=== PATIENT | female | born 1940 | race Caucasian/White ===

== ENCOUNTER 2016-10-23 12:17 | Inpatient (IN) ==
[2016-10-23 13:38] LABS: BASOPHILS # (AUTO) 0.1 K/uL (0-0.2); BASOPHILS % (AUTO) 0.5 % (0.0-3.0); EOSINOPHILS % (AUTO) 0.3 % (0.0-7.0); HEMATOCRIT 39.5 % (37.0-47.0); HEMOGLOBIN 14.2 g/dl (12.0-16.0); LYMPHOCYTES # (AUTO) 0.8 K/uL (0.60-3.4); LYMPHOCYTES % (AUTO) 5.3 (10.0-50.0); MEAN CORPUSCULAR HEMOGLOBIN 30.7 pg (27.0-31.0); MEAN CORPUSCULAR HGB CONC 35.9 (31.8-35.4); MEAN CORPUSCULAR VOLUME 85.3 fl (81.0-99.0); MONOCYTES % (AUTO) 6.7 (0-10); NEUTROPHILS # (AUTO) 12.7 K/ul (2.0-6.9); NEUTROPHILS % (AUTO) 86.2; PLATELET COUNT 266 10^3/uL (140-440); RED BLOOD COUNT 4.63 10^6/ul (4.20-5.40); WHITE BLOOD COUNT 14.73 K/ul (4.6-10.2)
[2016-10-23 14:28] LABS: ALBUMIN 3.4 g/dL (3.4-5.0); ALBUMIN/GLOBULIN RATIO 0.81; ANION GAP 21.9; BILIRUBIN,TOTAL 1.24 mg/dL (0.00-1.20); BUN/CREATININE RATIO 35.83; CALCIUM 10.5 mg/dL (8.2-10.2); CREATININE 1.2 mg/dL (0.60-1.30); POTASSIUM 3.9 mmol/L (3.5-5.10); TOTAL PROTEIN 7.6 g/dL (5.8-8.1); TROPONIN I 0.03 ng/ml (0.0000-0.4000)
[2016-10-23 14:31] LABS: CREATINE KINASE MB 14.7 ng/ml (0.0-3.6)
--- NOTE | 2016-10-23 14:45 | DI ---
EXAM: Single AP view of the chest HISTORY: Cough. COMPARISON: None FINDINGS: The cardiomediastinal silhouette is normal. There is no pneumothorax or pleural effusion. There is no consolidation, nodule or mass. Calcified right hilar lymph nodes are present. Osseou s structures demonstrate degenerative disease of the spine and left shoulder. IMPRESSION: No acute cardiopulmonary process.
--- NOTE | 2016-10-23 14:53 | CT ---
EXAM: CT ABDOMEN AND PELVIS HISTORY: Abdominal pain TECHNIQUE: CT abdomen and pelvis without intravenous contrast. Images were reconstructed using 5 m m section thickness. Reformations were prepared. COMPARISON: None FINDINGS: Diagnostic limitations exist without including contrast enhanced images. No focal hepatic or spleni c lesions identified. 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 Gallbladder is absent. Pancreas and adrenal glands are within normal limits. Lobulated virgen l contours likely congenital in nature. No hydronephrosis or nephrolithiasis. Ureters are clear. There is mild atherosclerotic disease. No gastric distension. An appendix, if present is not seen. Bowel gas pattern is nonobstructive. Uterus and urinary bladder are within normal limits. There is no ascites or inflammatory infiltrati on of the abdominal fat. No abdominal wall hernia. Bones reveal moderately severe degenerative disc and facet disease of the lumbar spine. Lung bases are free of acute infiltrate. No pneumoperitoneum. IMPRESSION: No acute intra-abdominal or pelvic abnormality identified. Chronic and miscellaneous f indings as described above.
--- NOTE | 2016-10-23 15:14 | ED.PDOC ---
General ED Provider: Dr. JAYME AC Chief Complaint: Weakness Stated Complaint: weakness, fall , failure to thrive Time Seen by Physician: 12:30 Mode of Arrival: Stretcher Information Source: Patient, EMT Exam Limitations: No limitations Primary Care Provider: MODESTO AUGUSTIN Nursing and Triage Documentation Reviewed and Agree: Yes (denied neck or back pain has no pain) Miscellaneous Complaint Exam - Complex/Multi-System Complaint/Exam Onset/Duration: this is a steadily getting worse process , presented with no pain Symptoms Are: Still present Episodes Lasting: Weeks Initial Severity: Moderate Current Severity: Mild Location of Pain: no Pain Radiates to: N/A Character: N/A Aggravating: N/A Associated Signs and Symptoms: Reports: Dizziness, Weakness, Cough. Denies: Decreased responsiveness, Confusion, Agitation, Syncope, Headache, Short of air , Wheezing, Hemoptysis, Chest pain, Palpitations, Edema, Nausea, Vomiting, Diarrhea, Abdominal pain, Back pain, Dysuria, Hematemesis, Melena, Decreased oral intake, Fever, Diaphoresis, Immunocompromised, Anticoagulation Therapy, Recent medication changes, Indwelling medical scribe, Prior MRSA, Prior VRE, Recent trauma, Remote trauma Related History: Other (DINED HISTORY) Recent Echo/LV Function: No Respiratory Distress: None JVD Present: No Tachypnea Present: No Stridor Present: No Abdominal Findings: Present: Normal findings Glascow Coma Scale (see protocol): 15 Meningeal Signs Positive: No Focal Weakness: Present: None Focal Sensory Loss: Present: None Gait: Normal Gag Reflex Present: Yes Babinski Sign: Negative Right, Negative Left Skin Findings: Present: Normal findings Differential Diagnosis: Aspiration, Cardiac Ischemia, Metabolic Abnormality Quality Indicators for Cardiac Chest Pain: EKG in 10min. Quality Indicators for AMI: EKG in 10min. Quality Indicator For Non-Traumatic Chest Pain/Syncope: EKG Performed Review of Systems - Review Of Systems Constitutional: Reports: Malaise, Weakness Eyes: Reports: No symptoms Ears, Nose, Mouth, Throat: Reports: No symptoms Respiratory: Reports: Cough Cardiac: Reports: No symptoms GI: Reports: No symptoms : Reports: No symptoms Musculoskeletal: Reports: No symptoms Skin: Reports: No symptoms Neurological: Reports: No symptoms Endocrine: Reports: No symptoms Hematologic/Lymphatic: Reports: No symptoms All Other Systems: Reviewed and Negative Past Medical History - Past Medical History Previously Healthy: Yes Endocrine: Reports: None Cardiovascular: Reports: None Respiratory: Reports: None Hematological: Reports: None Gastrointestinal: Reports: None Genitourinary: Reports: None Neuro/Psych: Reports: None Musculoskeletal: Reports: None Cancer: Reports: None Last Menstrual Period: MENOPAUSE - Surgical History General Surgical History: Reports: None - Family History Family History: Reports: None - Social History Smoking Status: Current every day smoker Hx Substance Use: No Alcohol Screening: None - Immunizations Tetanus Shot up to Date: No Physical Exam - Physical Exam Appearance: Well-appearing, No pain distress, Well-nourished Eyes: JUAN, EOMI, Conjunctiva clear ENT: Ears normal, Nose normal, Oropharynx normal Respiratory: Airway patent, Breath sounds clear, Breath sounds equal, Respirations nonlabored Cardiovascular: RRR, Pulses normal, No rub, No murmur GI/: Soft, Nontender, No masses, Bowel sounds normal, No Organomegaly Musculoskeletal: Normal strength, ROM intact, No edema, No calf tenderness Skin: Warm, Dry, Normal color Neurological: Sensation intact, Motor intact, Reflexes intact, Cranial nerves intact, Alert, Oriented Psychiatric: Affect appropriate, Mood appropriate Physician Notification - Case Discussed Physician Notified: LAN Time of Notification: 15:17 Admit To: Inpatient Critical Care Note - Critical Care Note Total Time (mins): 0 Course - Course Hematology/Chemistry: 10/23/16 13:10 10/23/16 13:10 Orders, Labs, Meds: Lab Review 10/23/16 13:10 WBC 14.73 H RBC 4.63 Hgb 14.2 Hct 39.5 MCV 85.3 MCH 30.7 MCHC 35.9 H RDW Coeff of Yocasta 12.7 Plt Count 266 Immature Gran % (Auto) 1.0 Neut % (Auto) 86.2 Lymph % (Auto) 5.3 L [place] % (Auto) 6.7 Eos % (Auto) 0.3 Baso % (Auto) 0.5 Immature Gran # (Auto) 0.1 Neut # 12.7 H Lymph # 0.8 [place] # 1.0 Eos # 0.0 Baso # 0.1 Sodium 140 Potassium 3.9 Chloride 97 L Carbon Dioxide 25 Anion Gap 21.9 BUN 43 H Creatinine 1.20 Estimated GFR (MDRD) 44.00 BUN/Creatinine Ratio 35.83 Glucose 320 H Lactic Acid 13.6 Calcium 10.5 H Total Bilirubin 1.24 H AST 39 H ALT 35 Alkaline Phosphatase 99 Total Creatine Kinase 783 CK-MB (CK-2) 14.7 H* CK-MB (CK-2) % 1.83332 Troponin I 0.0300 Total Protein 7.6 Albumin 3.4 Globulin 4.2 Albumin/Globulin Ratio 0.81 Procalcitonin 0.09 Orders Category Date Time Status EKG-(ED ONLY) Stat CARDIO 10/23/16 13:59 Completed BLOOD CULTURE Stat LAB 10/23/16 13:10 Received CBC W/ AUTO DIFF Stat LAB 10/23/16 13:10 Completed COMPREHENSIVE METABOLIC PANEL Stat LAB 10/23/16 13:10 Completed CREATINE KINASE Stat LAB 10/23/16 13:10 Completed LACTIC ACID Stat LAB 10/23/16 13:10 Completed PROCALCITONIN Stat LAB 10/23/16 13:10 Completed TROPONIN I Stat LAB 10/23/16 13:10 Completed UA [URINALYSIS C & S IF INDICATED] Stat LAB 10/23/16 12:39 Uncollected CHEST, 1V AP ONLY Stat RADS 10/23/16 12:[address] ABDOMEN/PELVIS WO CONTRAST Stat RADS 10/23/16 12:36 Completed Vital Signs: Temp Pulse Resp BP Pulse Ox 10/23/16 12:19 98.1 F 87 18 130/70 100 Departure - Departure Time of Disposition: 15:16 Disposition: ADMITTED INPATIENT Discharge Problem: New onset type 2 diabetes mellitus Instructions: Weakness (ED) Condition: Good Pt referred to PMD for follow-up: Yes Additional Instructions: Please call your Family Physician as soon as possible to schedule a follow-up appointment. Allergies/Adverse Reactions: Allergies Unobtainable Allergy (Unverified 10/23/16 12:36) pt sl confused--unable to give accurate info Home Medications: Ambulatory Orders 1 [No Reported Medications] 10/23/16
[2016-10-23] MEDS ORDERED: SODIUM CHLORIDE 1,800 ML IV SCH (15:30)
[2016-10-23] MEDS: SODIUM CHLORIDE 1,000 ML IV SCH (16:55)
[2016-10-23 17:18] VITALS: BMI 25.9
[2016-10-23] MEDS: HUMULIN R SUBCUT PRN ×2 (17:47→22:43)
[2016-10-23 22:30] LABS: TROPONIN I 0.027 ng/ml (0.0000-0.4000)
[2016-10-23 22:44] LABS: CREATINE KINASE MB 5.9 ng/ml (0.0-3.6)
[2016-10-24] MEDS: SODIUM CHLORIDE 1,000 ML IV SCH ×3 (00:33→18:38)
[2016-10-24] MEDS: HUMULIN R SUBCUT PRN ×4 (05:23→23:14)
[2016-10-24 05:40] LABS: BASOPHILS # (AUTO) 0.1 K/uL (0-0.2); BASOPHILS % (AUTO) 0.4 % (0.0-3.0); EOSINOPHILS # (AUTO) 0.3 K/ul (0.0-0.7); EOSINOPHILS % (AUTO) 2.4 % (0.0-7.0); HEMATOCRIT 33.7 % (37.0-47.0); IMMATURE GRANULOCYTE % (AUTO) 0.7 % (0.0-5.0); LYMPHOCYTES # (AUTO) 1.6 K/uL (0.60-3.4); LYMPHOCYTES % (AUTO) 14.4 (10.0-50.0); MEAN CORPUSCULAR HEMOGLOBIN 30.8 pg (27.0-31.0); MEAN CORPUSCULAR HGB CONC 35.6 (31.8-35.4); MEAN CORPUSCULAR VOLUME 86.6 fl (81.0-99.0); MONOCYTES # (AUTO) 1.1 K/uL (0.4-2.0); MONOCYTES % (AUTO) 9.8 (0-10); NEUTROPHILS # (AUTO) 8.1 K/ul (2.0-6.9); NEUTROPHILS % (AUTO) 72.3; PLATELET COUNT 219 10^3/uL (140-440); RED BLOOD COUNT 3.89 10^6/ul (4.20-5.40); WHITE BLOOD COUNT 11.22 K/ul (4.6-10.2)
[2016-10-24 05:56] LABS: ALBUMIN 2.7 g/dL (3.4-5.0); ALBUMIN/GLOBULIN RATIO 0.82; ANION GAP 16.8; BILIRUBIN,TOTAL 0.99 mg/dL (0.00-1.20); BUN/CREATININE RATIO 43.03; CALCIUM 9.4 mg/dL (8.2-10.2); CREATININE 0.79 mg/dL (0.60-1.30); POTASSIUM 3.8 mmol/L (3.5-5.10)
[2016-10-24 06:12] LABS: TROPONIN I 0.03 ng/ml (0.0000-0.4000)
[2016-10-24 06:13] LABS: CREATINE KINASE MB 3.2 ng/ml (0.0-3.6)
[2016-10-24 08:34] LABS: CHOL/HDL RATIO 4.5 (4.5-5.5)
[2016-10-24] MEDS: JANUVIA PO SCH (08:38)
[2016-10-24] MEDS: GLUCOPHAGE PO SCH ×2 (08:38→18:38)
[2016-10-24] MEDS: ZESTRIL PO SCH (08:39)
--- NOTE | 2016-10-24 15:16 | US ---
EXAM: ULTRASOUND CAROTID DUPLEX, BILATERAL HISTORY: Confusion, disorientation, weakness FINDINGS: Wall-scale ultrasound, color Doppler and spectral analysis was performed. Velocities are in meters per second. By wall scale and color Doppler imaging, there were multiple regions of heterogeneous plaque formati on identified within the carotid bulbs and internal carotid arteries. These regions of plaque appea red to remain less than 50% vessel diameter. RIGHT: External carotid artery peak systolic velocity: 1.3 Common carotid artery peak systolic velocity/end diastolic velocity: 0.6/0.0 Internal carotid artery peak systolic velocity: 0.7 ICA/CCA peak systolic velocity ratio: 1.3 ICA end diastolic velocity: 0.0 LEFT: External carotid artery peak systolic velocity: 1.2 Common carotid artery peak systolic velocity/end diastolic velocity: 0.8/0.1 Internal carotid artery peak systolic velocity: 0.9 ICA/CCA peak systolic velocity ratio: 1.1 ICA end diastolic velocity: 0.2 The right and left vertebral arteries were antegrade. IMPRESSION: 1. By wall scale and color Doppler imaging, there were multiple regions of heterogeneous plaque for mation identified within the carotid bulbs and internal carotid arteries. These regions of plaque a ppeared to remain less than 50% vessel diameter. 2. Internal carotid artery peak systolic velocities and ICA/CCA peak systolic velocity ratios indic ate no hemodynamically significant stenosis bilaterally. 3. Both tibial arteries were antegrade.
[2016-10-24] MEDS ORDERED: LOVENOX SUBCUT SCH (15:30)
--- NOTE | 2016-10-24 16:09 | CT ---
EXAM: CT head without contrast HISTORY: Altered mental status COMPARISON: None TECHNIQUE: Helical axial CT of the head was performed without contrast. Coronal and sagittal reconst ructions were performed. FINDINGS: There is an area of low attenuation seen involving the left posterior temporal and occipital area w ith some minimal mass effect. There are small punctate foci of relatively increased attenuation se en in the area as well. There is no lobar hemorrhage. There is no midline shift or herniation. Ther e is no hydrocephalus or subdural. There is noted to be a fair amount of atrophy and chronic small vessel ischemia in the white matter otherwise. There are no acute calvarial lesions. Visualized orbits and globes are unremarkable. The mastoid a ir cells demonstrate no significant soft tissue opacification. The visualized paranasal sinuses show no air-fluid levels. IMPRESSION: 1. Low attenuation as described in the left temporal occipital area consistent with a subacute infa rction probably with some minimal petechial hemorrhage. No evidence for lobar hemorrhage or mass ef fect or midline shift. 2. Atrophy and small vessel ischemic change. Report called to Addy RODRIGUEZ at 4:00 p.m.
[2016-10-25 04:52] LABS: BILIRUBIN,URINE Negative (NEGATIVE); KETONES,URINE Negative (NEGATIVE); LEUKOCYTE ESTERASE ,URINE Trace (NEGATIVE); NITRITE,URINE Negative (NEGATIVE); PH,URINE 5.5 (5-9); PROTEIN,URINE 1+ (NEGATIVE); URINE, BLOOD Trace-intact (NEGATIVE)
[2016-10-25 05:02] LABS: ADD URINE MICROSCOPIC YES
[2016-10-25 05:06] LABS: BACTERIA,URINE 1+ (NOT PRESENT)
[2016-10-25 05:48] LABS: BASOPHILS # (AUTO) 0.1 K/uL (0-0.2); BASOPHILS % (AUTO) 0.8 % (0.0-3.0); EOSINOPHILS # (AUTO) 0.3 K/ul (0.0-0.7); EOSINOPHILS % (AUTO) 2.5 % (0.0-7.0); HEMATOCRIT 34.6 % (37.0-47.0); HEMOGLOBIN 12.1 g/dl (12.0-16.0); IMMATURE GRANULOCYTE % (AUTO) 1.9 % (0.0-5.0); LYMPHOCYTES # (AUTO) 1.6 K/uL (0.60-3.4); LYMPHOCYTES % (AUTO) 16.4 (10.0-50.0); MEAN CORPUSCULAR HEMOGLOBIN 30.7 pg (27.0-31.0); MEAN CORPUSCULAR VOLUME 87.8 fl (81.0-99.0); MONOCYTES # (AUTO) 1.1 K/uL (0.4-2.0); NEUTROPHILS # (AUTO) 6.6 K/ul (2.0-6.9); NEUTROPHILS % (AUTO) 67.4; PLATELET COUNT 210 10^3/uL (140-440); RED BLOOD COUNT 3.94 10^6/ul (4.20-5.40); WHITE BLOOD COUNT 9.83 K/ul (4.6-10.2)
[2016-10-25] MEDS: HUMULIN R SUBCUT PRN ×4 (05:49→22:31)
[2016-10-25 06:23] LABS: ALBUMIN 2.5 g/dL (3.4-5.0); ALBUMIN/GLOBULIN RATIO 0.81; BILIRUBIN,TOTAL 0.66 mg/dL (0.00-1.20); BUN/CREATININE RATIO 36.58; CALCIUM 8.9 mg/dL (8.2-10.2); CREATININE 0.82 mg/dL (0.60-1.30); TOTAL PROTEIN 5.6 g/dL (5.8-8.1)
[2016-10-25] MEDS: GLUCOPHAGE PO SCH ×2 (07:49→16:56)
[2016-10-25] MEDS: ZESTRIL PO SCH (08:37)
[2016-10-25] MEDS: JANUVIA PO SCH (08:37)
[2016-10-25] MEDS: ROCEPHIN 1 GM in SODIUM CHLORIDE 50 ML IV SCH (09:00)
[2016-10-25] MEDS: SODIUM CHLORIDE 1,000 ML IV SCH ×2 (09:05→20:07)
--- NOTE | 2016-10-25 12:53 | PCM.PROG ---
Attending Provider: ATTENDING PROVIDER: Dr. PAVEL MONTENEGRO DATE OF SERVICE: 10/25/16 SUBJECTIVE: This 76 year old WHITE/ F was hospitalized 10/23/16. The patient is alert, lying in bed. CT scan of head showed left temporal ischemia with small hemorrhage. The patient is awake and alert but still has some confusion. REVIEW OF SYSTEMS: CONSTITUTIONAL: Weakness. No fever, no chills. ENDOCRINE: No weight loss or weight gain. HEENT: No sinus drainage, no sore throat. CVS: No angina symptoms. No CHF symptoms. No palpitations. No atypical chest pain for CAD. No shortness of breath. RESPIRATORY: No cough, no hemoptysis. GI: No melena. No abdominal pain. No nausea, no vomiting. : No hematuria. No polyuria. SKIN: Abrased area to buttocks. MUSCULOSKELETAL: No pain. SHEEP STICKER: Awake and alert, some confusion. No blackout, no dizziness. No headache. No double vision. PSYCHIATRIC: Not anxious; no depression. No suicidal thoughts. No homicidal thoughts. PHYSICAL EXAMINATION: GENERAL: Lying in bed in no distress. VITAL SIGNS: Temperature 97.8 F, Pulse 77, Respiratory Rate 19, BP 139/70, Pulse Ox 96% HEENT: Normocephalic, atraumatic. Mucosa is dry, pallor positive. NECK: No JVP, no carotid bruit. No lymphadenopathy. CARDIAC: S1, S2, no S3. Systolic murmur. LUNGS: Decreased breath sounds. Clear to auscultation. ABDOMEN: Soft, non-tender. Bowel sounds active. No rigidity, guarding or CVA tenderness. EXTREMITIES: No clubbing, cyanosis or edema. NEUROLOGIC: Awake, alert with some confusion to person and place. Moving all four extremities. Gait is not tested yet as patient is weak . LYMPHATIC: No palpable lymph nodes SKIN: Dry. Abrased area to buttocks. MUSCULOSKELETAL: No joint swelling. LAB REVIEW: 10/25/16 05:30 10/25/16 05:30 10/25/16 05:30: WBC 9.83, RBC 3.94 L, Hgb 12.1, Hct 34.6 L, MCV 87.8, MCH 30.7, MCHC 35.0, RDW Coeff of Yocasta 12.6, Plt Count 210, Immature Gran % (Auto) 1.9, Neut % (Auto) 67.4, Lymph % (Auto) 16.4, [place] % (Auto) 11.0 H, Eos % (Auto) 2.5 , Baso % (Auto) 0.8, Immature Gran # (Auto) 0.2, Neut # 6.6, Lymph # 1.6, [place] # 1.1, Eos # 0.3, Baso # 0.1, Sodium 139, Potassium 4.0, Chloride 100, Carbon Dioxide 30, Anion Gap 13.0, BUN 30 H, Creatinine 0.82, Estimated GFR (MDRD) 68.00, BUN/Creatinine Ratio 36.58, Glucose 224 H, Calcium 8.9, Total Bilirubin 0.66, AST 17, ALT 19, Alkaline Phosphatase 89, Total Protein 5.6 L, Albumin 2.5 L, Globulin 3.1, Albumin/Globulin Ratio 0.81 10/25/16 02:30: Urine Color Yellow, Urine Clarity Clear, Urine pH 5.5, Ur Specific [place] <=1.005, Urine Protein 1+, Urine Glucose (UA) 1+, Urine Ketones Negative, Urine Blood Trace-intact, Urine Nitrite Negative, Urine Bilirubin Negative, Urine Urobilinogen 0.2, Ur Leukocyte Esterase Trace, Urine Microscopic RBC 2-5, Urine Microscopic WBC 0-2, Ur Squamous Epith Cells 0-2, Amorphous Sediment 1+, Urine Bacteria 1+ 10/24/16 05:15: Triglycerides 140, Cholesterol 180, LDL Cholesterol, Calc 112, VLDL Cholesterol 28, HDL Cholesterol 40, Cholesterol/HDL Ratio 4.5 ASSESSMENT: 1. Acute left temporal infarct with hemorrhage, will have MRI today. 2. Diabetes mellitus, new onset. 3. Early rhabdomyolysis. 4. Status post fall. 5. Failure to thrive. 6. UTI. 7. Status post dehydration. 8. Abrasion to buttocks, grew gram negative rods. PLAN: 1. Rocephin 1 gm daily 2. Straight catheter 3. UA 4. MRI of the brain with and without 5. PT/OT consultation Plan and coordination of the patient's care discussed in the presence of Tube Sizer Operator and nurse. CONDITION: Stable SCRIBED BY: MAMADOU CRAFT, Print Traffic Manager scribed while in presence of service performed by Dr. PAVEL MONTENEGRO on 10/25/16 ([id number])
[2016-10-25] MEDS ORDERED: CALMOSEPTINE OINTMENT TP ONE (14:30)
--- NOTE | 2016-10-25 14:56 | HP ---
DATE OF SERVICE: 10/23/16 CHIEF COMPLAINT: Weakness. HISTORY OF PRESENT ILLNESS: This is a 76-year-old female who lives at home by herself, gets [employer]. When the [employer] worker went to her home she was found lying on the floor, did not know how long she had been on the floor, not feeling well, no energy, unkept, strong urine odor. The EMT brought the patient to the emergency room and she was seen by Dr. Howard. The patient was awake but not oriented, confused. Initial blood work showed sugars were 320. Creatinine kinase 783, CK-MB 14. White count 14,000. The patient was complaining of generalized weakness and tiredness. At that time, the patient was admitted to the hospital for failure to thrive, new onset diabetes and further evaluation. CT abdomen and pelvis was negative in the emergency room. REVIEW OF SYSTEMS: CONSTITUTIONAL: Weakness, tiredness. Unable to care for herself. No fever, no chills. HEENT: Normal. ENDOCRINE: No weight gain; no weight loss. CVS: No chest pain. No PND, no orthopnea. No shortness of breath. No PND, no orthopnea. RESPIRATORY: No cough, no congestion. No hemoptysis. GI: No nausea, no vomiting. No abdominal pain. No melena. : Frequency and burning of urination. MUSCULOSKELETAL: No joint swelling. PSYCHIATRIC: Not anxious. No depression. No suicidal thoughts. No homicidal thoughts. SKIN: Intact. PAST MEDICAL HISTORY: 1. Hypertension 2. CAD, does not know what type 3. Alzheimer's dementia 4. Peripheral neuropathy 5. Diabetes but not on any medications PAST SURGICAL HISTORY: 1. Cataract surgery PERSONAL HISTORY: Lives at home, dependent upon ADLs. The patient does not smoke now, use to smoke in the past. FAMILY HISTORY: Significant for heart problems. MEDICATIONS: (HOME) None at this time. ALLERGIES: NKDA PHYSICAL EXAMINATION: GENERAL: Sick-looking lady lying in bed not in any distress. V/S: BP 130/70, respiratory rate 18, heart rate 87, temperature 98.1. HEENT: Atraumatic, normocephalic. No scleral icterus. Mucosa dry. NECK: Supple. No JVD, no bruit. No lymphadenopathy. No thyromegaly. HEART: S1, S2 normal. No murmur. No cyanosis or clubbing. No ascites. LUNGS: Decreased and clear to auscultation. No rales or rhonchi. ABDOMEN: Soft, nontender. Bowel sounds are active. No CVA tenderness. No rigidity or guarding. EXTREMITIES: No cyanosis, clubbing or pedal edema. MUSCULOSKELETAL: Normal joints, no swelling. NEUROLOGIC: The patient is awake and alert. Orientation - confused to place and person. Moving all four extremities. SKIN: Intact. LYMPHATIC: No lymph nodes palpable. LABS: White count 14.73, hemoglobin 14.2, hematocrit 39.5, platelet count 266. Sodium 140, potassium 3.9, chloride 97, bicarb 25, BUN 43, creatinine 1.20, glucose 320. Lactic acid 13.6, calcium 10.5. CK-MB 14.7. ASSESSMENT: 1. NEW ONSET DIABETES 2. FAILURE TO THRIVE 3. ALZHEIMER'S DEMENTIA 4. EARLY RHABDOMYOLYSIS 5. ELEVATED WHITE COUNT, RULE OUT ANY INFECTION PLAN: 1. Admit the patient to regular floor. 2. CBC, CMP today and daily. 3. Cardiac enzymes and troponin. 4. Accu-Cheks with coverage. 5. HB A1C. 6. IV fluids at 60 mL/hr. 7. Fall precautions. 8. Decubitus ulcer precautions. 9. Will get a CT scan of the head. TIME SPENT: MORE THAN 70 minutes MTDD
--- NOTE | 2016-10-25 17:04 | RS.OTINEVL ---
Subjective - Patient information Date of Evaluation: 10/25/16 Date of Arrival on Unit: 10/25/16 Admitted From:: Home Usual Living Arrangement: Alone Living Arrangement Comments: Lives in her home alone. She reports she cooks for herself. She reports they found her on the floor. Home Environment: House Subjective Information/ Patient Comments:: I have a hard time controlling my left arm. I am used to the right one but not the left. 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 Pt walked with a rolling walker at home. Current Level of Function: Independent Current Equipment Used at Home: Has a wheelchair Pain Assessment - Pain Pain Score: 0 (Pt said her right leg hurt) Pain Location Body Site: Knee Pain Aggravating Factors: Changing Position Pain Alleviating Factors: Medication Interventions - Objective Patient Orientation: Person, Place, Situation Current Interventions: IV's Observation: Pt has some scabs on her left elbow from other falls. Pt reported she has had several falls. Interventions - ROM Right Upper Extremity AROM: WFL's Left Upper Extremity AROM: Slight limitation - Strength Right Upper Extremity Strength: Mild Weakness Left Upper Extremity Strength: Mild Weakness - Sensation Right Upper Extremity Sensation: Intact/Normal Left Upper Extremity Sensation: Intact/Normal Comments:: Pt LUE coordination is impaired. Coordination - Tests Left Comments: Pt had difficulty bringing hands together at midline. Pt had difficult clapping due to impaired coordination. Pt reported she did pretty good feeding herself today. Pt had difficulty brining the water pitcher and straw to her mouth. Balance - Sitting Balance Static Sitting Balance: Poor Dynamic Sitting Balance: Poor - Standing Balance Static Standing Balance: Poor Dynamic Standing Balance: Poor - Comments Balance Assessment Comments: Pt refused to get up and sit EOB or to walk with OT at this time. ADL Skills - Self Feeding Self Feeding: CGA, Min Assist - Grooming Grooming: Mod Assist - Bathing Bathing UE: Mod Assist Bathing LE: Max Assist - Dressing Dressing UE: Mod Assist Dressing LE: Max Assist - Toilet Management Toileting Management: Max Assist Functional Mobility - Bed Mobility Rolling R/L: Min Assist Scooting: Mod Assist Supine to Sit: Mod Assist Sit to Supine: Mod Assist - Transfers Sit to Stand: Not Tested Stand to Sit: Not Tested Stand Pivot Transfers: Not Tested Comments:: Pt would not let OT test transfers today. - Ambulation Assistive Device Used: Rolling Walker Assistance needed with Ambulation: Mod Assist - Safety Awareness Safety Awareness: Fair Additional Treatment Performed - Additional units charged ADL: 15 - Time with patient Total treatment time: 25 Activities Patient Interests:: Watching Television Patient Education Patient Education: Education of diagnosis, Home Exercise Program, Activity Modification, Education of Plan of Care Teaching Recipient: Patient Teaching Methods: Discussion, Demonstration Assessment Problem List:: Decreased level of function, Requires training/education, Decreased safety/Risk of falls, Weakness Rehab Potential: Good Further Therapy Indicated?: Yes Comments: Pt appears to have impaired coordination of LUE and has difficulty crossing midline. Pt reports she has a lot of trouble with her legs when she tries to walk. Short Term Goals - Goals GOAL 1: Pt to increase coordination of UE to be intact for self feeding. Goal to be met by: 11/01/16 GOAL 2: Pt to complete standing ADL with minimal assistance. Goal to be met by: 11/01/16 GOAL 3: Pt to increase activity tolerance to 15 minutes with rests PRN> Goal to be met by: 11/01/16 Care Home Goals GOAL 1: Pt to increase coordination of UE to be intact for self feeding to be indep Goal to be met by: 11/08/16 GOAL 2: Pt to complete standing ADL with CGA. Goal to be met by: 11/08/16 GOAL 3: Pt to increase activity tolerance to 20 minutes with rests PRN. Goal to be met by: 11/08/16 Plan Plan of Care: Therapeutic EX, Neuromuscular Re-Educ, Therapeutic Activity, Self- Care/Home Management Frequency of Treatment: 1-2 X day, as tolerated Duration of Treatment: 2 Weeks Anticipated Discharge Destination: Care Home Care Facility
--- NOTE | 2016-10-25 17:16 | MRI ---
EXAM: Brain MRI without contrast. HISTORY: Minimal petechial hemorrhage, left temporal lobe stroke. COMPARISON: Head CT 10/24/2016. TECHNIQUE: Multiplanar, multisequence MR images were acquired of the brain without contrast. FINDINGS: The midline structures are central and the craniocervical junction is unremarkable. The v entricles, sulci and cisterns are generally mildly enlarged compatible with mild diffuse cerebral vo lume loss. A small normal variant cavum septum pellucidum is incidentally noted. There is a moderately large acute left WRAPPER SELECTOR stroke with diffusion restriction and bright T2 / FLAIR s ignal involving the medial left temporal and occipital lobes. There is mild swelling of the gyri wi th local sulcal effacement and there is curvilinear dark gradient echo signal in the occipital compo nent consistent with mild to moderate hemorrhagic conversion. There are also small sub-centimeter a cute infarcts with diffusion restriction and bright T2 signal in the dorsal lateral left thalamus an d right occipital lobe. There is a faint focus of diffusion restriction with slightly hypointense A DC, mildly bright B 1000 and faint FLAIR signal in the medial left thalamus that may represent a sma ll focus of recent ischemia. Patchy T2 hyperintensities are present in the supratentorial white matter and rhea consistent with m ild to moderate supratentorial and mild pontine leukomalacia. There is a chronic lacunar in the lef t posterior external capsule. The corpus callosum has a normal configuration. The pituitary gland is unremarkable. There are no intraorbital masses. There has been previous lens surgery bilaterally. Rightward nasa l septal deviation is present. There is minor focal mucosal thickening in the right maxillary antru m. Mild adenoidal hypertrophy is present and there is mucosal thickening and a trace of fluid in a minor number of the right mastoid air cells and a mild number of the left. There is a small 1 cm AP by 1.1 cm TX by 1.4 cm CC ovoid hyperintense T2 signal lesion in the superficial lobe of the right parotid gland. This is diffuse and linear septations inferiorly. Flow voids are present in the major intracranial arteries. However, the flow voids of both posterio r cerebral arteries are small and there is incomplete visualization of the left posterior cerebral a rtery which has intermediate T2 signal suspicious for a proximal high-grade stenosis or occlusion. Dural venous sinuses are patent. IMPRESSION: 1. Acute left WRAPPER SELECTOR temporo-occipital lobe infarct with hemorrhagic conversion and local mass effect. 2. Small acute subcentimeter infarcts left thalamus and right occipital lobe. 3. Mild to moderate supratentorial mild pontine chronic ischemic small vessel disease and chronic l henderson left posterior external capsule. 4. Findings suspicious for a high-grade stenosis or occlusion of the proximal left posterior cerebr al artery. Critical results telephoned to the brar nurse caring for the patient at 5 o'clock p.m.
[2016-10-25] MEDS: CALMOSEPTINE OINTMENT TP SCH (20:07)
[2016-10-26 04:56] LABS: BASOPHILS # (AUTO) 0.1 K/uL (0-0.2); EOSINOPHILS # (AUTO) 0.2 K/ul (0.0-0.7); EOSINOPHILS % (AUTO) 2.7 % (0.0-7.0); HEMATOCRIT 33.6 % (37.0-47.0); HEMOGLOBIN 11.6 g/dl (12.0-16.0); IMMATURE GRANULOCYTE % (AUTO) 2.5 % (0.0-5.0); LYMPHOCYTES # (AUTO) 1.6 K/uL (0.60-3.4); LYMPHOCYTES % (AUTO) 20.2 (10.0-50.0); MEAN CORPUSCULAR HEMOGLOBIN 30.5 pg (27.0-31.0); MEAN CORPUSCULAR HGB CONC 34.5 (31.8-35.4); MEAN CORPUSCULAR VOLUME 88.4 fl (81.0-99.0); MONOCYTES # (AUTO) 1.1 K/uL (0.4-2.0); MONOCYTES % (AUTO) 13.4 (0-10); NEUTROPHILS # (AUTO) 4.9 K/ul (2.0-6.9); NEUTROPHILS % (AUTO) 60.2; PLATELET COUNT 203 10^3/uL (140-440); WHITE BLOOD COUNT 8.11 K/ul (4.6-10.2)
[2016-10-26 05:15] LABS: ALBUMIN 2.2 g/dL (3.4-5.0); ALBUMIN/GLOBULIN RATIO 0.71; BILIRUBIN,TOTAL 0.43 mg/dL (0.00-1.20); BUN/CREATININE RATIO 28.57; CREATININE 0.7 mg/dL (0.60-1.30); TOTAL PROTEIN 5.3 g/dL (5.8-8.1)
[2016-10-26] MEDS: HUMULIN R SUBCUT PRN ×4 (05:53→21:55)
[2016-10-26] MEDS: JANUVIA PO SCH (09:27)
[2016-10-26] MEDS: ZESTRIL PO SCH (09:27)
[2016-10-26] MEDS: ROCEPHIN 1 GM in SODIUM CHLORIDE 50 ML IV SCH (09:27)
[2016-10-26] MEDS: GLUCOPHAGE PO SCH ×2 (09:27→17:04)
[2016-10-26] MEDS: CALMOSEPTINE OINTMENT TP SCH ×2 (09:32→20:19)
[2016-10-26] MEDS: SODIUM CHLORIDE 1,000 ML IV SCH (13:52)
--- NOTE | 2016-10-26 14:55 | PN ---
DATE OF SERVICE: 10/24/16 SUBJECTIVE: The patient was admitted with new onset diabetes. The patient's sugars are 189 today morning. Complains about still having the weakness. Urine has been not collected yet. REVIEW OF SYSTEMS: CONSTITUTIONAL: No fever, no chills. HEENT: Normal. ENDOCRINE: No weight gain, no weight loss. CVS: No angina symptoms. No CHF symptoms. No palpitations. No atypical chest pain for CAD. No shortness of breath. No PND, no orthopnea. RESPIRATORY: No cough, no hemoptysis. GI: No nausea, no vomiting. No abdominal pain. : No hematuria. No polyuria. MUSCULOSKELETAL:. No joint swelling. PSYCHIATRIC: Not anxious. No depression. No suicidal thoughts. No homicidal thoughts. SKIN: Intact. No rash. PHYSICAL EXAMINATION: V/S: Blood pressure 157/66, respiratory rate 15, heart rate 80 and temperature 97.1 HEENT: Normocephalic, atraumatic. Mucosa dry. Pallor positive. No icterus. NECK: Supple. No JVD, no carotid bruit. No lymphadenopathy. LUNGS: Clear to auscultation. No rales or rhonchi. HEART: S1, S2 normal. No S3. Systolic murmur positive, gallop or regurgitation. ABDOMEN: Soft, nontender. Bowel sounds active. No rigidity. No rebound or guarding. No CVA tenderness. EXTREMITIES: No clubbing, cyanosis or pedal edema. MUSCULOSKELETAL: No joint swelling. NEUROLOGIC: Awake, alert, oriented times three. No focal deficit. LYMPHATIC: No lymph nodes palpable. SKIN: Intact. LABS: Sodium 142, potassium 3.8, chloride 102, bicarb 27, BUN 34, creatinine 0.79, glucose 189, CK-MB 5.9, total creatine 356, WBC 11.22, hgb 12.0, hct 33.7, plt count 219 ASSESSMENT: 1. Status post fall 2. Failure to thrive 3. New onset diabetes 4. Early Rhabdomyolysis 5. Dehydration PLAN: 1. Start the patient in the Metformin and Januvia 2. IV fluids at 60 ml per hour 3. Accu-checks with the coverage 4. HbA1c 5. Lisinopril 10mg PO daily 6. Daily I&O's 7. Will started the patient on the DVT prophylaxis TIME SPENT: More than 30 minutes MTDD
[2016-10-27] MEDS: HUMULIN R SUBCUT PRN ×5 (00:06→23:17)
[2016-10-27 05:24] LABS: BASOPHILS # (AUTO) 0.1 K/uL (0-0.2); BASOPHILS % (AUTO) 1.3 % (0.0-3.0); EOSINOPHILS # (AUTO) 0.3 K/ul (0.0-0.7); EOSINOPHILS % (AUTO) 2.8 % (0.0-7.0); HEMOGLOBIN 11.8 g/dl (12.0-16.0); IMMATURE GRANULOCYTE % (AUTO) 3.7 % (0.0-5.0); LYMPHOCYTES # (AUTO) 1.9 K/uL (0.60-3.4); LYMPHOCYTES % (AUTO) 21.3 (10.0-50.0); MEAN CORPUSCULAR HEMOGLOBIN 30.7 pg (27.0-31.0); MEAN CORPUSCULAR HGB CONC 34.7 (31.8-35.4); MEAN CORPUSCULAR VOLUME 88.5 fl (81.0-99.0); MONOCYTES # (AUTO) 1.1 K/uL (0.4-2.0); MONOCYTES % (AUTO) 12.7 (0-10); NEUTROPHILS # (AUTO) 5.2 K/ul (2.0-6.9); NEUTROPHILS % (AUTO) 58.2; PLATELET COUNT 201 10^3/uL (140-440); RED BLOOD COUNT 3.84 10^6/ul (4.20-5.40); WHITE BLOOD COUNT 8.98 K/ul (4.6-10.2)
[2016-10-27] MEDS: SODIUM CHLORIDE 1,000 ML IV SCH ×2 (05:29→12:35)
[2016-10-27 05:42] LABS: ALBUMIN 2.2 g/dL (3.4-5.0); CALCIUM 9.1 mg/dL (8.2-10.2); POTASSIUM 4.1 mmol/L (3.5-5.10)
[2016-10-27 05:43] LABS: ALBUMIN/GLOBULIN RATIO 0.67; ANION GAP 12.1; BILIRUBIN,TOTAL 0.39 mg/dL (0.00-1.20); BUN/CREATININE RATIO 26.56; CREATININE 0.64 mg/dL (0.60-1.30); TOTAL PROTEIN 5.5 g/dL (5.8-8.1)
--- NOTE | 2016-10-27 07:19 | CT ---
EXAM: CT head without contrast HISTORY: Hemorrhagic stroke COMPARISON: CT head 10/24/2016 and MRI brain 10/25/2012 TECHNIQUE: Serial axial images of the brain were obtained from the skull base to the vertex without IV contrast. FINDINGS: There is low attenuation in the left temporal occipital area with no significant interval change in appearance. The petechial hemorrhage as seen on prior CT and is not significantly change d. There is no new hemorrhage. The ventricles, cisterns and sulci are unchanged with moderate generalized volume loss. The galvan-whi te matter junction is maintained. There is scattered low attenuation throughout the periventricular white matter. No midline shift or mass is identified. There is no abnormal intra or extra-axial f luid collection. The paranasal sinuses and mastoid air cells are clear. The osseous calvarium is i ntact. Redemonstrated is incidental right parotid nodule. Incompletely visualized measuring 1.2 x 0 .9 cm. IMPRESSION: 1. No change in appearance of left JAZZ MUSICIAN temporal occipital infarct with petechial hemorrhage. No fo morales acute hemorrhage is identified. 2. Stable scattered low attenuation throughout the periventricular white matter. 3. Stable chronic generalized volume loss.
[2016-10-27] MEDS: GLUCOPHAGE PO SCH ×2 (08:02→16:57)
[2016-10-27] MEDS: ROCEPHIN 1 GM in SODIUM CHLORIDE 50 ML IV SCH (09:05)
[2016-10-27] MEDS: CALMOSEPTINE OINTMENT TP SCH ×2 (09:06→20:14)
[2016-10-27] MEDS: ZESTRIL PO SCH (09:06)
[2016-10-27] MEDS: JANUVIA PO SCH (09:06)
[2016-10-27] MEDS ORDERED: VASOTEC IV IVP STA (20:06)
[2016-10-27] MEDS ORDERED: TUSSIONEX ONE (21:17)
[2016-10-28] MEDS: SODIUM CHLORIDE 1,000 ML IV SCH ×3 (00:56→13:54)
[2016-10-28 05:33] LABS: BASOPHILS # (AUTO) 0.1 K/uL (0-0.2); BASOPHILS % (AUTO) 1.4 % (0.0-3.0); EOSINOPHILS # (AUTO) 0.3 K/ul (0.0-0.7); EOSINOPHILS % (AUTO) 3.2 % (0.0-7.0); HEMATOCRIT 32.9 % (37.0-47.0); HEMOGLOBIN 11.5 g/dl (12.0-16.0); IMMATURE GRANULOCYTE % (AUTO) 3.4 % (0.0-5.0); LYMPHOCYTES # (AUTO) 2.3 K/uL (0.60-3.4); LYMPHOCYTES % (AUTO) 23.8 (10.0-50.0); MEAN CORPUSCULAR HEMOGLOBIN 30.9 pg (27.0-31.0); MEAN CORPUSCULAR VOLUME 88.4 fl (81.0-99.0); MONOCYTES # (AUTO) 1.3 K/uL (0.4-2.0); MONOCYTES % (AUTO) 13.7 (0-10); NEUTROPHILS # (AUTO) 5.2 K/ul (2.0-6.9); NEUTROPHILS % (AUTO) 54.5; PLATELET COUNT 216 10^3/uL (140-440); RED BLOOD COUNT 3.72 10^6/ul (4.20-5.40); WHITE BLOOD COUNT 9.62 K/ul (4.6-10.2)
[2016-10-28 06:00] LABS: ALBUMIN 2.2 g/dL (3.4-5.0); ALBUMIN/GLOBULIN RATIO 0.67; BILIRUBIN,TOTAL 0.34 mg/dL (0.00-1.20); BUN/CREATININE RATIO 23.07; CREATININE 0.65 mg/dL (0.60-1.30); TOTAL PROTEIN 5.5 g/dL (5.8-8.1)
[2016-10-28] MEDS: HUMULIN R SUBCUT PRN ×4 (07:13→20:16)
[2016-10-28] MEDS: CALMOSEPTINE OINTMENT TP SCH ×2 (08:31→20:17)
[2016-10-28] MEDS: ROCEPHIN 1 GM in SODIUM CHLORIDE 50 ML IV SCH (08:31)
[2016-10-28] MEDS: ZESTRIL PO SCH (08:33)
[2016-10-28] MEDS: JANUVIA PO SCH (08:33)
[2016-10-28] MEDS: GLUCOPHAGE PO SCH ×2 (08:33→17:06)
[2016-10-28] MEDS ORDERED: ZESTRIL PO SCH (13:30)
[2016-10-28 16:19] LABS: BILIRUBIN,URINE Negative (NEGATIVE); KETONES,URINE Negative (NEGATIVE); LEUKOCYTE ESTERASE ,URINE Trace (NEGATIVE); NITRITE,URINE Negative (NEGATIVE); PH,URINE 6.5 (5-9); PROTEIN,URINE 1+ (NEGATIVE); URINE, BLOOD Trace-lysed (NEGATIVE)
[2016-10-28 16:24] LABS: ADD URINE MICROSCOPIC YES
[2016-10-28 16:25] LABS: BACTERIA,URINE TRACE (NOT PRESENT)
[2016-10-29] MEDS: SODIUM CHLORIDE 1,000 ML IV SCH (00:09)
[2016-10-29 05:21] LABS: BASOPHILS # (AUTO) 0.1 K/uL (0-0.2); BASOPHILS % (AUTO) 1.5 % (0.0-3.0); EOSINOPHILS # (AUTO) 0.3 K/ul (0.0-0.7); EOSINOPHILS % (AUTO) 3.5 % (0.0-7.0); HEMATOCRIT 33.8 % (37.0-47.0); HEMOGLOBIN 11.6 g/dl (12.0-16.0); IMMATURE GRANULOCYTE % (AUTO) 3.4 % (0.0-5.0); LYMPHOCYTES # (AUTO) 2.4 K/uL (0.60-3.4); MEAN CORPUSCULAR HEMOGLOBIN 30.7 pg (27.0-31.0); MEAN CORPUSCULAR HGB CONC 34.3 (31.8-35.4); MEAN CORPUSCULAR VOLUME 89.4 fl (81.0-99.0); MONOCYTES # (AUTO) 1.3 K/uL (0.4-2.0); NEUTROPHILS % (AUTO) 52.6; PLATELET COUNT 229 10^3/uL (140-440); RED BLOOD COUNT 3.78 10^6/ul (4.20-5.40); WHITE BLOOD COUNT 9.44 K/ul (4.6-10.2)
[2016-10-29 05:41] LABS: ALBUMIN 2.2 g/dL (3.4-5.0); ALBUMIN/GLOBULIN RATIO 0.67; BILIRUBIN,TOTAL 0.37 mg/dL (0.00-1.20); BUN/CREATININE RATIO 22.22; CREATININE 0.72 mg/dL (0.60-1.30); TOTAL PROTEIN 5.5 g/dL (5.8-8.1)
[2016-10-29] MEDS: HUMULIN R SUBCUT PRN ×2 (06:21→14:24)
[2016-10-29] MEDS: GLUCOPHAGE PO SCH (08:40)
[2016-10-29] MEDS: ROCEPHIN 1 GM in SODIUM CHLORIDE 50 ML IV SCH (08:40)
[2016-10-29] MEDS: JANUVIA PO SCH (08:40)
[2016-10-29] MEDS: CALMOSEPTINE OINTMENT TP SCH (08:41)
[2016-10-29] MEDS ORDERED: ZESTRIL PO SCH (09:00)
[2016-10-29] MEDS ORDERED: LANTUS SUBCUT SCH (09:00)
[2016-10-29] MEDS ORDERED: NORVASC PO SCH (09:00)
[2016-10-29] MEDS ORDERED: SODIUM CHLORIDE 1,000 ML IV SCH (09:00)
[2016-10-29] MEDS ORDERED: LANTUS SUBCUT ONE (09:07)
--- NOTE | 2016-10-29 11:01 | PN ---
DATE OF SERVICE: 10/27/16 SUBJECTIVE: The patient was admitted with status post fall and found to have a acute stroke with ischemic change stroke changed to hemorrhagic. The patient's family decided who was the power of state attorney and decided no aggressive management. The patient is being admitted to the [facility] only and been treated at the [facility]. REVIEW OF SYSTEMS: CONSTITUTIONAL: No fever, no chills. HEENT: Normal. ENDOCRINE: No weight gain, no weight loss. CVS: No angina symptoms. No CHF symptoms. No palpitations. No atypical chest pain for CAD. No shortness of breath. No PND, no orthopnea. RESPIRATORY: No cough, no hemoptysis. GI: No nausea, no vomiting. No abdominal pain. : No hematuria. No polyuria. MUSCULOSKELETAL:. No joint swelling. PSYCHIATRIC: Not anxious. No depression. No suicidal thoughts. No homicidal thoughts. SKIN: Intact. No rash. PHYSICAL EXAMINATION: V/S: Blood pressure 160/84, respiratory rate 18, heart rate 86 and temperature 98.0. HEENT: Normocephalic, atraumatic. Mucosa dry. Pallor positive. No icterus. NECK: Supple. No JVD, no carotid bruit. No lymphadenopathy. LUNGS: Decreased and clear to auscultation. No rales or rhonchi. HEART: S1, S2 normal. No S3. No murmur, gallop or regurgitation. ABDOMEN: Soft, nontender. Bowel sounds active. No rigidity. No rebound or guarding. No CVA tenderness. EXTREMITIES: No clubbing, cyanosis or pedal edema. MUSCULOSKELETAL: No joint swelling. NEUROLOGIC: Awake, alert, not completely oriented. No focal deficit. LYMPHATIC: No lymph nodes palpable. SKIN: Intact. LABS: WBC 8.98, hgb 11.8, hct 34.0, plt count 201, sodium 141, potassium 4.1, chloride 103, bibcarb 30, BUN 17, creatinine 0.764, glucose 187. ASSESSMENT: 1. Acute left temporal hemorrhagic infarct 2. New onset diabetes 3. Anemia 4. Hypertension 5. Failure to thrive 6. Recurrent falls PLAN: 1. Will go ahead and CT scan of the head 2. Continue Accu-checks with coverage 3. Family don't want her to be transferred to [facility] for the intracranial bleed. Will go ahead and repeat one more CAT scan of the head today Will follow the patient in daily rounds. TIME SPENT: More than 50 minutes MTDD
--- NOTE | 2016-10-29 14:05 | PN ---
DATE OF SERVICE: 10/28/16 SUBJECTIVE: The patient was admitted with stroke and became hemorrhagic stroke. The patient is more awake. The patient had a shower. The patient's family is in the room and all the questions are answered. Repeat CAT scan yesterday showed the stable bleed and edema. The patient can move the upper extremities and lower extremities. Still has some confusion episodes. Yesterday evening the blood pressure was high and had to give Vasotec IV push which did control the blood pressure. REVIEW OF SYSTEMS: CONSTITUTIONAL: No fever, no chills. HEENT: Normal. ENDOCRINE: No weight gain, no weight loss. CVS: No angina symptoms. No CHF symptoms. No palpitations. No atypical chest pain for CAD. No shortness of breath. No PND, no orthopnea. RESPIRATORY: No cough, no hemoptysis. GI: No nausea, no vomiting. No abdominal pain. : No hematuria. No polyuria. MUSCULOSKELETAL:. No joint swelling. PSYCHIATRIC: Not anxious. No depression. No suicidal thoughts. No homicidal thoughts. SKIN: Intact. No rash. PHYSICAL EXAMINATION: V/S: Blood pressure 164/58, respiratory rate 20, heart rate 87 and temperature 96.7. HEENT: Normocephalic, atraumatic. Mucosa dry. Pallor positive. No icterus. NECK: Supple. No JVD, no carotid bruit. No lymphadenopathy. LUNGS: Decreased and clear to auscultation. No rales or rhonchi. HEART: S1, S2 normal. No S3. No murmur, gallop or regurgitation. ABDOMEN: Soft, nontender. Bowel sounds active. No rigidity. No rebound or guarding. No CVA tenderness. EXTREMITIES: No clubbing, cyanosis or pedal edema. The patient does have sacral decubitus area which are superficial and healing healthy MUSCULOSKELETAL: No joint swelling. NEUROLOGIC: Awake, alert, but not completely oriented. No focal deficit. LYMPHATIC: No lymph nodes palpable. SKIN: Intact. LABS: WBC 9.62, hgb 11.5, hct 32.9, plt count 216, sodium 141, potassium 4.0, chloride 101, bicarb 31, BUN 15, creatinine 0.66, sugar 236. ASSESSMENT: 1. Hemorrhagic stroke with brain edema in the midline shift 2. New onset diabetes 3. Failure to thrive 4. Frequent falls 5. Anemia 6. UTI PLAN: 1. Continue Rocephin 2. Insulin with coverage 3. Lisinopril 4. Metformin 5. IV fluids 6. René Will follow the patient in daily rounds. Poor prognosis been discussed with patient and patient's family in detail. TIME SPENT: More than 30 minutes MTDD
[2016-10-29 14:50] VITALS: BP 124/66; TEMP 97.3
--- NOTE | 2016-11-06 15:17 | PN ---
DATE OF SERVICE: 10/29/16 SUBJECTIVE: The patient admitted with stroke which converted to hemorrhagic stroke. Repeat CT scan showed stable hemorrhage. Physical Therapy evaluated the patient. REVIEW OF SYSTEMS: CONSTITUTIONAL: No fever, no chills. HEENT: Normal. ENDOCRINE: No weight gain, no weight loss. CVS: No angina symptoms. No CHF symptoms. No palpitations. No atypical chest pain for CAD. No shortness of breath. No PND, no orthopnea. RESPIRATORY: No cough, no hemoptysis. GI: No nausea, no vomiting. No abdominal pain. : No hematuria. No polyuria. MUSCULOSKELETAL:. No joint swelling. PSYCHIATRIC: Not anxious. No depression. No suicidal thoughts. No homicidal thoughts. SKIN: Intact. No rash. PHYSICAL EXAMINATION: V/S: BP 124/66, respiratory rate 20, heart rate 77, temperature 97.3. HEENT: Normocephalic, atraumatic. Mucosa dry. Pallor positive. No scleral icterus. NECK: Supple. No JVD, no carotid bruit. No lymphadenopathy. LUNGS: Decreased and clear to auscultation. No rales or rhonchi. HEART: S1, S2 normal. No S3. No murmur, gallop or regurgitation. ABDOMEN: Soft, nontender. Bowel sounds active. No rigidity. No rebound or guarding. No CVA tenderness. EXTREMITIES: No clubbing, cyanosis or pedal edema. MUSCULOSKELETAL: No joint swelling. NEUROLOGIC: Awake, alert. Memory is not intact. No focal deficit. LYMPHATIC: No lymph nodes palpable. SKIN: The patient does have sacral decubitus area which are superficial and healing healthy LABS: White count 9.44, hemoglobin 11.6, hematocrit 33.8, platelet count 229. Sodium 140, potassium 4.0, chloride 100, bicarb 30, BUN 16, creatinine 0.72, glucose 262. ASSESSMENT: 1. LEFT TEMPORAL AND PARIETAL INTRACRANIAL HEMORRHAGE 2. NEW ONSET DIABETES 3. HYPERTENSION 4. FAILURE TO THRIVE 5. FREQUENT FALLS PLAN: 1. Will place the patient in the transitional care unit. 2. PT/OT evaluate and treat. 3. Cardiac diet. 4. Accu-Cheks with coverage. 5. Strict blood pressure control. 6. Fall precautions. TIME SPENT: More than 30 minutes MTDD
--- NOTE | 2016-11-19 11:53 | PN ---
DATE OF SERVICE: 10/26/16 SUBJECTIVE: The patient was admitted to the hospital with acute left sided parietal stroke and new onset diabetes. MRI yesterday showed the left temporal occipital infarct with the mild hemorrhage conversion and local mass effect. At that time Dr. Castro neurosurgeon was contacted. The patient's family refused for the transfer, they didn't want any aggressive management with her. The patient's daughter is the power of solidworks drafter. We did explain about the worse outcome of the situation and they verbalized understanding. The patient is awake and alert and did not have any change of mentation. REVIEW OF SYSTEMS: CONSTITUTIONAL: No fever, no chills. HEENT: Normal. ENDOCRINE: No weight gain, no weight loss. CVS: No angina symptoms. No CHF symptoms. No palpitations. No atypical chest pain for CAD. No shortness of breath. No PND, no orthopnea. RESPIRATORY: No cough, no hemoptysis. GI: No nausea, no vomiting. No abdominal pain. : No hematuria. No polyuria. MUSCULOSKELETAL:. No joint swelling. PSYCHIATRIC: Not anxious. No depression. No suicidal thoughts. No homicidal thoughts. SKIN: Intact. No rash. PHYSICAL EXAMINATION: V/S: Blood pressure 145/78, respiratory rate 20, heart rate 89 and temperature 97.9 with saturation 98. HEENT: Normocephalic, atraumatic. Mucosa dry. Pallor positive. No icterus. NECK: Supple. No JVD, no carotid bruit. No lymphadenopathy. LUNGS: Decreased and Clear to auscultation. No rales or rhonchi. HEART: S1, S2 normal. No S3. No murmur, gallop or regurgitation. ABDOMEN: Soft, nontender. Bowel sounds active. No rigidity. No rebound or guarding. No CVA tenderness. EXTREMITIES: No clubbing, cyanosis or pedal edema. MUSCULOSKELETAL: No joint swelling. NEUROLOGIC: Awake, alert, some memory problems. Not oriented to time, place or person. No focal deficit. LYMPHATIC: No lymph nodes palpable. SKIN: Intact. Does have small opening on the sacral area. LABS: WBC 8.11, hgb 11.6, hct 33.6, plt count 203, sodium 139, potassium 4.0, chloride 102, bicarb 30, BUN 20, creatinine 0.70 and glucose 228. ASSESSMENT: 1. Acute Left temporal occipital infarct with the hemorrhagic conversion and mass effect, patient's family doesn't want any aggressive measures as patient is a DNR. 2. New onset diabetes, type 2. 3. Anemia 4. Hypertension 5. Dyslipidemia 6. Failure to thrive. 7. Neuropathy. 8. Arthrosclerotic vascular disease 9. DJD spine 10. Cholecystectomy 11. Current everyday smoker. PLAN: 1. Diabetic management 2. Telemetry 3. Labs 4. Clearly explained about the worse outcome in review of brain edema which can get worse and patient can not breath. Family verbalized understanding. 5. Patient is DNR at this time. 6. Accu-checks with coverage. 7. Continue to monitor CT scan of the head for the bleed. TIME SPENT: More than 35 minutes MTDD
== END 2016-10-29 15:21 | disposition home or self-care (01) | DRG 65 ==
LOC: ED 12:17 → MEDSURG B 15:33
PROVIDERS: ADMIT Emergency Medicine; ATTEND Emergency Medicine
DX: I62.9 Nontraumatic intracranial hemorrhage, unspecified (principal); N39.0 Urinary tract infection, site not specified; M62.82 Rhabdomyolysis; R27.0 Ataxia, unspecified; I65.22 Occlusion and stenosis of left carotid artery; E86.0 Dehydration; E11.9 Type 2 diabetes mellitus without complications; D64.9 Anemia, unspecified; I10 Essential (primary) hypertension; R41.0 Disorientation, unspecified; R62.7 Adult failure to thrive; R05 Cough; S30.810A Abrasion of lower back and pelvis, initial encounter; B96.89 Other specified bacterial agents as the cause of diseases classified elsewhere; W19.XXXA Unspecified fall, initial encounter; Z16.11 Resistance to penicillins; F17.200 Nicotine dependence, unspecified, uncomplicated; R29.6 Repeated falls; G62.9 Polyneuropathy, unspecified; M47.9 Spondylosis, unspecified; Z79.4 Long term (current) use of insulin; Z79.84 Long term (current) use of oral hypoglycemic drugs
CPT/HCPCS: 36415; 80053; 80061; 81001; 82550; 82553; 82962; 83036; 83605; 84145; 84484; 85025; 87040; 87070; 87081; 87086; 87186; 93005; 93010; 97802; 99223; 99233

== ENCOUNTER 2016-10-29 15:31 | Inpatient (IN) ==
[2016-10-29] MEDS: SODIUM CHLORIDE 1,000 ML IV SCH (18:24)
[2016-10-29] MEDS: HUMULIN R SUBCUT PRN ×2 (18:30→21:49)
[2016-10-29] MEDS: CALMOSEPTINE OINTMENT TP SCH (21:50)
[2016-10-30] MEDS: HUMULIN R SUBCUT PRN ×4 (06:05→20:05)
[2016-10-30] MEDS: ZESTRIL PO SCH (09:25)
[2016-10-30] MEDS: LANTUS SUBCUT SCH (09:26)
[2016-10-30] MEDS: ROCEPHIN 1 GM in SODIUM CHLORIDE 50 ML IV SCH (09:26)
[2016-10-30] MEDS: JANUVIA PO SCH (09:26)
[2016-10-30] MEDS: CALMOSEPTINE OINTMENT TP SCH ×2 (09:32→20:01)
--- NOTE | 2016-10-30 11:39 | RS.PTINEVL ---
Subjective - Patient information Date of Evaluation: 10/30/16 Date of Arrival on Unit: 10/29/16 Admitted From:: In-House Transfer Usual Living Arrangement: Alone Living Arrangement Comments: Lives in her home alone. She reports she cooks for herself. She reports they found her on the floor. Medical History: Diabetes Medical History Comments:: Neuropathy Surgical History: Cholecystectomy Subjective Information/ Patient Comments:: Patient states she does not know is she can walk. States she does not know if her legs will hold her. Patient reports her bottom hurts when returning to sit in her chair. 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 Coordination - Tests Right Heel to [place]: Moderate Deviation Toe Tapping: Moderate Deviation Comments: coordination is impaired for coordinated movements with transfers and ambulation. Balance - Sitting Balance and Reactions Static Sitting Balance: Good Dynamic Sitting Balance: Good - Standing Balance and Reactions Static Standing Balance: Fair Dynamic Standing Balance: Fair Functional Mobility - Transfers Sit to Stand: Min Assist, 2 person assist, Verbal Cues, Tactile Cues Stand to Sit: Min Assist, 2 person assist, Verbal Cues, Tactile Cues - Safety Awareness Safety Awareness: Poor Ambulation - Ambulation Weight Bearing Status: FWB Assistive Device Used: Rolling Walker Distance: 30 feet Assistance needed with Ambulation: Mod Assist, 2 person assist, Verbal Cues, Tactile Cues Gait Deviations: Narrow Based gait, Shuffling gait, Step-to gait, Forward posture, Deviates from path, Lacks step continuity Ambulation Comments: Patient displays anxiety with ambulation. Upon returning to the room, she was leading more with the left foot and almost side stepping into the walker. Verbal and tactile cues given to guide her back to the chair and to turn around completely before sitting down. Factors Affecting Ambulation: Decreased Balance, Weakness, Decreased Coordination, Decreased Safety Treatment time - Time with patient Total treatment time: 18 (mins) Assessment - Assessment Problem List:: Decreased level of function, Requires training/education, Decreased safety/Risk of falls, Weakness Rehab Potential: Good Further Therapy Indicated?: Yes Short Term Goals GOAL #1: Sit to stand with CGA of one. Goal to be met by: 11/02/16 GOAL #2: Stand pivot transfers with Min assist of one and improved safety. Goal to be met by: 11/02/16 GOAL #3: Amb. with RW with min of one and good base of support. Goal to be met by: 11/02/16 [facility] Goals GOAL #1: Bed mobility with CGA of one. Goal to be met by: 11/06/16 GOAL #2: Transfers with supvn with good safety. Goal to be met by: 11/06/16 GOAL #3: Amb. with RW with supvn household distances w/ good safety. Goal to be met by: 11/06/16 Plan Plan of Care: Therapeutic EX, Neuromuscular Re-Educ, Therapeutic Activity, Self- Care/Home Management Frequency of Treatment: 1-2 X day, as tolerated Duration of Treatment: 1 Week Anticipated [facility]charge Dest[facility]
[2016-10-30] MEDS: SODIUM CHLORIDE 1,000 ML IV SCH (13:59)
--- NOTE | 2016-10-30 16:25 | RS.OTINEVL ---
Subjective - Patient information Date of Evaluation: 10/30/16 Date of Arrival on Unit: 10/29/16 Admitted From:: In-House Transfer Usual Living Arrangement: Alone Living Arrangement Comments: Lives in her home alone. She reports she cooks for herself. She reports they found her on the floor. Medical History: Diabetes Medical History Comments:: Neuropathy Surgical History: Cholecystectomy Surgical History Comments:: could not remember Subjective Information/ Patient Comments:: "I want to stay in the bed. 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 Pt reported she used a rolling walker at home. Pt did not cook much. She did take care of herself. Pt was not able to drive. Current Level of Function: Independent Current Equipment Used at Home: Rolling Walker, Pain Assessment - Pain Pain Score: 6 (by face) Pain Location Body Site: coccyx Pain Aggravating Factors: ADL's, Changing Position Pain Alleviating Factors: Medication, Position Change Interventions - Objective Patient Orientation: Person, Place Current Interventions: IV's, Bradley Catheter Interventions - ROM Right Upper Extremity AROM: Slight limitation Left Upper Extremity AROM: WFL's - Strength Right Upper Extremity Strength: Mild Weakness Left Upper Extremity Strength: Normal - Sensation Right Upper Extremity Sensation: Impaired Left Upper Extremity Sensation: Intact/Normal Balance - Sitting Balance Static Sitting Balance: Fair Dynamic Sitting Balance: Fair - Standing Balance Static Standing Balance: Fair Dynamic Standing Balance: Fair ADL Skills - Self Feeding Self Feeding: Min Assist - Grooming Grooming: Mod Assist - Bathing Bathing UE: Mod Assist Bathing LE: Mod Assist - Dressing Dressing UE: Min Assist Dressing LE: Mod Assist - Toilet Management Toileting Management: Max Assist Functional Mobility - Bed Mobility Rolling R/L: Min Assist Scooting: Min Assist Supine to Sit: Min Assist Sit to Supine: Min Assist - Transfers Sit to Stand: Mod Assist Stand to Sit: Mod Assist Stand Pivot Transfers: Mod Assist, 2 person assist - Ambulation Weight Bearing Status: FWB Assistive Device Used: Rolling Walker Assistance needed with Ambulation: Mod Assist - Safety Awareness Safety Awareness: Poor Additional Treatment Performed - Time with patient Total treatment time: 22 (Moderate evaluation) Activities Patient Interests:: Watching Television Patient Education Patient Education: Education of diagnosis, Home Exercise Program, Education of Plan of Care Teaching Recipient: Patient Teaching Methods: Discussion Assessment Problem List:: Decreased level of function, Requires training/education, Weakness, Pain limits previous level of function Rehab Potential: Good Further Therapy Indicated?: Yes Short Term Goals - Goals GOAL 1: Pt to increase coordination of UE to be intact for self feeding. Goal to be met by: 11/08/16 GOAL 2: Pt to complete standing ADL with minimal assistance. Goal to be met by: 11/08/16 GOAL 3: Pt to increase activity tolerance to 15 minutes with rests PRN> Goal to be met by: 11/08/16 [facility] Goals GOAL 1: Pt to increase coordination of UE to be intact for self feeding to be indep Goal to be met by: 11/22/16 GOAL 2: Pt to complete standing ADL with CGA. Goal to be met by: 11/22/16 GOAL 3: Pt to increase activity tolerance to 20 minutes with rests PRN. Goal to be met by: 11/22/16 Plan Plan of Care: Therapeutic EX, Neuromuscular Re-Educ, Therapeutic Activity, Self- Care/Home Management Modalities: Ultrasound, Electrical Stimulation Frequency of Treatment: 1-2 X day, as tolerated Duration of Treatment: 2 Weeks Anticipated Discharge Destination: [facility]
[2016-10-30] MEDS: NORVASC PO SCH (20:00)
[2016-10-31] MEDS: HUMULIN R SUBCUT PRN ×4 (05:31→20:37)
[2016-10-31 07:09] LABS: BASOPHILS # (AUTO) 0.1 K/uL (0-0.2); BASOPHILS % (AUTO) 1.1 % (0.0-3.0); EOSINOPHILS # (AUTO) 0.3 K/ul (0.0-0.7); EOSINOPHILS % (AUTO) 3.7 % (0.0-7.0); HEMATOCRIT 34.7 % (37.0-47.0); HEMOGLOBIN 11.8 g/dl (12.0-16.0); IMMATURE GRANULOCYTE % (AUTO) 2.6 % (0.0-5.0); LYMPHOCYTES % (AUTO) 22.6 (10.0-50.0); MEAN CORPUSCULAR HEMOGLOBIN 30.6 pg (27.0-31.0); MEAN CORPUSCULAR VOLUME 89.9 fl (81.0-99.0); MONOCYTES % (AUTO) 11.8 (0-10); NEUTROPHILS # (AUTO) 5.1 K/ul (2.0-6.9); NEUTROPHILS % (AUTO) 58.2; PLATELET COUNT 221 10^3/uL (140-440); RED BLOOD COUNT 3.86 10^6/ul (4.20-5.40)
[2016-10-31 07:29] LABS: ALBUMIN 2.2 g/dL (3.4-5.0); ALBUMIN/GLOBULIN RATIO 0.63; ANION GAP 14.1; BILIRUBIN,TOTAL 0.4 mg/dL (0.00-1.20); BUN/CREATININE RATIO 18.3; CALCIUM 9.1 mg/dL (8.2-10.2); CREATININE 0.71 mg/dL (0.60-1.30); POTASSIUM 4.1 mmol/L (3.5-5.10); TOTAL PROTEIN 5.7 g/dL (5.8-8.1)
[2016-10-31] MEDS: JANUVIA PO SCH (09:43)
[2016-10-31] MEDS: ROCEPHIN 1 GM in SODIUM CHLORIDE 50 ML IV SCH (09:43)
[2016-10-31] MEDS: ZESTRIL PO SCH (09:43)
[2016-10-31] MEDS: LANTUS SUBCUT SCH (09:44)
[2016-10-31] MEDS: CALMOSEPTINE OINTMENT TP SCH ×2 (09:44→20:39)
[2016-10-31] MEDS: SODIUM CHLORIDE 1,000 ML IV SCH ×2 (14:25→22:15)
[2016-10-31] MEDS: NORVASC PO SCH (20:40)
[2016-11-01 06:02] LABS: BASOPHILS # (AUTO) 0.1 K/uL (0-0.2); BASOPHILS % (AUTO) 1.3 % (0.0-3.0); EOSINOPHILS # (AUTO) 0.3 K/ul (0.0-0.7); EOSINOPHILS % (AUTO) 3.4 % (0.0-7.0); HEMATOCRIT 32.5 % (37.0-47.0); IMMATURE GRANULOCYTE % (AUTO) 2.2 % (0.0-5.0); LYMPHOCYTES # (AUTO) 2.2 K/uL (0.60-3.4); LYMPHOCYTES % (AUTO) 24.7 (10.0-50.0); MEAN CORPUSCULAR HEMOGLOBIN 30.6 pg (27.0-31.0); MEAN CORPUSCULAR HGB CONC 33.8 (31.8-35.4); MEAN CORPUSCULAR VOLUME 90.5 fl (81.0-99.0); MONOCYTES # (AUTO) 1.1 K/uL (0.4-2.0); MONOCYTES % (AUTO) 12.2 (0-10); NEUTROPHILS % (AUTO) 56.2; PLATELET COUNT 239 10^3/uL (140-440); RED BLOOD COUNT 3.59 10^6/ul (4.20-5.40); WHITE BLOOD COUNT 8.99 K/ul (4.6-10.2)
[2016-11-01 06:18] LABS: ALBUMIN 2.3 g/dL (3.4-5.0); ALBUMIN/GLOBULIN RATIO 0.68; ANION GAP 15.1; BILIRUBIN,TOTAL 0.36 mg/dL (0.00-1.20); BUN/CREATININE RATIO 25.71; CREATININE 0.7 mg/dL (0.60-1.30); POTASSIUM 4.1 mmol/L (3.5-5.10); TOTAL PROTEIN 5.7 g/dL (5.8-8.1)
[2016-11-01] MEDS: HUMULIN R SUBCUT PRN ×4 (06:25→21:38)
[2016-11-01] MEDS: ZESTRIL PO SCH (08:33)
[2016-11-01] MEDS: JANUVIA PO SCH (08:33)
[2016-11-01] MEDS: ROCEPHIN 1 GM in SODIUM CHLORIDE 50 ML IV SCH (08:33)
[2016-11-01] MEDS: CALMOSEPTINE OINTMENT TP SCH ×2 (08:34→20:11)
[2016-11-01] MEDS: LANTUS SUBCUT SCH (08:35)
--- NOTE | 2016-11-01 09:54 | CT ---
EXAM: CT of the head without contrast History: New left-sided weakness. Comparison: Head CT 10/27/2016 Technique: Multiplanar CT images through the head were obtained without the administration of IV co ntrast Findings: The visualized paranasal sinuses and mastoid air cells are clear in general. No acute ca lvarial abnormalities. Stable 1.3 cm right parotid mass. Intracranially the ventricular and cisternal spaces are stable. No dominant mass or midline shift. No hydrocephalous. No acute intracranial hemorrhage or abnormal extraaxial fluid collections. Evol ving infarction within the left parietal occipital region. No change in the periventricular and sub cortical white matter hypodensities. Impression: 1. Evolving infarction within the left parietal occipital region. No acute intracranial hemorrhage . 2. Stable right parotid mass could be benign or malignant. Further evaluation recommended.
[2016-11-01] MEDS: NORVASC PO SCH (20:11)
[2016-11-01] MEDS: SODIUM CHLORIDE 1,000 ML IV SCH (22:59)
[2016-11-02] MEDS: SODIUM CHLORIDE 1,000 ML IV SCH (06:26)
[2016-11-02] MEDS: LANTUS SUBCUT SCH (09:25)
[2016-11-02] MEDS: CALMOSEPTINE OINTMENT TP SCH ×2 (09:27→20:34)
[2016-11-02] MEDS: JANUVIA PO SCH (09:27)
[2016-11-02] MEDS: ZESTRIL PO SCH (09:27)
[2016-11-02] MEDS: ROCEPHIN 1 GM in SODIUM CHLORIDE 50 ML IV SCH (09:28)
[2016-11-02] MEDS: HUMULIN R SUBCUT PRN ×3 (12:07→20:31)
--- NOTE | 2016-11-02 13:36 | US ---
EXAM: Ultrasound soft tissue neck HISTORY: Right parotid mass COMPARISON: None available TECHNIQUE: Wall-scale and color Doppler images FINDINGS: A few ovoid circumscribed anechoic masses are seen within the right parotid gland, larges t measuring 1.1 x 1 x 1.1 cm with a thin internal septation. IMPRESSION: Several cystic masses of the right parotid gland. Correlation with neck CT or MRI should be conside red for further characterization.
--- NOTE | 2016-11-02 13:45 | PN ---
DATE OF SERVICE: 10/30/16 SUBJECTIVE: The patient was admitted with the left parietal and occipital hemorrhoid, CT scan showing stable. The patient is in TCU care and physical therapy came and saw the patient and needing some help to ambulate. REVIEW OF SYSTEMS: CONSTITUTIONAL: No fever, no chills. HEENT: Normal. ENDOCRINE: No weight gain, no weight loss. CVS: No angina symptoms. No CHF symptoms. No palpitations. No atypical chest pain for CAD. No shortness of breath. No PND, no orthopnea. RESPIRATORY: No cough, no hemoptysis. GI: No nausea, no vomiting. No abdominal pain. : No hematuria. No polyuria. MUSCULOSKELETAL:. No joint swelling. PSYCHIATRIC: Not anxious. No depression. No suicidal thoughts. No homicidal thoughts. SKIN: Intact. No rash. PHYSICAL EXAMINATION: V/S: Blood pressure 162/80, respiratory 16, heart rate 78, temperature 98.0. HEENT: Normocephalic, atraumatic. Mucosa dry. Pallor positive. No icterus. NECK: Supple. No JVD, no carotid bruit. No lymphadenopathy. LUNGS: Clear to auscultation. No rales or rhonchi. HEART: S1, S2 normal. No S3. No murmur, gallop or regurgitation. ABDOMEN: Soft, nontender. Bowel sounds active. No rigidity. No rebound or guarding. No CVA tenderness. EXTREMITIES: No clubbing, cyanosis or pedal edema. MUSCULOSKELETAL: No joint swelling. NEUROLOGIC: Awake, alert. Memory is no intact. No focal deficit. LYMPHATIC: No lymph nodes palpable. SKIN: Intact. LABS: Not done today; labs from yesterday hgb 1.6, hct 33.8, plt count 229, sodium 140 , potassium 4.0, chloride 100, bicarb 30, BUN 16, creatinine 0.72, glucose 262. ASSESSMENT: 1. Intracranial bleed, left parietal and occipital 2. Diabetes new onset 3. Anemia 4. Failure to thrive 5. Decubitus ulcers PLAN: 1. Fall precaution 2. PT/OT evaluate and treat 3. Accu-checks with coverage 4. Hypoglycemia should be monitored Will follow the patient in daily rounds. TIME SPENT: More than 30 minutes MTDD
[2016-11-02] MEDS: NORVASC PO SCH (20:31)
[2016-11-03] MEDS: SODIUM CHLORIDE 1,000 ML IV SCH (00:29)
[2016-11-03] MEDS: HUMULIN R SUBCUT PRN ×4 (05:50→20:31)
[2016-11-03] MEDS: ROCEPHIN 1 GM in SODIUM CHLORIDE 50 ML IV SCH (08:50)
[2016-11-03] MEDS: JANUVIA PO SCH (08:50)
[2016-11-03] MEDS: ZESTRIL PO SCH (08:50)
[2016-11-03] MEDS: LANTUS SUBCUT SCH (08:50)
[2016-11-03] MEDS: CALMOSEPTINE OINTMENT TP SCH ×2 (08:50→20:33)
[2016-11-03] MEDS: NORVASC PO SCH (20:34)
[2016-11-04 04:41] LABS: BASOPHILS # (AUTO) 0.1 K/uL (0-0.2); BASOPHILS % (AUTO) 0.9 % (0.0-3.0); EOSINOPHILS # (AUTO) 0.3 K/ul (0.0-0.7); EOSINOPHILS % (AUTO) 2.9 % (0.0-7.0); HEMOGLOBIN 11.1 g/dl (12.0-16.0); IMMATURE GRANULOCYTE % (AUTO) 1.2 % (0.0-5.0); LYMPHOCYTES # (AUTO) 2.4 K/uL (0.60-3.4); LYMPHOCYTES % (AUTO) 24.9 (10.0-50.0); MEAN CORPUSCULAR HEMOGLOBIN 30.5 pg (27.0-31.0); MEAN CORPUSCULAR HGB CONC 33.6 (31.8-35.4); MEAN CORPUSCULAR VOLUME 90.7 fl (81.0-99.0); MONOCYTES # (AUTO) 0.9 K/uL (0.4-2.0); MONOCYTES % (AUTO) 9.6 (0-10); NEUTROPHILS # (AUTO) 5.8 K/ul (2.0-6.9); NEUTROPHILS % (AUTO) 60.5; PLATELET COUNT 242 10^3/uL (140-440); RED BLOOD COUNT 3.64 10^6/ul (4.20-5.40); WHITE BLOOD COUNT 9.66 K/ul (4.6-10.2)
[2016-11-04 05:01] LABS: ALBUMIN 2.1 g/dL (3.4-5.0); ALBUMIN/GLOBULIN RATIO 0.55; ANION GAP 12.1; BILIRUBIN,TOTAL 0.27 mg/dL (0.00-1.20); BUN/CREATININE RATIO 23.68; CALCIUM 9.3 mg/dL (8.2-10.2); CREATININE 0.76 mg/dL (0.60-1.30); POTASSIUM 4.1 mmol/L (3.5-5.10); TOTAL PROTEIN 5.9 g/dL (5.8-8.1)
[2016-11-04] MEDS: HUMULIN R SUBCUT PRN ×4 (05:43→20:19)
[2016-11-04] MEDS: LANTUS SUBCUT SCH (08:33)
[2016-11-04] MEDS: ROCEPHIN 1 GM in SODIUM CHLORIDE 50 ML IV SCH (08:33)
[2016-11-04] MEDS: JANUVIA PO SCH (08:34)
[2016-11-04] MEDS: CALMOSEPTINE OINTMENT TP SCH ×2 (08:34→20:33)
[2016-11-04] MEDS: ZESTRIL PO SCH (08:34)
[2016-11-04] MEDS: MORPHINE 2 MG/ML SYRINGE IVP PRN ×2 (12:30→20:39)
[2016-11-04] MEDS: NORVASC PO SCH (20:33)
[2016-11-05] MEDS: MORPHINE 2 MG/ML SYRINGE IVP PRN (06:06)
[2016-11-05] MEDS: HUMULIN R SUBCUT PRN ×4 (06:09→22:17)
--- NOTE | 2016-11-05 08:01 | CT ---
EXAM: CT of the head without contrast. HISTORY: Follow-up. . COMPARISON: 11/01/2016 and 10/24/2016. TECHNIQUE: Contiguous axial images at 5 mm intervals were obtained from the base of the skull to th e vertex the calvarium. No contrast was given. FINDINGS: The CSF containing spaces are diffusely enlarged consistent with atrophy. There are no e xtraaxial fluid collections. There is no evidence of an acute intracranial hemorrhage. There are n o masses or mass effect. Hypodensities are seen in the periventricular white matter consistent with chronic ischemic changes from small vessel disease. There is stable area of hypodensity in the lef t occipital lobe which has appearance of an ischemic infarct. No significant change and no evidence of hemorrhagic transformation. No new areas of ischemia are identified. Carotid artery and verte bral artery calcifications are seen. The osseous structures are normal. The extracranial soft tis sues are otherwise unremarkable. IMPRESSION: 1. Stable left occipital ischemic infarct. 2. Chronic age-related changes.
[2016-11-05] MEDS: ZESTRIL PO SCH (08:43)
[2016-11-05] MEDS: ROCEPHIN 1 GM in SODIUM CHLORIDE 50 ML IV SCH (08:43)
[2016-11-05] MEDS: JANUVIA PO SCH (08:43)
[2016-11-05] MEDS: CALMOSEPTINE OINTMENT TP SCH ×2 (08:43→20:44)
[2016-11-05] MEDS: LANTUS SUBCUT SCH (08:43)
[2016-11-05] MEDS: NORVASC PO SCH (20:44)
[2016-11-06] MEDS: HUMULIN R SUBCUT PRN ×4 (06:06→21:39)
[2016-11-06] MEDS: LANTUS SUBCUT SCH (08:08)
[2016-11-06] MEDS: JANUVIA PO SCH (08:08)
[2016-11-06] MEDS: ZESTRIL PO SCH (08:08)
[2016-11-06] MEDS: CALMOSEPTINE OINTMENT TP SCH ×2 (08:10→20:09)
[2016-11-06] MEDS: ROCEPHIN 1 GM in SODIUM CHLORIDE 50 ML IV SCH (08:12)
--- NOTE | 2016-11-06 15:35 | PN ---
DATE OF SERVICE: 11/01/16 - SWING BED SUBJECTIVE: The patient is admitted with left-sided parietal stroke which was complicated with a hemorrhagic bleed. I talked to the neurologist in [place] and they wanted us to transfer the patient but the family refused transfer and just wants comfort care, no aggressive management on the patient. At that time, the patient was admitted to [facility] for continued care. Repeat CT scans were done. So far the bleed is stable. Neurologically the patient is looking good. REVIEW OF SYSTEMS: CONSTITUTIONAL: No fever, no chills. HEENT: Normal. ENDOCRINE: No weight gain, no weight loss. CVS: No angina symptoms. No CHF symptoms. No palpitations. No atypical chest pain for CAD. No shortness of breath. No PND, no orthopnea. RESPIRATORY: No cough, no hemoptysis. GI: No nausea, no vomiting. No abdominal pain. : No hematuria. No polyuria. MUSCULOSKELETAL:. No joint swelling. PSYCHIATRIC: Not anxious. No depression. No suicidal thoughts. No homicidal thoughts. SKIN: Intact. No rash. PHYSICAL EXAMINATION: V/S: BP 140/80, respiratory rate 20, heart rate 76, temperature 97.6. HEENT: Normocephalic, atraumatic. Mucosa dry. Pallor positive. No scleral icterus. NECK: Supple. No JVD, no carotid bruit. No lymphadenopathy. LUNGS: Decreased and clear to auscultation. No rales or rhonchi. HEART: S1, S2 normal. No S3. No murmur, gallop or regurgitation. ABDOMEN: Soft, nontender. Bowel sounds active. No rigidity. No rebound or guarding. No CVA tenderness. Sacral decubitus ulcers are present, superficial. EXTREMITIES: No clubbing, cyanosis or pedal edema. MUSCULOSKELETAL: No joint swelling. NEUROLOGIC: Alert and oriented to person and place. No focal deficit. LYMPHATIC: No lymph nodes palpable. SKIN: The patient does have sacral decubitus area which are superficial and healing healthy. LABS: White count 8.70, hemoglobin 11.8, hematocrit 34.7, platelet count 221. Sodium 142, potassium 4.1, chloride 103, bicarb 29, BUN 13, creatinine 0.71, glucose 173. ASSESSMENT: 1. INTRACRANIAL BLEED, LEFT PARIETAL AND OCCIPTAL 2. ATAXIA 3. FAILURE TO THRIVE 4. NEW ONSET DIABETES 5. DECUBITUS ULCERS 6. ANEMIA PLAN: 1. Accu-Cheks with coverage 2. PT/OT evaluate and treat 3. Lisinopril 4. IV fluids at 30 mL/hr 5. No anticoagulation with intracranial bleed 6. retirement evaluation TIME SPENT: More than 30 minutes MTDPari
--- NOTE | 2016-11-06 15:42 | PN ---
DATE OF SERVICE: 11/03/16 SUBJECTIVE: The patient is admitted with intracranial hemorrhage. The patient is still ataxic. The latest CT scan still showed the evolving bleed. Otherwise, the patient is participating in physical therapy. No new complaints. Sugars are under control. REVIEW OF SYSTEMS: CONSTITUTIONAL: No fever, no chills. HEENT: Normal. ENDOCRINE: No weight gain, no weight loss. CVS: No angina symptoms. No CHF symptoms. No palpitations. No atypical chest pain for CAD. No shortness of breath. No PND, no orthopnea. RESPIRATORY: No cough, no hemoptysis. GI: No nausea, no vomiting. No abdominal pain. : No hematuria. No polyuria. MUSCULOSKELETAL:. No joint swelling. PSYCHIATRIC: Not anxious. No depression. No suicidal thoughts. No homicidal thoughts. SKIN: Intact. No rash. PHYSICAL EXAMINATION: V/S: BP 155/87, respiratory rate 16, heart rate 85, temperature 97.9. HEENT: Normocephalic, atraumatic. Mucosa dry. NECK: Supple. No JVD, no carotid bruit. No lymphadenopathy. LUNGS: Decreased breath sounds, clear to auscultation. No rales or rhonchi. HEART: S1, S2 normal. No S3. No murmur, gallop or regurgitation. ABDOMEN: Soft, nontender. Bowel sounds active. No rigidity. No rebound or guarding. No CVA tenderness. EXTREMITIES: No clubbing, cyanosis or pedal edema. MUSCULOSKELETAL: No joint swelling. NEUROLOGIC: Awake, alert with some confusion to time, place and person. LYMPHATIC: No lymph nodes palpable. SKIN: The patient does have sacral decubitus area which are superficial and healing healthy LABS: White count 8.99, hemoglobin 11.3, hematocrit 32.5, platelet count 239. Sodium 142, potassium 4.1, chloride 103, bicarb 28, BUN 18, creatinine 00.70. Glucose 183. ASSESSMENT: 1. NEW ONSET DIABETES, NOW CONTROLLED. 2. INTRACRANIAL HEMORRHAGE WITH MILD EDEMA EVOLVING PER LATEST CT SCAN 3. RECURRENT FALLS 4. ATAXIA 5. FAILURE TO THRIVE 6. HYPERTENSION 7. ANEMIA PLAN: 1. Continue Accu-Cheks with coverage. 2. Rocephin for urinary tract infection. 3. Fall precautions. 4. Will get CT scan of the head on Saturday. TIME SPENT: More than 30 minutes MTDD
--- NOTE | 2016-11-06 15:52 | PN ---
DATE OF SERVICE: 11/04/16 SUBJECTIVE: The patient's family is in with her. The patient was up and about with help. Sugars are under control. REVIEW OF SYSTEMS: CONSTITUTIONAL: No fever, no chills. HEENT: Normal. ENDOCRINE: No weight gain, no weight loss. CVS: No angina symptoms. No CHF symptoms. No palpitations. No atypical chest pain for CAD. No shortness of breath. No PND, no orthopnea. RESPIRATORY: No cough, no hemoptysis. GI: No nausea, no vomiting. No abdominal pain. : No hematuria. No polyuria. MUSCULOSKELETAL:. No joint swelling. Complains of some hip pain from lying in the bed. PSYCHIATRIC: Not anxious. No depression. No suicidal thoughts. No homicidal thoughts. SKIN: Intact. No rash. PHYSICAL EXAMINATION: V/S: BP 142/68, respiratory rate 14, heart rate 79, temperature 97.1. Saturation 97% on room air. HEENT: Normocephalic, atraumatic. Mucosa dry, pallor positive. No scleral icterus. NECK: Supple. No JVD, no carotid bruit. No lymphadenopathy. LUNGS: Decreased entry, clear to auscultation. No rales or rhonchi. HEART: S1, S2 normal. No S3. No murmur, gallop or regurgitation. ABDOMEN: Soft, nontender. Bowel sounds active. No rigidity. No rebound or guarding. No CVA tenderness. EXTREMITIES: No clubbing, cyanosis or pedal edema. MUSCULOSKELETAL: No joint swelling. NEUROLOGIC: Awake, alert, not oriented to time, place or person. No focal deficit. LYMPHATIC: No lymph nodes palpable. SKIN: Sacral decubitus ulcers, superficial, Stage 1 to 2; multiple are present. LABS: WBC 9.66, RBC 3.64, Hgb 11.1, Hct 33.0, platelet count 242. Sodium 142, potassium 4.1, chloride 104, carbon dioxide 30, BUN 18, creatinine 0.76. Glucose 242, calcium 9.3, AST 17, ALT 20, Alkaline phosphatase 97. ASSESSMENT: 1. LEFT PARIETAL AND OCCIPITAL BLEED 2. NEW ONSET DIABETES 3. ANEMIA 4. RIGHT HIP PAIN 5. HYPERTENSION PLAN: 1. Morphine 2 mg twice a day 2. Accu-Cheks with coverage 3. Daily I & O's 4. CT scan of head without in the a.m. for evaluation of the brain bleed 5. Will follow with the patient in daily rounds TIME SPENT: More than 35 minutes OTIS
[2016-11-06] MEDS: NORVASC PO SCH (20:09)
[2016-11-07 05:09] LABS: BASOPHILS # (AUTO) 0.1 K/uL (0-0.2); BASOPHILS % (AUTO) 1.1 % (0.0-3.0); EOSINOPHILS # (AUTO) 0.3 K/ul (0.0-0.7); EOSINOPHILS % (AUTO) 3.1 % (0.0-7.0); HEMATOCRIT 33.7 % (37.0-47.0); HEMOGLOBIN 11.5 g/dl (12.0-16.0); IMMATURE GRANULOCYTE % (AUTO) 1.2 % (0.0-5.0); LYMPHOCYTES % (AUTO) 24.2 (10.0-50.0); MEAN CORPUSCULAR HEMOGLOBIN 30.7 pg (27.0-31.0); MEAN CORPUSCULAR HGB CONC 34.1 (31.8-35.4); MEAN CORPUSCULAR VOLUME 90.1 fl (81.0-99.0); MONOCYTES # (AUTO) 0.9 K/uL (0.4-2.0); MONOCYTES % (AUTO) 10.7 (0-10); NEUTROPHILS # (AUTO) 4.9 K/ul (2.0-6.9); NEUTROPHILS % (AUTO) 59.7; PLATELET COUNT 258 10^3/uL (140-440); RED BLOOD COUNT 3.74 10^6/ul (4.20-5.40); WHITE BLOOD COUNT 8.28 K/ul (4.6-10.2)
[2016-11-07 05:35] LABS: ALBUMIN 2.5 g/dL (3.4-5.0); ALBUMIN/GLOBULIN RATIO 0.64; BILIRUBIN,TOTAL 0.46 mg/dL (0.00-1.20); BUN/CREATININE RATIO 30.98; CALCIUM 9.4 mg/dL (8.2-10.2); CREATININE 0.71 mg/dL (0.60-1.30); TOTAL PROTEIN 6.4 g/dL (5.8-8.1)
[2016-11-07 05:49] VITALS: BP 148/78; TEMP 97.6
--- NOTE | 2016-11-07 06:51 | PN ---
DATE OF SERVICE: SUBJECTIVE: The patient is admitted with left ischemic stroke converted to the hemorrhagic stroke and parietal and occipital brain bleed was stable. Last CT scan showed evolving hemorrhage. Today CT scan results are pending. REVIEW OF SYSTEMS: CONSTITUTIONAL: No fever, no chills. HEENT: Normal. ENDOCRINE: No weight gain, no weight loss. CVS: No angina symptoms. No CHF symptoms. No palpitations. No atypical chest pain for CAD. No shortness of breath. No PND, no orthopnea. RESPIRATORY: No cough, no hemoptysis. GI: No nausea, no vomiting. No abdominal pain. : No hematuria. No polyuria. MUSCULOSKELETAL:. No joint swelling. PSYCHIATRIC: Not anxious. No depression. No suicidal thoughts. No homicidal thoughts. SKIN: Intact. No rash. PHYSICAL EXAMINATION: V/S: BP 127/73, respiratory rate 16, heart rate 68, temperature 97.1. HEENT: Normocephalic, atraumatic. Mucosa dry. Pallor positive. No icterus. NECK: Supple. No JVD, no carotid bruit. No lymphadenopathy. LUNGS: Clear to auscultation. No rales or rhonchi. HEART: S1, S2 normal. No S3. No murmur, gallop or regurgitation. ABDOMEN: Soft, nontender. Bowel sounds active. No rigidity. No rebound or guarding. No CVA tenderness. EXTREMITIES: No clubbing, cyanosis or pedal edema. MUSCULOSKELETAL: Grossly intact. NEUROLOGIC: Awake, alert, not oriented to time, place or person otherwise. LYMPHATIC: No lymph nodes palpable. SKIN: The patient has a superficial decubitus ulcer Stage 1 to 2; multiple are present which are healthy and healing. LABS: White count 9.6, hemoglobin 11.1, hematocrit 33.0, platelets 242. Sodium 142, potassium 4.1, chloride 104, bicarb 30, BUN 18, creatinine 0.76. ASSESSMENT: 1. LEFT PARIETAL AND OCCIPTAL BLEED, ISCHEMIC STROKE CONVERTED TO HEMORRHAGIC 2. NEW ONSET DIABETES 3. ANEMIA 4. HYPERTENSION 5. DYSLIPIDEMIA PLAN: 1. Physical therapy and occupational therapy. 2. Morphine for pain. 3. Accu-Cheks with coverage. 4. Rocephin for the UTI. TIME SPENT: More than 30 minutes MTDD
[2016-11-07] MEDS ORDERED: LANTUS SUBCUT SCH (08:54)
[2016-11-07] MEDS: JANUVIA PO SCH (09:45)
[2016-11-07] MEDS: ROCEPHIN 1 GM in SODIUM CHLORIDE 50 ML IV SCH (09:45)
[2016-11-07] MEDS: ZESTRIL PO SCH (09:46)
[2016-11-07] MEDS: CALMOSEPTINE OINTMENT TP SCH (09:47)
--- NOTE | 2016-11-07 14:25 | PN ---
DATE OF SERVICE: 11/06/16 SUBJECTIVE: The patient was admitted with left CVA that turned into the brain bleed, been stable. The patient's family refused any aggressive management. The patient has a DNR. The patient been in the physical therapy doing well. REVIEW OF SYSTEMS: CONSTITUTIONAL: No fever, no chills. HEENT: Normal. ENDOCRINE: No weight gain, no weight loss. CVS: No angina symptoms. No CHF symptoms. No palpitations. No atypical chest pain for CAD. No shortness of breath. No PND, no orthopnea. RESPIRATORY: No cough, no hemoptysis. GI: No nausea, no vomiting. No abdominal pain. : No hematuria. No polyuria. MUSCULOSKELETAL:. No joint swelling. PSYCHIATRIC: Not anxious. No depression. No suicidal thoughts. No homicidal thoughts. SKIN: Intact. No rash. PHYSICAL EXAMINATION: V/S: Blood pressure 132/79, respiratory rate 16, heart rate 74, temperature 97.2 with saturation 96% on the room air. HEENT: Normocephalic, atraumatic. Mucosa dry. Pallor positive. No icterus. NECK: Supple. No JVD, no carotid bruit. No lymphadenopathy. LUNGS: Bilateral entry is decreased and clear to auscultation. No rales or rhonchi. HEART: S1, S2 normal. No S3. No murmur, gallop or regurgitation. ABDOMEN: Soft, nontender. Bowel sounds active. No rigidity. No rebound or guarding. No CVA tenderness. EXTREMITIES: No clubbing, cyanosis or pedal edema. MUSCULOSKELETAL: No joint swelling. NEUROLOGIC: Awake, alert, oriented times three. No focal deficit. LYMPHATIC: No lymph nodes palpable. SKIN: Intact. LABS: WBC 9.66, hgb 11.1, hct 33.0, plt count 242, sodium 142, potassium 4.1, chloride 104, bicarb 30, BUN 18, creatinine 0.76, glucose 242 ASSESSMENT: 1. Left parietal and occipital intracranial bleed 2. Diabetes 3. Anemia 4. Hypertension 5. Ataxia PLAN: 1. CAT of the head which was done two days ago was not read properly. We are asking the radiology department to read it again. 2. Continue the physical and occupational therapy 3. USP placement and evaluation TIME SPENT: More than 35 minutes MTDD
--- NOTE | 2016-11-20 13:05 | DS ---
DATE OF SERVICE: 11/07/16 FINAL DIAGNOSIS: 1. Left acute CVA, left sided ischemic complicated with Hemorrhage stroke no neurological deficit other than ataxia 2. Diabetes, new onset 3. Ataxia 4. Anemia 5. Hypertension 6. Left internal carotid artery stenosis per MRI 7. UTI DISCHARGE INSTRUCTIONS: Discharge the patient to the [facility] on 11/09/16 for the MRI. Wound Care may apply Calmoseptine to the clean buttock twice daily. Labs CBC and CMP within one week. Accu-checks with coverage MEDICATIONS AT DISCHARGE: Zantac 150mg PO QDAC Norvasc 5mg PO daily Zestril 40mg PO daily Calmoseptine Ointment 1 application TP twice a day Lantus 14 unit SUBCUT bedtime Januvia 50mg PO daily Humulin R 0-100 unit subcut ACHS PRN NEW PRESCRIPTIONS: Lantus insulin 14 units Subcut daily Zestril 40mg PO daily Januvia 50mg PO daily DIET INSTRUCTIONS: ADA and Low carb ACTIVITY: May participate in the Retirement activity. PT/OT please evaluation and treat. SMOKING: Current everyday smoker DISEASE SPECIFIC EDUCATION: Diabetes Intracranial bleed and risk been discussed Fall and intracranial bleed been discussed. HOSPITAL COURSE: Sayda Woods who is a 76 year old female who used to live by herself at home found by the workers that patient was on the floor. At that time the patient was brought to the Emergency Room and seen by Dr. Howard. She was found to have sugars of 350 and left sided parietal and occipital stoke. At that time the patient is admitted to the hospital and if bleeding was suspected they want us to do an MRI of the brain. MRI of the brain was done which did show the intracranial bleed with mild shift and edema. At that time Dr. Barton was talked into and Mick was courteous enough he accepted the patient and he wanted the patient to be under the care of the hospitalist as the patient does also have high blood pressure and diabetes. I talked to the hospitalist and the patient was all ready to go but the patient's family decided not to sent her and have any aggressive managements done. The patient has a DNR order and the patient's daughter is power of finance attorney. They have been discussed about not to do any aggressive measures on the patient. At that time the patient was initially admitted to [facility] as patient was still needing some help. The patient was put in the TCU care the physical therapy and occupational therapy came and helped the patient. For diabetes the patient was started on the insulin and Lantus 14 units with Accu-checks coverage and Lisinopril for the blood pressure. Meanwhile the patient was up and about and was able to walk and eat good. She some imbalance issues and some confusion issues otherwise no neurological deficit. She was able to eat by herself and needing minimal help. She did not have any falls. Repeat CAT scans of the brain did show the stable stroke and no evolving bleed. At that time the patient is being [facility] to the [facility] and we will be ordering the MRI of the brain in followup. MRI of the brain as followup as outpatient. The patient will be followed at the [facility] by me. TIME SPENT: MORE THAN 65 MINUTES OTIS
== END 2016-11-07 16:55 | DRG 64 ==
LOC: MEDSURG B 15:31
PROVIDERS: ADMIT Emergency Medicine; ATTEND Emergency Medicine
DX: I63.8 Other cerebral infarction (principal); I61.8 Other nontraumatic intracerebral hemorrhage; N39.0 Urinary tract infection, site not specified; R27.0 Ataxia, unspecified; L89.151 Pressure ulcer of sacral region, stage 1; L89.152 Pressure ulcer of sacral region, stage 2; E11.8 Type 2 diabetes mellitus with unspecified complications; D64.9 Anemia, unspecified; I10 Essential (primary) hypertension; I65.22 Occlusion and stenosis of left carotid artery; R62.7 Adult failure to thrive; M25.551 Pain in right hip; Z79.4 Long term (current) use of insulin; Z79.899 Other long term (current) drug therapy
CPT/HCPCS: 36415; 80053; 82962; 85025; 97802

== ENCOUNTER 2016-11-12 09:14 | Outpatient (CLI) ==
--- NOTE | 2016-11-12 11:25 | MRI ---
EXAM: MRI brain without IV contrast. DATE: 11/12/2016. HISTORY: Hemorrhagic cerebrovascular accident. TECHNIQUE: Sagittal T1W, axial T2W, axial FLAIR, axial T1W, axial DWI, and coronal T2W GRE sequences of the brain were obtained using 1.2 Krysten magnet. No IV contrast. COMPARISON: CT head 05 November 2016. MRI brain 25 October 2016. Neck ultrasound 02 November 2016. FINDINGS: Small cavum septum pellucidum (normal variation) is noted. The ventricles, cisterns, and subarachnoid spaces are commensurately enlarged due to involutional change. No midline shift, hernia tion or abnormal extra-axial fluid collection is apparent. Prominent Virchow-Cade spaces are observe d at the inferior aspect of each basal ganglia. Old lacunar infarcts are identified in the supra asp ect of the right putamen and in the left frontal galdamez radiata. No new hemorrhage or neoplasm is id entified. Small, confluent rim of T2W/FLAIR hyperintensity is observed in the white matter abutting each lateral ventricle. Multiple 3 mm to 3 cm T2W/FLAIR bright foci are scattered within the galdamez radiata, centrum semiovale and subcortical white matter bilaterally. Region of DWI / T2W/FLAIR hyper intensity involving the left hippocampus, left lateral aspect of the splenium corpus callosum, medial aspect of the left occipital lobe and left thalamus demonstrate slightly lax DWI brightness and last s edema compared to October 2016. The galvan - white matter differentiation is otherwise normal. Sever al 2-5 mm, T2W/FLAIR bright foci are scattered within the rhea. The 7th/8th cranial nerve complexes, cerebellopontine angles, brainstem, and visible cervical spinal cord are normal. There is no cerebe llar tonsillar ectopia. The pituitary gland is normal in size and signal. Corpus callosum is normal in size and configuration. Right vertebral artery is dominant. Vertebrobasilar system is mildly to rtuous. Flow voids are present in the major intracranial arteries and in the dural venous sinuses. No aneurysm, AVM or dural venous sinus thrombosis is apparent. Appearance in the lens of each eye byrne ggests prior cataract surgery. No orbit abnormality is identified. A few right and small number lef t mastoid air cells have T2W bright, T1W intermediate signal. Left middle turbinate large crystal bul losa is observed, with adjacent rightward nasoseptal deviation. There is no acute sinusitis. No cer vical lymphadenopathy is detected. No calvarial neoplasm or acute fracture is evident. Small posteri or disc/osteophyte complexes are seen at C2-3 and C3-4. Superficial lobe right parotid gland T2W brig ht, T1W intermediate signal lesion (9.7 x 9.5 x 12 mm) is unchanged from October 2016. IMPRESSIONS: 1. Persistent, but slightly less DWI ischemic signal in the left hippocampus, left lateral margin sp lenium corpus callosum, and left occipital lobe compared to 25 October 2016. An underlying tumor (gli tanya) with ischemia or encephalitis/cerebritis are less likely considerations. Because luxury perfusi on would likely be seen on the MRI at this stage of an ischemic infarct, contrast-enhanced MRI may or may not be helpful in further evaluation right now. However, if symptoms do not resolve or improve, contrast-enhanced study would be warranted. 2. Subacute, fading infarct in the left thalamus. 3. Old infarcts in the right putamen and left frontal lobe. 4. No new infarct, new hemorrhage, or hydrocephalus. 6. Mild cerebral and cerebellar atrophy. 7. Minor right and mild left mastoid air cell disease. 8. Right parotid lesion (unchanged from October 2016).
== END 2016-11-12 09:15 | disposition home or self-care (01) ==
LOC: RAD 09:14
PROVIDERS: ATTEND Emergency Medicine
DX: I62.9 Nontraumatic intracranial hemorrhage, unspecified (principal)

== ENCOUNTER 2017-04-08 19:32 | Emergency (ER) ==
[2017-04-08] MEDS ORDERED: URO-JET MUCOUSMEMB STA (19:37)
[2017-04-08 19:52] VITALS: TEMP 100.1; BMI 34.3
--- NOTE | 2017-04-08 20:01 | CT ---
EXAM: CT head without contrast 04/08/2017. Sagittal and coronal reformatted images obtained HISTORY: Fever and headache COMPARISON: 11/12/2016 FINDINGS: There is no evidence of intracranial hemorrhage. The midline is maintained. There is no h ydrocephalus. Generalized atrophy and chronic small vessel ischemic changes. Chronic post-infarctiv e encephalomalacia of the left occipital lobe. There are additional small scattered lacunar infarcts which also appears stable. No cerebellar tonsillar ectopia. Evaluation of the calvarium shows no fr acture. The mastoid air cells are normally pneumatized. IMPRESSION: No acute intracranial abnormality. Stable chronic findings as described above. Mucosal thickening and air fluid levels throughout the paranasal sinuses suggestive of acute sinusiti s.
--- NOTE | 2017-04-08 20:17 | CT ---
EXAM: CT THORAX HISTORY: Cough, fever. TECHNIQUE: CT thorax without intravenous contrast. Multiplanar images presented. Coronal and sagit nathen re-formations. COMPARISON: None FINDINGS: Normal heart size. Mild atherosclerotic disease. Large calcified lymph nodes in the subcarinal spac e consistent with old granulomatous inflammation. Lungs are clear. Normal vascularity. No pneumothorax or pleural fluid. The bones reveal osteophytic spurring of the thoracic spine and. IMPRESSION: 1. No acute cardiopulmonary process. 2. Old granulomatous disease. 3. Atherosclerosis.
--- NOTE | 2017-04-08 20:29 | CT ---
Exam: CT scan of the abdomen pelvis without contrast. Date: 04/08/2017. Comparison: 10/23/2016. HISTORY: Fever. TECHNIQUE: Helical scan of the abdomen pelvis was performed without contrast. FINDINGS: Granulomatous calcifications are present in the lung bases and blebs are also present in t he right lower lobe. Multilevel degenerative changes are present in the lower thoracic spine and lum bar spine. Degenerative changes are also present in the hips bilaterally. The spleen and liver have a uniform attenuation. Cholecystectomy is noted. 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 The stomach, pancreas and adrenal glands are normal. The kidn eys have a normal attenuation. There is a multilobulated contour to the right kidney that may repres ent a parenchymal scarring. There is 0.1 cm nonobstructing calculi in the midpole region of the righ t kidney. There is no hydronephrosis. No retroperitoneal adenopathy is present. Aorta has peripher al calcification and does not exceed 3 cm. The small bowel is normal. The colon, pelvic sidewall and bladder are normal. There is no free pelvic fluid. The uterus, rectum and inguinal regions are nor mal. Impression: No acute findings in the abdomen or pelvis. Nonobstructing right nephrolithiasis. Cholecystectomy. Multilobulated contour to the right kidney which may represent areas of parenchymal scarring.
--- NOTE | 2017-04-08 21:27 | ED.PDOC ---
General ED Provider: Dr. AISSATOU HERNANDES-ER Chief Complaint: Non-specific Complaint Stated Complaint: i was nervous but i feel better now--had a hicks and felt anxious but is feeling bewtter now Time Seen by Physician: 19:45 Mode of Arrival: Stretcher Information Source: Patient, Family, [facility] Exam Limitations: No limitations Primary Care [facility] Nursing and Triage Documentation Reviewed and Agree: Yes Reviewed sepsis parameters & appropriate labs ordered?: Yes System Inflammatory Response Syndrome: Not Applicable Sepsis Protocol: For patient's 13 years and over: Temp is 96.8 and below OR 101 and greater Pulse >90 BPM Resp >20/minute Acutely Altered Mental Status Are patient's symptoms suggestive of a new infection, such as: -Pneumonia -Skin, Soft Tissue -Endocarditis -UTI -Bone, Joint Infection -Implantable Device -Acute Abdominal Infection -Wound Infection -Meningitis -Blood Stream Catheter Infection -Unknown Psychological Complaint Exam - Psychiatric Complaint/Exam Patient Complains Of: Present: Other Onset/Duration: 30 min Symptoms Are: Still present Timing: Intermittent Initial Severity: Mild Character: Present: Anxious Aggravating: Reports: None Associated Signs And Symptoms: Reports: Sleep disturbance. Denies: Hostile, Confused, Hallucinating, Paranoid behavior, Appetite change Completed Suicide Risk Factors: None Patient In Custody Of Police: No Social Withdrawal Present: No Social Isolation Present: No Prior Suicide Attempt: No Injury From Prior Suicide Attempt: No Related Surgical History: Reports: None Patient Uncooperative For Exam: No Mood: Present: Anxious Appearance: Present: Clean Thought Process: Present: Logical Insight: Present: Good Memory: Intact Judgement: Normal Danger To Others: No Differential Diagnoses: Anxiety Review of Systems - Review Of Systems Constitutional: Reports: No symptoms Eyes: Reports: No symptoms Ears, Nose, Mouth, Throat: Reports: No symptoms Respiratory: Reports: No symptoms Cardiac: Reports: No symptoms GI: Reports: No symptoms : Reports: No symptoms Musculoskeletal: Reports: No symptoms Skin: Reports: No symptoms Neurological: Reports: Anxiety Endocrine: Reports: No symptoms Hematologic/Lymphatic: Reports: No symptoms All Other Systems: Reviewed and Negative Past Medical History - Past Medical History Previously Healthy: Yes Endocrine: Reports: None Cardiovascular: Reports: None Respiratory: Reports: None Hematological: Reports: None Gastrointestinal: Reports: None Genitourinary: Reports: None Neuro/Psych: Reports: None Musculoskeletal: Reports: None Cancer: Reports: None Last Menstrual Period: unknown - Surgical History General Surgical History: Reports: None - Family History Family History: Reports: None - Social History Smoking Status: Current every day smoker Hx Substance Use: No Alcohol Screening: None Lives: With family - Immunizations Tetanus Shot up to Date: (unknown) Physical Exam - Physical Exam Appearance: Well-appearing Eyes: JUAN, EOMI, Conjunctiva clear ENT: Ears normal, Nose normal, Oropharynx normal Neck: Supple Respiratory: Airway patent Cardiovascular: RRR, Pulses normal, No rub, No murmur GI/: Soft, Nontender, No masses, Bowel sounds normal, No Organomegaly Musculoskeletal: Normal strength, ROM intact, No edema, No calf tenderness Skin: Warm, Dry, Normal color Neurological: Sensation intact, Alert, Oriented Psychiatric: Affect appropriate, Mood appropriate, Anxious Re-Evaluation - Re-Evaluation Time of Re-Evaluation: 21:27 Status: Improved (feelng better --bp 140/80) Vital Signs Stable: Yes Pain Level: 0 Appearance: NAD Lungs: Clear Skin: Warm and Dry Neuro: Alert and Oriented X3 CV: RRR Critical Care Note - Critical Care Note Total Time (mins): 0 Course - Course Hematology/Chemistry: 04/08/17 20:00 04/08/17 20:00 Orders, Labs, Meds: Lab Review 04/08/17 04/08/17 04/08/17 20:00 20:00 20:00 WBC 9.07 RBC 3.56 L Hgb 11.0 L Hct 31.6 L MCV 88.8 MCH 30.9 MCHC 34.8 RDW Coeff of Yocasta 12.5 Plt Count 204 Immature Gran % (Auto) 1.0 Neut % (Auto) 62.3 Lymph % (Auto) 19.4 Anson % (Auto) 13.2 H Eos % (Auto) 3.3 Baso % (Auto) 0.8 Immature Gran # (Auto) 0.1 Neut # 5.7 Lymph # 1.8 Anson # 1.2 Eos # 0.3 Baso # 0.1 Sodium 140 Potassium 4.1 Chloride 102 Carbon Dioxide 29 Anion Gap 13.1 BUN 22 H Creatinine 1.14 Estimated GFR (MDRD) 46.00 BUN/Creatinine Ratio 19.29 Glucose 191 H Lactic Acid 9.8 Calcium 9.4 Total Bilirubin 0.6 AST 11 L ALT 13 Alkaline Phosphatase 82 Total Protein 7.3 Albumin 3.2 L Globulin 4.1 Albumin/Globulin Ratio 0.78 Procalcitonin Urine Color Urine Clarity Urine pH Ur Specific [place] Urine Protein Urine Glucose (UA) Urine Ketones Urine Blood Urine Nitrite Urine Bilirubin Urine Urobilinogen Ur Leukocyte Esterase Urine Microscopic WBC Ur Squamous Epith Cells Influenza A (Rapid) Influenza B (Rapid) 04/08/17 04/08/17 04/08/17 20:00 20:05 20:45 WBC RBC Hgb Hct MCV MCH MCHC RDW Coeff of Yocasta Plt Count Immature Gran % (Auto) Neut % (Auto) Lymph % (Auto) Anson % (Auto) Eos % (Auto) Baso % (Auto) Immature Gran # (Auto) Neut # Lymph # Anson # Eos # Baso # Sodium Potassium Chloride Carbon Dioxide Anion Gap BUN Creatinine Estimated GFR (MDRD) BUN/Creatinine Ratio Glucose Lactic Acid Calcium Total Bilirubin AST ALT Alkaline Phosphatase Total Protein Albumin Globulin Albumin/Globulin Ratio Procalcitonin < 0.05 Urine Color Yellow Urine Clarity Clear Urine pH 7.0 Ur Specific [place] 1.010 Urine Protein 2+ Urine Glucose (UA) Trace Urine Ketones Negative Urine Blood Negative Urine Nitrite Negative Urine Bilirubin Negative Urine Urobilinogen 0.2 Ur Leukocyte Esterase Negative Urine Microscopic WBC 0-2 Ur Squamous Epith Cells 2-5 Influenza A (Rapid) Negative by naat Influenza B (Rapid) Negative by naat Orders Category Date Time Status ABG DRAW REQUEST Stat CARDIO 04/08/17 19:35 Ordered Patient Safety Attendant [ED STATISTICAL FINANCIAL ANALYST APPLIED] .ONCE EMERGENCY 04/08/17 19:37 Active Bradley [ED CATHETER INSERTION AND CARE] .ONCE EMERGENCY 04/08/17 19:37 Active ABG Stat LAB 04/08/17 19:35 Ordered BLOOD CULTURE (ED ONLY) Stat LAB 04/08/17 20:00 Received CBC W/ AUTO DIFF Stat LAB 04/08/17 20:00 Completed COMPREHENSIVE METABOLIC PANEL Stat LAB 04/08/17 20:00 Completed FLU A/B MOLECULAR Stat LAB 04/08/17 20:05 Completed LACTIC ACID Stat LAB 04/08/17 20:00 Completed MOLECULAR GROUP A STREP Stat LAB 04/08/17 20:05 Completed PROCALCITONIN Stat LAB 04/08/17 20:00 Completed URINALYSIS C & S IF INDICATED Stat LAB 04/08/17 20:45 Completed Lidocaine HCl [Uro-Jet] MEDS 04/08/17 19:37 Discontinued 10 ml [id number] ONCE STA CT ABDOMEN/PELVIS WO CONTRAST Stat RADS 04/08/17 19:[address] CHEST W/O CONTRAST Stat RADS 04/08/17 19:[address] HEAD W/O CONTRAST Stat RADS 04/08/17 19:36 Completed Medications Discontinued Medications Generic Name Dose Route Start Last Admin Trade Name Freq PRN Reason Stop Dose Admin Lidocaine HCl 10 ml 04/08/17 19:37 04/08/17 21:02 Uro-Jet [id number] 04/08/17 19:38 10 ml ONCE STA Administration Vital Signs: Temp Pulse Resp BP Pulse Ox 04/08/17 19:37 100.1 F H 100 H 20 174/94 H 97 Departure - Departure Time of Disposition: 21:28 Disposition: TRANSFER SNF Discharge Problem: Anxiety Instructions: Anxiety (ED) Condition: Good Pt referred to PMD for follow-up: Yes IPMP verified?: No Additional Instructions: f/u wtih attending at snf Allergies/Adverse Reactions: Allergies No Known Allergies Allergy (Unverified 04/08/17 20:14) Home Medications: Ambulatory Orders Amlodipine Besylate [Norvasc] 5 mg PO DAILY 10/24/16 Ranitidine HCl [Zantac] 150 mg PO QDAC 10/24/16 Lisinopril [Zestril] 40 mg PO DAILY #30 tablet 11/07/16 Acetaminophen 325 mg PO Q4HR PRN 04/08/17 Insulin Glargine,Hum.rec.anlog [Lantus] 25 unit SUBCUT BEDTIME 04/08/17 Insulin Regular, Human [Humulin R] 0 - 100 unit SUBCUT ACHS PRN 04/08/17 Linagliptin [Tradjenta] 5 mg PO DAILY 04/08/17 Disposition Discussed With: Patient
[2017-04-08 22:05] VITALS: BP 134/72
== END 2017-04-08 22:27 ==
LOC: ED 19:32
DX: F41.9 Anxiety disorder, unspecified (principal); F17.210 Nicotine dependence, cigarettes, uncomplicated; R51 Headache; I10 Essential (primary) hypertension; R00.0 Tachycardia, unspecified; R73.9 Hyperglycemia, unspecified; Z79.899 Other long term (current) drug therapy
CPT/HCPCS: 36415; 80053; 81001; 83605; 84145; 85025; 87040; 87502; 87651; 99284

== ENCOUNTER 2017-07-24 18:58 | Inpatient (IN) | payer OTHER ==
--- NOTE | 2017-07-24 19:49 | ED.PDOC ---
General ED Provider: Dr. PAVEL MONTENEGRO Chief Complaint: Headache Stated Complaint: Patient been c/o pain in the back of the head. no LOC, patient sent from the [place], they did not tell about the falls, but patient does c/ o she is been falling and injured head multiple times. Time Seen by Physician: 19:47 Mode of Arrival: Ambulance Information Source: Patient, EMT Primary Care Provider: PAVEL [facility] Nursing and Triage Documentation Reviewed and Agree: Yes Reviewed sepsis parameters & appropriate labs ordered?: Yes System Inflammatory Response Syndrome: Not Applicable Sepsis Protocol: For patient's 13 years and over: Temp is 96.8 and below OR 101 and greater Pulse >90 BPM Resp >20/minute Acutely Altered Mental Status Are patient's symptoms suggestive of a new infection, such as: -Pneumonia -Skin, Soft Tissue -Endocarditis -UTI -Bone, Joint Infection -Implantable Device -Acute Abdominal Infection -Wound Infection -Meningitis -Blood Stream Catheter Infection -Unknown Neurological Complaint Exam - Headache Complaint/Exam Onset: Gradual Symptoms Are: Still present Timing: Constant Episodes Lasting: Days Worst Headache Ever: No Initial Severity: Moderate Current Severity: Moderate Location: Occipital Character: Reports: Dull, Throbbing Aggravating: Reports: None Alleviating: Reports: None Associated Signs and Symptoms: Denies: Dizziness, Seizure, Nausea, Vomiting, Sinus pressure, Fever, Neck pain, Neck stiffness, Decreased LOC, Visual changes Related History: Reports: Similar episode Related Surgical History: Reports: None SAH Risk Factors: Reports: Hypertension Meningitis Risk Factors: Reports: None SDH Risk Factors: Reports: None Temporal Arteritis Risk Factors: Reports: None Normal Head CT Within Last 12 Months: No Temporal Artery Tenderness: Present: None Sinus Tenderness: Present: None TMJ Tenderness: Present: None Meningeal Signs Positive: No ROM Limited In: No Limitiations Focal Weakness: Present: None Focal Sensory Loss: Present: None Gait: Normal Nystagmus Present: No Gag Reflex Present: Yes [id number]: Normal Findings Romberg Test Positive: No Babinski Sign: Negative Right, Negative Left Differential Diagnoses: Subdural Hematoma, Subarachnoid Hemorrhage Review of Systems - Review Of Systems Constitutional: Reports: No symptoms Eyes: Reports: No symptoms Ears, Nose, Mouth, Throat: Reports: No symptoms Respiratory: Reports: No symptoms Cardiac: Reports: No symptoms GI: Reports: No symptoms : Reports: No symptoms Musculoskeletal: Reports: No symptoms Skin: Reports: No symptoms Neurological: Reports: Headache Endocrine: Reports: No symptoms Hematologic/Lymphatic: Reports: No symptoms All Other Systems: Reviewed and Negative Past Medical History - Past Medical History Previously Healthy: Yes Endocrine: Reports: DM 2, Hypothyroid, Dyslipidemia Cardiovascular: Reports: Hypertension Respiratory: Reports: None Hematological: Reports: Anemia Gastrointestinal: Reports: GERD Genitourinary: Reports: None Neuro/Psych: Reports: None, Other (h/o bleed in brain) Musculoskeletal: Reports: Arthritis, Back Pain Cancer: Reports: None Last Menstrual Period: none - Surgical History General Surgical History: Reports: None - Family History Family History: Reports: None - Social History Smoking Status: Former smoker Hx Substance Use: No Alcohol Screening: None Physical Exam - Physical Exam Appearance: Well-appearing, Obese Eyes: EOMI, Conjunctiva clear ENT: Ears normal, Nose normal, Oropharynx normal Respiratory: Airway patent, Breath sounds clear, Breath sounds equal, Respirations nonlabored Cardiovascular: RRR, Pulses normal, No rub, No murmur GI/: Soft, Nontender, No masses, Bowel sounds normal, No Organomegaly Musculoskeletal: Normal strength, ROM intact, No edema, No calf tenderness Skin: Warm, Dry, Normal color Neurological: Sensation intact, Motor intact, Reflexes intact, Cranial nerves intact, Alert, Oriented Psychiatric: Affect appropriate, Mood appropriate Interpretation - Radiology Interpretation Radiology Interpretation By: Radiologist Radiology Results: Negative Exam Interpreted: CT Scan Critical Care Note - Critical Care Note Total Time (mins): 30 Course - Course Orders, Labs, Meds: Orders Category Date Time Status EKG-(ED ONLY) Stat CARDIO 07/24/17 19:47 Ordered Saline Lock [ED IV/MEDIPORT/POWERPORT] .ONCE EMERGENCY 07/24/17 19:47 Ordered B-TYPE NATRIURETIC PEPTIDE Stat LAB 07/24/17 19:47 Ordered CBC W/ AUTO DIFF Stat LAB 07/24/17 19:44 Ordered COMPREHENSIVE METABOLIC PANEL Stat LAB 07/24/17 19:44 Ordered CREATINE KINASE Stat LAB 07/24/17 19:46 Ordered PT WITH INR Stat LAB 07/24/17 19:44 Ordered TROPONIN I Stat LAB 07/24/17 19:47 Ordered 0.9 % Sodium Chloride [Saline Flush] MEDS 07/24/17 19:47 Ordered 1 syr IVF PRN PRN CT HEAD W/O CONTRAST Stat RADS 07/24/17 19:15 Taken Vital Signs: Temp Pulse Resp BP Pulse Ox 07/24/17 19:15 170/106 H 07/24/17 18:58 98.4 F 99 H 20 180/87 H 98 Departure - Departure Time of Disposition: 19:54 Disposition: ADMITTED INPATIENT Discharge Problem: Hypertension, uncontrolled Head injury Qualifiers: Encounter type: initial encounter Qualified Code(s): S09.90XA - Unspecified injury of head, initial encounter Instructions: Head Injury (ED) Condition: Stable Pt referred to PMD for follow-up: No IPMP verified?: No Allergies/Adverse Reactions: Allergies No Known Allergies Allergy (Verified 07/24/17 19:05) Home Medications: Ambulatory Orders Amlodipine Besylate [Norvasc] 5 mg PO DAILY 10/24/16 Ranitidine HCl [Zantac] 150 mg PO QDAC 10/24/16 Lisinopril [Zestril] 40 mg PO DAILY #30 tablet 11/07/16 Acetaminophen 650 mg PO Q4HR PRN 04/08/17 Insulin Glargine,Hum.rec.anlog [Lantus] 30 unit SUBCUT BEDTIME 04/08/17 Insulin Regular, Human [Humulin R] 0 - 100 unit SUBCUT ACHS PRN 04/08/17 Linagliptin [Tradjenta] 5 mg PO DAILY 04/08/17 Acetaminophen 650 mg PO Q4H PRN 07/24/17 Atorvastatin Calcium [Lipitor] 20 mg PO BEDTIME 07/24/17 Ferrous Sulfate 325 mg PO BID 07/24/17 Disposition Discussed With: Patient, Family
--- NOTE | 2017-07-24 19:49 | CT ---
EXAM: Noncontrast CT head. HISTORY: Headache. Right-sided weakness. COMPARISON: 04/08/17 TECHNIQUE: Noncontrast CT head was performed with axial, coronal and sagittal reconstructions. Findings: There is a chronic hypodensity seen at the medial left parietal - occipital lobe region unchanged fro m previous CTs suggesting chronic encephalomalacia. There is otherwise preservation of the galvan-white differential without evidence of definitive large v essel acute cortical infarct identified. No acute intracranial hemorrhage is identified. No midline shift is identified. No definitive intracranial mass lesion is identified within technical limitation s of noncontrast CT. The basal cisterns are patent. There is mild ventricular enlargement suggesting diffuse brain parenchymal volume loss. Bilateral white matter hypodensities are present. Limited freeman luation of the skull demonstrates no visualized lucent skull acute fractures or destructive osseous l esions identified within the visualized portions of the skull. Partially visualized paranasal sinuse s and mastoid air cells appear relatively clear in the visualized regions. Impression: 1. No acute intracranial hemorrhage or definitive large vessel acute cortical infarct identified. MR I brain evaluation would more sensitively assess for acute infarct if there is clinical concern. 2. Findings suggesting chronic encephalomalacia involving medial left parietal - occipital lobe again seen. 3. Diffuse brain parenchymal volume loss likely age related. 4. Bilateral white matter hypodensities which are not specicific but can be seen with chronic microva scular ischemic disease.
[2017-07-24] MEDS ORDERED: CATAPRES PO STA (20:36)
[2017-07-24] MEDS: SODIUM CHLORIDE 1,000 ML IV SCH (22:11)
[2017-07-24 22:22] VITALS: BMI 33.3
[2017-07-25] MEDS ORDERED: TRANDATE IVP PRN ×2 (01:33→07:30)
[2017-07-25] MEDS: ZANTAC PO SCH (05:41)
[2017-07-25] MEDS ORDERED: HUMULIN R SUBCUT SCH (06:30)
[2017-07-25] MEDS: ROCEPHIN 1 GM in SODIUM CHLORIDE 50 ML IV SCH ×2 (08:20→09:41)
[2017-07-25] MEDS: TRADJENTA PO SCH (08:21)
[2017-07-25] MEDS: ZESTRIL PO SCH (08:21)
[2017-07-25] MEDS: FERROUS SULFATE PO SCH ×2 (08:21→20:50)
[2017-07-25] MEDS: NORVASC PO SCH (08:21)
[2017-07-25] MEDS: DIFLUCAN PO SCH (08:21)
[2017-07-25] MEDS ORDERED: NON-FORMULARY MEDICATION (Ferrous Sulfate [Ferrous Sulfate] 325 MG) PO SCH (09:00)
[2017-07-25] MEDS: HUMULIN R SUBCUT PRN ×3 (12:16→20:51)
--- NOTE | 2017-07-25 16:18 | RS.PTINEVL ---
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 States she has a headache. - Level of function Prior to this admission, the patient could do the following:: Independent Selfcare, Independent ADL's, Independent Ambulation, Perform Quality Lead/ Cooking, Drive, Participated in Social Activities Outside home, Volunteer/Work Current Level of Function: Partially Dependent Interventions - Objective Patient Orientation: Person Observation: Patient presents sitting up in chair at bedside with chair alarm on. Range of Motion - ROM Right Upper Extremity AROM: WFL's Left Upper Extremity AROM: WFL's Right Lower Extremity AROM: WFL's Left Lower Extremity AROM: WFL's Muscle Strength - Muscle Strength Comments:: Right LE strength at least 3+ to 4-/5 throughout. Left LE at least 4 /5 throughout. Sensation - Sensation Comments: Reports intact sensation to light touch Balance - Sitting Balance and Reactions Static Sitting Balance: Fair (+) Dynamic Sitting Balance: Fair (+) - Standing Balance and Reactions Static Standing Balance: Fair (+) Dynamic Standing Balance: Fair Functional Mobility - Bed Mobility Comments:: Patient presents sitting up in chair. - Transfers Sit to Stand: Mod Assist, 2 person assist, Verbal Cues, Tactile Cues Stand to Sit: Mod Assist, 2 person assist, Verbal Cues, Tactile Cues Stand Pivot Transfers: Min Assist, 2 person assist, Verbal Cues, Tactile Cues Comments:: Patient given cues for safety for sit<>stand transfers. - Safety Awareness Safety Awareness: Poor ANDREW INDEX SCORE: NA Ambulation - Ambulation Weight Bearing Status: FWB Assistive Device Used: Rolling Walker Distance: 10-12 feet Assistance needed with Ambulation: Mod Assist, 2 person assist, Verbal Cues, Tactile Cues Quality of Ambulation: With patient's first few steps, she demonstrates appearance of knees buckling, but then self corrects and this does not happen again while ambulating. She is then able to transfer stand to sit with control and assistance. Gait Deviations: Narrow Based gait, Shuffling gait, Forward posture, Short stride, Lacks step continuity Factors Affecting Ambulation: Decreased Balance, Pain (headache pain), Weakness , Decreased Safety, Limited Endurance Treatment time - Time with patient Total treatment time: 18 (mins) Assessment - Assessment Problem List:: Decreased level of function, Requires training/education, Decreased safety/Risk of falls, Weakness Rehab Potential: Fair Further Therapy Indicated?: Yes Evaluation Complexity: HISTORY: Medium (Hx CVA, Diabetes, Alzheimers), EXAM OF BODY SYSTEMS: Medium (LE weakness, decline amb, balance, safety), CLINICAL PRESENTATION: Medium, CLINICAL DECISION MAKING: Medium Short Term Goals GOAL #1: Sit to stand with min of one. Goal to be met by: 07/28/17 GOAL #2: Stand pivot transfers with Min assist of one and improved safety. Goal to be met by: 07/28/17 GOAL #3: Amb. with RW with min of one and good base of support. Goal to be met by: 07/28/17 Anesthesia Assistant Goals GOAL #1: Bed mobility with CGA of one. Goal to be met by: 07/30/17 GOAL #2: Transfers with CGA of one and with good safety. Goal to be met by: 07/30/17 GOAL #3: Amb. with RW with CGA 100 feet w/ good safety. Goal to be met by: 07/30/17 Plan Plan of Care: Therapeutic EX, Therapeutic Activity Frequency of Treatment: 1-2 X day, as tolerated Duration of Treatment: 3-5 days Anticipated Discharge Destination: Anesthesia Assistant Care Facility (return to [place]) Treatment Diagnosis (ICD 10 Codes): General weakness M62.81. Difficulty walking R26.2 Has the Physician been added for Co-signature?: Yes
[2017-07-25] MEDS: LIPITOR PO SCH (20:50)
[2017-07-25] MEDS: LANTUS SUBCUT SCH (20:51)
--- NOTE | 2017-07-25 23:50 | MRI ---
EXAM: Brain MRI with and without contrast. HISTORY: Weakness. COMPARISON: Head CT 07/24/2017 and brain MRI 11/12/2016. TECHNIQUE: Multiplanar, multisequence MR images were acquired of the brain before and after administ ration of intravenous contrast. FINDINGS: The midline structures are central and the craniocervical junction is unremarkable. The v entricles, sulci and cisterns are enlarged consistent with mild diffuse cerebral volume loss. There is a small normal variant cavum septum pellucidum. There are no abnormal extra-axial fluid collectio ns. There is a moderately large chronic medial left occipitotemporal lobe infarct with gyriform hyperinte nse T1 signal laminar necrosis and minor dark gradient echo signal compatible with micro calcificatio n. There is minor gyriform diffusion restriction with mildly bright B 1000, isointense to mildly hyp ointense ADC signal along the medial margin of the chronic infarct which was present on the previous MRI. This is most consistent with a small amount of persistent ischemia or technical artifact. No n ew areas of acute infarction are present. There is a chronic lacuna in the left posterior external ca psule and there is a dilated perivascular space or chronic lacuna in the left thalamus. Hazy patchy T2 hyperintensities are present in the centrum semiovale bilaterally and in the deep white matter tra cts and juxta cortical white matter. Several faint T2 / FLAIR hyperintensities are present in the po ns. This is consistent with moderate supratentorial and mild pontine leukomalacia. After administra tion of gadolinium, no enhancing lesions are identified. The corpus callosum has minor upward bowing likely related to the lateral ventriculomegaly. The pituitary gland is low normal in size with homo geneous contrast enhancement. The infundibulum is midline. There are no intraorbital masses. There has been previous lens surgery bilaterally. Mild rightward nasal septal deviation is present. There is a left middle turbinate crystal bullosa. Paranasal sinus es are clear. There is mild mucosal thickening in a few inferior mastoid air cells bilaterally, more so on the right. There is a well-circumscribed ovoid 9.5 mm AP by 11.1 mm TX by 1.2 cm CC low T1, br ight T2 signal cystic lesion in the superficial right parotid gland. This may represent a cyst or no naggressive lesion such as a cystadenoma. This is incompletely characterized on the current study. Flow voids are present in the major intracranial arteries and dural venous sinuses. There is upper c ervical hypertrophic facet arthropathy and prominent ventral spondylosis. Pannus formation is presen t involving the transverse ligament which effaces the ventral thecal sac at C1 without central canal stenosis. IMPRESSION: 1. Moderate chronic left occipital temporal lobe infarct with minor peripheral persistent ischemia m edially versus technical artifact. 2. No intracranial mass, hydrocephalus or acute cerebral infarct. 3. Mild diffuse cerebral volume loss and moderate extensive supratentorial and mild pontine chronic ischemic small vessel disease. 4. Chronic lacuna posterior left external capsule. 5. Incompletely characterized well circumscribed ovoid 9.5 mm x 11.1 mm x 1.2 cm cystic lesion super ficial right parotid gland. Clinical considerations include a cyst or nonaggressive lesion such as a cystadenoma. More aggressive lesions are deemed less likely. Neck CT with contrast including the parotid glands may be helpful to further define the anatomy.
[2017-07-26] MEDS: TYLENOL PO PRN (00:59)
[2017-07-26] MEDS: SODIUM CHLORIDE 1,000 ML IV SCH ×2 (05:16→05:47)
[2017-07-26] MEDS: ZANTAC PO SCH (05:45)
[2017-07-26] MEDS: ROCEPHIN 1 GM in SODIUM CHLORIDE 50 ML IV SCH (09:02)
[2017-07-26] MEDS: TORADOL IVP PRN (09:02)
[2017-07-26] MEDS: FERROUS SULFATE PO SCH ×2 (09:03→20:35)
[2017-07-26] MEDS: TRADJENTA PO SCH (09:03)
[2017-07-26] MEDS: DIFLUCAN PO SCH (09:03)
[2017-07-26] MEDS: NORVASC PO SCH (09:03)
[2017-07-26] MEDS: ZESTRIL PO SCH (09:03)
[2017-07-26] MEDS: LOPRESSOR PO SCH ×2 (09:03→20:35)
--- NOTE | 2017-07-26 10:03 | RS.OTINEVL ---
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 Pt complains of right leg pain during her evaluation. "My leg is killing me." - Level of function Prior to this admission, the patient could do the following:: Independent Selfcare, Independent ADL's, Independent Ambulation, Perform Break Out Man/ Cooking, Drive, Participated in Social Activities Outside home, Volunteer/Work Abilities prior to this admission: Pt living at [facility] senior living facility. Pt walks with a RW and uses a WC. Pt requires assistance for self care management. Current Level of Function: Partially Dependent Current Equipment Used at Home: Pt denies equipment except a WC. Pain Assessment - Pain Pain Score: 8 Side: right Pain Location Body Site: Calf Pain Aggravating Factors: Standing, Sitting, Walking Pain Alleviating Factors: Medication, Sitting, Lying Supine Interventions - Objective Patient Orientation: Person Current Interventions: IV's, Telemetry Observation: Pt has BUE tremors at rest. Pt is weak and requires 2 people to transfer moderate assistance. Pt complains of RLE pain. Pt has mild edema of RLE. Interventions - ROM Right Upper Extremity AROM: Slight limitation Left Upper Extremity AROM: Moderate limitation - Strength Right Upper Extremity Strength: Mild Weakness Left Upper Extremity Strength: Mild Weakness - Sensation Right Upper Extremity Sensation: Intact/Normal Left Upper Extremity Sensation: Intact/Normal Balance - Sitting Balance Static Sitting Balance: Good Dynamic Sitting Balance: Good - Standing Balance Static Standing Balance: Poor Dynamic Standing Balance: Poor ADL Skills - Self Feeding Self Feeding: Independent - Grooming Grooming: Min Assist - Toilet Management Toileting Management: Mod Assist, 2 person assist Functional Mobility - Bed Mobility Rolling R/L: CGA, Min Assist Scooting: Min Assist Supine to Sit: Min Assist Sit to Supine: Min Assist - Transfers Sit to Stand: Mod Assist, 2 person assist Stand to Sit: Mod Assist, 2 person assist Stand Pivot Transfers: Mod Assist, 2 person assist - Ambulation Assistance needed with Ambulation: Mod Assist, 2 person assist - Safety Awareness Safety Awareness: Fair ANDREW INDEX SCORE: . Additional Treatment Performed - Time with patient Total treatment time: 19 Activities Patient Interests:: Watching Television Patient Education Patient Education: Education of diagnosis, Education of Plan of Care Teaching Recipient: Patient, Family Teaching Methods: Discussion, Demonstration Assessment Rehab Potential: Good Further Therapy Indicated?: Yes Evaluation Complexity: HISTORY: Medium, EXAM OF BODY SYSTEMS: Medium, CLINICAL DECISION MAKING: Medium Short Term Goals - Goals GOAL 1: Pt to increase BUE strength to 4/5. Goal to be met by: 07/31/17 GOAL 2: Pt to complete standing ADL with minimal assistance. Goal to be met by: 07/31/17 GOAL 3: Pt to increase activity tolerance to 15 minutes with rests PRN. Goal to be met by: 07/31/17 Nursing Home Goals GOAL 1: Pt to increase BUE strength to 4/5+. Goal to be met by: 08/02/17 GOAL 2: Pt to complete standing ADL with CGA. Goal to be met by: 08/02/17 GOAL 3: Pt to increase activity tolerance to 20 minutes with rests PRN. Goal to be met by: 08/02/17 Plan Plan of Care: Therapeutic EX, Neuromuscular Re-Educ, Therapeutic Activity, Self- Care/Home Management Frequency of Treatment: 1-2 X day, as tolerated Duration of Treatment: 1 Week Anticipated Discharge Destination: [facility] Treatment Diagnosis (ICD 10 Codes): M62.81 muscle weakness, Z74.1 Need for assistance with personal care, Z74.0 Decreased mobility. Has the Physician been added for Co-signature?: Yes
--- NOTE | 2017-07-26 13:14 | PN ---
DATE OF SERVICE: 07/25/17 SUBJECTIVE: The patient was admitted from the emergency room for uncontrolled hypertension and headache. Blood sugars been elevated; 497. Headache is better. Blood pressure is today 146/83. She is able to get up and walk, needs some help. REVIEW OF SYSTEMS: CONSTITUTIONAL: No fever, no chills. HEENT: Normal. ENDOCRINE: No weight gain, no weight loss. CVS: No angina symptoms. No CHF symptoms. No palpitations. No atypical chest pain for CAD. No shortness of breath. No PND, no orthopnea. RESPIRATORY: No cough, no hemoptysis. GI: No nausea, no vomiting. No abdominal pain. : No hematuria. No polyuria. MUSCULOSKELETAL: No joint swelling. PSYCHIATRIC: Not anxious. No depression. No suicidal thoughts. No homicidal thoughts. SKIN: Intact. No rash. PHYSICAL EXAMINATION: V/S: Blood pressure 146/83, respiratory rate 18, heart rate 80, temperature 98.6 with saturation 100% with 2 liters. HEENT: Normocephalic, atraumatic. Mucosa dry. NECK: Supple. No JVD, no carotid bruit. No lymphadenopathy. LUNGS: Clear to auscultation. No rales or rhonchi. HEART: S1, S2 normal. No S3. No murmur, gallop or regurgitation. ABDOMEN: Soft, nontender. Bowel sounds active. No rigidity. No rebound or guarding. No CVA tenderness. EXTREMITIES: No cyanosis, clubbing or pedal edema. MUSCULOSKELETAL: No joint swelling. NEUROLOGIC: Awake, alert, oriented times three. No focal deficit. LYMPHATIC: No lymph nodes palpable. SKIN: Intact. LABS: Sodium 143, potassium 4.3, chloride 106, bicarb 26, BUN 23, creatinine 0.98, glucose 297. WBC 9.70, hgb 10.2, hct 30.9, plt count 190. ASSESSMENT: 1. Uncontrolled hypertension with headache 2. Question mass in the occipital area per CAT scan, we are going to do MRI 3. Uncontrolled diabetes mellitus 4. Urinary tract infection 5. History of intracranial bleed PLAN: 1. MRI of the brain 2. Rocephin 1 gram daily 3. Accu-checks with coverage 4. Daily I&O's 5. IV fluids at 40ml per hour TIME SPENT: More than 35 minutes MTDD
[2017-07-26] MEDS: HUMULIN R SUBCUT PRN ×3 (13:28→20:37)
--- NOTE | 2017-07-26 15:26 | DI ---
EXAM: RIGHT KNEE. HISTORY: Knee pain. FINDINGS: Right knee four view. No comparison. General bone density is mildly decreased. There is moderately severe tricompartment osteoarthritis. Moderate bony spurring. There is no fracture or j oint dislocation. IMPRESSION: Tricompartment osteoarthritis, moderately severe.
--- NOTE | 2017-07-26 16:00 | US ---
Exam: Wall-scale and color ultrasonographic evaluation of the right parotid gland. Comparison: Parotid nodules seen on MRI of the brain performed 11/12/2016. Ultrasound of the parotid performed 11/02/2016. Reason for exam: Rule out parotid mass. FINDINGS: The parotid gland measures approximately 5.8 x 2.7 x 4.5 cm. There are several nodular structures seen within the parotid gland. There is a complex appearing nodule measuring approximately 1.2 x 0.8 x 1.1 cm with internal vascular ity. There is a cystic lesion measuring approximately 0.6 x 0.5 x 0.6 cm without interval vascularity. There is heterogeneous appearing tissue versus a solid nodule measuring approximately 1.2 x 0.9 x 1.6 cm. Impression: There are multiple cystic, solid, and complex appearing nodules in the parotid gland. These findings appear similar when compared to the ultrasound performed on 11/02/2016. If clinical concern exists for carotid catheter allergy, MRI may be performed for further characterization.
[2017-07-26] MEDS: LIPITOR PO SCH (20:35)
[2017-07-26] MEDS: LANTUS SUBCUT SCH (20:36)
[2017-07-27] MEDS: ZANTAC PO SCH (06:14)
[2017-07-27] MEDS: HUMULIN R SUBCUT PRN ×4 (07:10→21:31)
[2017-07-27] MEDS: DIFLUCAN PO SCH (08:02)
[2017-07-27] MEDS: ZESTRIL PO SCH (08:02)
[2017-07-27] MEDS: FERROUS SULFATE PO SCH ×2 (08:03→21:31)
[2017-07-27] MEDS: TRADJENTA PO SCH (08:03)
[2017-07-27] MEDS: NORVASC PO SCH (08:03)
[2017-07-27] MEDS: LOPRESSOR PO SCH ×2 (08:03→21:31)
[2017-07-27] MEDS: ROCEPHIN 1 GM in SODIUM CHLORIDE 50 ML IV SCH ×2 (08:03→10:35)
[2017-07-27] MEDS: SODIUM CHLORIDE 1,000 ML IV SCH ×2 (14:43→22:00)
[2017-07-27] MEDS: LIPITOR PO SCH (21:31)
[2017-07-27] MEDS: LANTUS SUBCUT SCH (21:31)
[2017-07-28] MEDS: TORADOL IVP PRN ×2 (01:31→21:04)
[2017-07-28] MEDS: ZANTAC PO SCH (05:53)
[2017-07-28] MEDS: ROCEPHIN 1 GM in SODIUM CHLORIDE 50 ML IV SCH (08:36)
[2017-07-28] MEDS: LOPRESSOR PO SCH ×2 (08:37→20:54)
[2017-07-28] MEDS: NORVASC PO SCH (08:37)
[2017-07-28] MEDS: ZESTRIL PO SCH (08:37)
[2017-07-28] MEDS: TRADJENTA PO SCH (08:37)
[2017-07-28] MEDS: FERROUS SULFATE PO SCH ×2 (08:37→20:54)
[2017-07-28] MEDS: HUMULIN R SUBCUT PRN ×3 (11:05→20:54)
[2017-07-28] MEDS: LIPITOR PO SCH (20:54)
[2017-07-28] MEDS: LANTUS SUBCUT SCH (20:55)
[2017-07-28] MEDS: SODIUM CHLORIDE 1,000 ML IV SCH (23:28)
[2017-07-29] MEDS: TYLENOL PO PRN (05:45)
[2017-07-29] MEDS: ZANTAC PO SCH (05:45)
[2017-07-29] MEDS: TRADJENTA PO SCH (08:55)
[2017-07-29] MEDS: ZESTRIL PO SCH (08:55)
[2017-07-29] MEDS: FERROUS SULFATE PO SCH ×2 (08:55→20:30)
[2017-07-29] MEDS: ROCEPHIN 1 GM in SODIUM CHLORIDE 50 ML IV SCH (08:55)
[2017-07-29] MEDS: LOPRESSOR PO SCH ×2 (08:56→20:30)
[2017-07-29] MEDS: NORVASC PO SCH (08:56)
[2017-07-29] MEDS: HUMULIN R SUBCUT PRN ×3 (11:11→20:27)
[2017-07-29] MEDS: LANTUS SUBCUT SCH (20:29)
[2017-07-29] MEDS: LIPITOR PO SCH (20:30)
[2017-07-29] MEDS: TORADOL IVP PRN (22:27)
[2017-07-29] MEDS: SODIUM CHLORIDE 1,000 ML IV SCH (22:28)
[2017-07-30] MEDS: ZANTAC PO SCH (05:34)
[2017-07-30] MEDS: SODIUM CHLORIDE 1,000 ML IV SCH (05:58)
[2017-07-30] MEDS: TORADOL IVP PRN ×2 (06:11→17:36)
[2017-07-30] MEDS: NORVASC PO SCH (08:46)
[2017-07-30] MEDS: FERROUS SULFATE PO SCH ×2 (08:46→22:04)
[2017-07-30] MEDS: TRADJENTA PO SCH (08:46)
[2017-07-30] MEDS: LOPRESSOR PO SCH ×2 (08:46→22:04)
[2017-07-30] MEDS: ZESTRIL PO SCH (08:46)
[2017-07-30] MEDS: ROCEPHIN 1 GM in SODIUM CHLORIDE 50 ML IV SCH (08:46)
[2017-07-30] MEDS: HUMULIN R SUBCUT PRN ×3 (11:29→22:05)
[2017-07-30] MEDS: LIPITOR PO SCH (22:04)
[2017-07-30] MEDS: LANTUS SUBCUT SCH (22:04)
[2017-07-31] MEDS: TORADOL IVP PRN (03:19)
[2017-07-31] MEDS: ZANTAC PO SCH (05:47)
[2017-07-31] MEDS: NORVASC PO SCH (08:42)
[2017-07-31] MEDS: TRADJENTA PO SCH (08:42)
[2017-07-31] MEDS: LOPRESSOR PO SCH (08:42)
[2017-07-31] MEDS: ZESTRIL PO SCH (08:42)
[2017-07-31] MEDS: FERROUS SULFATE PO SCH (08:42)
[2017-07-31] MEDS: ROCEPHIN 1 GM in SODIUM CHLORIDE 50 ML IV SCH (08:42)
--- NOTE | 2017-07-31 08:45 | PN ---
DATE OF SERVICE: 07/26/17 SUBJECTIVE: The patient was admitted with uncontrolled hypertension and headache. CT head is negative for the bleed. Complains about the knee pain. REVIEW OF SYSTEMS: CONSTITUTIONAL: No fever, no chills. HEENT: Normal. ENDOCRINE: No weight gain, no weight loss. CVS: No angina symptoms. No CHF symptoms. No palpitations. No atypical chest pain for CAD. No shortness of breath. No PND, no orthopnea. RESPIRATORY: No cough, no hemoptysis. GI: No nausea, no vomiting. No abdominal pain. : No hematuria. No polyuria. MUSCULOSKELETAL: No joint swelling. PSYCHIATRIC: Not anxious. No depression. No suicidal thoughts. No homicidal thoughts. SKIN: Intact. No rash. PHYSICAL EXAMINATION: V/S: Blood pressure 150/72, respiratory rate 20, heart rate 78, temperature 98.8 and saturation is 99%. HEENT: Normocephalic, atraumatic. Mucosa dry. Pallor positive. No icterus. NECK: Supple. No JVD, no carotid bruit. No lymphadenopathy. LUNGS: Clear to auscultation. No rales or rhonchi. HEART: S1, S2 normal. No S3. No murmur, gallop or regurgitation. ABDOMEN: Soft, nontender. Bowel sounds active. No rigidity. No rebound or guarding. No CVA tenderness. EXTREMITIES: No cyanosis, clubbing or pedal edema. Left knee range of motion is decreased, swelling is present. MUSCULOSKELETAL: No joint swelling. NEUROLOGIC: Awake, alert, oriented times three. No focal deficit. LYMPHATIC: No lymph nodes palpable. SKIN: Intact. LABS: WBC 8.73, hgb 10.4, hct 31.0, plt count 192, sodium 141, potassium 4.0, chloride 106, bicarb 25, BUN 20, creatinine 0.88. ASSESSMENT: 1. Status post uncontrolled hypertension 2. Diabetes, uncontrolled, this is better 3. UTI 4. History of intracranial bleed 5. History of osteoarthritis 6. DJD spine PLAN: 1. MRI of the brain 2. Carotid ultrasound 3. X-ray of the knee 4. Accu-check with the coverage 5. Continue Rocephin 1 gram TIME SPENT: More than 35 minutes MTDD
--- NOTE | 2017-07-31 08:57 | PN ---
DATE OF SERVICE: 07/27/17 SUBJECTIVE: The patient's knee pain is slightly improved. The patient is up and about and walks some with the help. REVIEW OF SYSTEMS: CONSTITUTIONAL: No fever, no chills. HEENT: Normal. ENDOCRINE: No weight gain, no weight loss. CVS: No angina symptoms. No CHF symptoms. No palpitations. No atypical chest pain for CAD. No shortness of breath. No PND, no orthopnea. RESPIRATORY: No cough, no hemoptysis. GI: No nausea, no vomiting. No abdominal pain. : No hematuria. No polyuria. MUSCULOSKELETAL: No joint swelling. PSYCHIATRIC: Not anxious. No depression. No suicidal thoughts. No homicidal thoughts. SKIN: Intact. No rash. PHYSICAL EXAMINATION: V/S: Blood pressure 131/74, respiratory rate 20, heart rate 76, temperature 98.8 with saturation 98%. HEENT: Normocephalic, atraumatic. Mucosa dry. Pallor positive. No icterus. NECK: Supple. No JVD, no carotid bruit. No lymphadenopathy. LUNGS: Clear to auscultation. No rales or rhonchi. HEART: S1, S2 normal. No S3. No murmur, gallop or regurgitation. ABDOMEN: Soft, nontender. Bowel sounds active. No rigidity. No rebound or guarding. No CVA tenderness. EXTREMITIES: No cyanosis, clubbing. 1+ edema. Range of motion is decrease. MUSCULOSKELETAL: No joint swelling. NEUROLOGIC: Awake, alert, oriented times three. No focal deficit. LYMPHATIC: No lymph nodes palpable. SKIN: Intact. LABS: Sodium 141, potassium 4.0, chloride 106, bicarb 25, BUN 20, creatinine 0.88, glucose 195, WBC 8.73, hgb 10.4, hct 31.0, plt count 192. ASSESSMENT: 1. Uncontrolled hypertension which is better 2. Uncontrolled diabetes improved 3. Urinary tract infection 4. Headache, MRI showing the old stroke, no mass, parotid mass stable size. 5. Left knee moderate osteoarthritis 6. Diabetes 7. Hypertension 8. Dyslipidemia PLAN: 1. Continue Rocephin 2. Daily I&O's 3. Out of bed to chair 4. Activity as tolerated. TIME SPENT: More than 35 minutes MTDD
[2017-07-31] MEDS ORDERED: LANTUS SUBCUT SCH (09:00)
--- NOTE | 2017-07-31 09:11 | PN ---
DATE OF SERVICE: 07/30/17 SUBJECTIVE: The patient is still hurting in the knees. The patient's family wants the patient to be in transitional care for physical and occupational therapy. Discussed the same with Yoana Blackmon, Baking Assistant, who thinks it would be an appropriate admission for her as the patient may benefit. REVIEW OF SYSTEMS: CONSTITUTIONAL: No fever, no chills. HEENT: Normal. ENDOCRINE: No weight gain, no weight loss. CVS: No angina symptoms. No CHF symptoms. No palpitations. No atypical chest pain for CAD. No shortness of breath. No PND, no orthopnea. RESPIRATORY: No cough, no hemoptysis. GI: No nausea, no vomiting. No abdominal pain. : No hematuria. No polyuria. MUSCULOSKELETAL: No joint swelling. PSYCHIATRIC: Not anxious. No depression. No suicidal thoughts. No homicidal thoughts. SKIN: Intact. No rash. PHYSICAL EXAMINATION: V/S: BP 130/61, respiratory rate 16, heart rate 67, temperature 98.2, saturation 100%. HEENT: Normocephalic, atraumatic. Mucosa dry. Pallor positive. No icterus. NECK: Supple. No JVD, no carotid bruit. No lymphadenopathy. LUNGS: Decreased entry. Clear to auscultation. No rales or rhonchi. HEART: S1, S2 normal. No S3. No murmur, gallop or regurgitation. ABDOMEN: Soft, nontender. Bowel sounds active. No rigidity. No rebound or guarding. No CVA tenderness. EXTREMITIES: Bilateral knee tenderness is present. No swelling. No cyanosis, clubbing. 1+ edema. MUSCULOSKELETAL: No joint swelling. NEUROLOGIC:Awake, alert, oriented times three. No focal deficit. LYMPHATIC: No lymph nodes palpable. SKIN: Intact. LABS: White count 7.91, hemoglobin 11.6, hematocrit 36.4, platelet count 203. Sodium 141, potassium 4.2, chloride 109, bicarb 32, BUN 24, creatinine 0.81, glucose 114. ASSESSMENT: 1. BILATERAL KNEE INTRACTABLE PAIN 2. STATUS POST UNCONTROLLED HYPERTENSION 3. STATUS POST UNCONTROLLED DIABETES 4. URINARY TRACT INFECTION 5. HYPERTENSION 6. DYSLIPIDEMIA 7. HISTORY OF INTRACRANIAL BLEED, MRI NOW SHOWING PREVIOUS STROKE PLAN: 1. Transitional care evaluation 2. Continue Rocephin 3. UTI, organism Proteus Mirabilis 4. Out of bed to chair 5. Activity as tolerated TIME SPENT: More than 35 minutes MTDD
[2017-07-31] MEDS ORDERED: TORADOL IVP PRN (09:18)
[2017-07-31] MEDS ORDERED: NORCO 5-325 PO SCH ×2 (09:30→21:00)
[2017-07-31] MEDS ORDERED: NORCO 5-325 PO STA (11:35)
--- NOTE | 2017-07-31 13:06 | PN ---
DATE OF SERVICE: 07/28/17 SUBJECTIVE: The patient was admitted with hypertensive urgency and uncontrolled diabetes. Sugar been better. The patient was hurting in the left knee, x-ray was done which showed the moderate arthritis. Now the patient is hurting in the right knee. She is able to walk some but complains about a lot of pain. REVIEW OF SYSTEMS: CONSTITUTIONAL: No fever, no chills. HEENT: Normal. ENDOCRINE: No weight gain, no weight loss. CVS: No angina symptoms. No CHF symptoms. No palpitations. No atypical chest pain for CAD. No shortness of breath. No PND, no orthopnea. RESPIRATORY: No cough, no hemoptysis. GI: No nausea, no vomiting. No abdominal pain. : No hematuria. No polyuria. MUSCULOSKELETAL: No joint swelling. PSYCHIATRIC: Not anxious. No depression. No suicidal thoughts. No homicidal thoughts. SKIN: Intact. No rash. PHYSICAL EXAMINATION: V/S: Blood pressure 147/76, respiratory rate 16, heart rate 66, temperature 97.8 with saturation 98%. HEENT: Normocephalic, atraumatic. Mucosa dry. Pallor positive. No icterus. NECK: Supple. No JVD, no carotid bruit. No lymphadenopathy. LUNGS: Clear to auscultation. No rales or rhonchi. HEART: S1, S2 normal. No S3. No murmur, gallop or regurgitation. ABDOMEN: Soft, nontender. Bowel sounds active. No rigidity. No rebound or guarding. No CVA tenderness. EXTREMITIES: No cyanosis, clubbing or pedal edema. Left knee swollen and tender. MUSCULOSKELETAL: No joint swelling. NEUROLOGIC: Awake, alert, oriented times three. No focal deficit. LYMPHATIC: No lymph nodes palpable. SKIN: Intact. LABS: WBC 8.73, hgb 10.4, hct 31.0, plt count 192, sodium 141, potassium 4.0, chloride 106, bicarb 25, BUN 20, creatinine 0.88 and glucose 195. ASSESSMENT: 1. Uncontrolled hypertension 2. Left knee pain from arthritis 3. Right knee pain 4. Diabetes Uncontrolled 5. Hypertension 6. Dyslipidemia 7. Osteoarthritis 8. History of fall with intracranial bleed, new MRI showing the chronic stable ischemic area otherwise no new problems PLAN: 1. Continue the Accu-checks with coverage 2. Out of bed to chair activity as tolerated 3. Family and daughter thinks that the patient should get some physical therapy and exercise. We will talk to the Map Clerk for possible transitional care unit at the [facility] . TIME SPENT: More than 35 minutes MTDPari
[2017-07-31] MEDS: HUMULIN R SUBCUT PRN ×2 (13:24→18:11)
--- NOTE | 2017-07-31 14:45 | PN ---
DATE OF SERVICE: 07/29/17 SUBJECTIVE: The patient was able to walk a little bit. Swelling in the left knee is better otherwise no fever, chills. No PND or orthopnea. REVIEW OF SYSTEMS: CONSTITUTIONAL: No fever, no chills. HEENT: Normal. ENDOCRINE: No weight gain, no weight loss. CVS: No angina symptoms. No CHF symptoms. No palpitations. No atypical chest pain for CAD. No shortness of breath. No PND, no orthopnea. RESPIRATORY: No cough, no hemoptysis. GI: No nausea, no vomiting. No abdominal pain. : No hematuria. No polyuria. MUSCULOSKELETAL: Swelling left knee is better. No joint swelling. PSYCHIATRIC: Not anxious. No depression. No suicidal thoughts. No homicidal thoughts. SKIN: Intact. No rash. PHYSICAL EXAMINATION: V/S: BP 155/77, respiratory rate 18, heart rate 78, temperature 98.2, saturation 98. HEENT: Normocephalic, atraumatic. Mucosa dry, pallor positive. No icterus. NECK: Supple. No JVD, no carotid bruit. No lymphadenopathy. LUNGS: Decreased entry. Clear to auscultation. No rales or rhonchi. HEART: S1, S2 normal. No S3. No murmur, gallop or regurgitation. ABDOMEN: Soft, nontender. Bowel sounds active. No rigidity. No rebound or guarding. No CVA tenderness. EXTREMITIES: 1+ edema. Left knee range of motion is better. Right knee range of motion is decreased. No cyanosis or clubbing. MUSCULOSKELETAL: No joint swelling. NEUROLOGIC: Awake, alert, oriented times three. No focal deficit. LYMPHATIC: No lymph nodes palpable. SKIN: Intact. LABS: Sodium 140, potassium 4.2, chloride 109, bicarb 22, BUN 24, creatinine 0.81, glucose 114. White count 7.91, hemoglobin 11.6, hematocrit 36.4, platelet count 203. ASSESSMENT: 1. STATUS POST UNCONTROLLED HYPERTENSION 2. STATUS POST UNCONTROLLED DIABETES MELLITUS 3. URINARY TRACT INFECTION 4. OSTEOARTHRITIS BILATERAL KNEE 5. HISTORY OF INTRACRANIAL BLEED 6. HYPERTENSION 7. DYSLIPIDEMIA PLAN: 1. PT/OT evaluation 2. Placement for transitional care 3. Continue pain medications 4. Activity as tolerated 5. Accu-Cheks with coverage 6. Urine growing Proteus Mirabilis TIME SPENT: More than 35 minutes MTDD
[2017-07-31 15:23] VITALS: TEMP 97.7
[2017-07-31] MEDS: SODIUM CHLORIDE 1,000 ML IV SCH (16:29)
[2017-07-31] MEDS ORDERED: OMNICEF PO STA (18:24)
[2017-07-31] MEDS ORDERED: OMNICEF ONE (18:25)
[2017-07-31 18:34] VITALS: BP 138/72
--- NOTE | 2017-08-28 09:37 | DS ---
DATE OF SERVICE: 07/31/17 FINAL DIAGNOSIS: 1. UNCONTROLLED HYPERTENSION 2. HEADACHE FROM UNCONTROLLED HYPERTENSION 3. UNCONTROLLED DIABETES 4. OSTEOARTHRITIS OF BOTH KNEES 5. HISTORY OF INTRACRANIAL BLEED; MRI OF BRAIN SHOWED NO NEW BLEED 6. CATARACT SURGERY 7. ALZHEIMER'S DEMENTIA 8. UTI, ORGANISM PROTEUS MIRABILIS DISCHARGE INSTRUCTIONS: 1. Discharge back to the prison 2. Will followup in the prison on rounds within 5 to 7 days 3. PT/OT please evaluate and treat 4. CBC, CMP within one week MEDICATIONS AT DISCHARGE: Tylenol 650 mg q.4hr Hydrocodone 5 mg twice a day Norvasc 5 mg daily Lipitor Ferrous Sulfate Tradgenta Zestril Lopressor Zantac Regular insulin coverage Omnicef NEW PRESCRIPTIONS: Lantus 17 unit subcut b.i.d DIET INSTRUCTIONS: ACTIVITY: SMOKING: DISEASE SPECIFIC EDUCATION: Fall precaution, history of head injuries have been discussed, verbalized understanding. HOSPITAL COURSE: This is a 77-year-old female who came to the emergency room with severe headache and there was a question of falling. The patient did have history of intracranial bleed so the patient and family were worried. The patient was sent to the emergncy room for evaluation. Blood pressure was high. TIME SPENT: MORE THAN 65 MINUTES MTDD
--- NOTE | 2017-09-11 14:34 | HP ---
DATE OF SERVICE: 07/24/17 The patient is seen and examined in the emergency room by myself. I agree with the plan of the progress note. OTIS
== END 2017-07-31 19:10 | DRG 914 ==
LOC: ED 18:58 → MEDSURG B 21:19
PROVIDERS: ADMIT Emergency Medicine; ATTEND Emergency Medicine
DX: S09.90XA Unspecified injury of head, initial encounter (principal); N39.0 Urinary tract infection, site not specified; R51 Headache; I10 Essential (primary) hypertension; B96.4 Proteus (mirabilis) (morganii) as the cause of diseases classified elsewhere; E11.8 Type 2 diabetes mellitus with unspecified complications; E03.9 Hypothyroidism, unspecified; E78.5 Hyperlipidemia, unspecified; D64.9 Anemia, unspecified; K21.9 Gastro-esophageal reflux disease without esophagitis; M17.0 Bilateral primary osteoarthritis of knee; M25.562 Pain in left knee; M25.561 Pain in right knee; M47.9 Spondylosis, unspecified; G30.9 Alzheimer's disease, unspecified; F02.80 Dementia in other diseases classified elsewhere, unspecified severity, without behavioral disturbance, psychotic disturbance, mood disturbance, and anxiety; Z79.4 Long term (current) use of insulin; Z86.79 Personal history of other diseases of the circulatory system; Z91.81 History of falling; Z86.73 Personal history of transient ischemic attack (TIA), and cerebral infarction without residual deficits
CPT/HCPCS: 36415; 80053; 81001; 82550; 82962; 83880; 84484; 85025; 85610; 87081; 87086; 87186; 93005; 93010; 99232; 99233; 99239; 99284

== ENCOUNTER 2017-08-14 07:37 | Emergency (ER) ==
[2017-08-14 07:38] VITALS: BMI 33.3
[2017-08-14 07:47] VITALS: BP 156/70; TEMP 98.2
--- NOTE | 2017-08-14 08:34 | ED.PDOC ---
General ED Provider: Dr. JAYME AC Chief Complaint: Headache Stated Complaint: headache Time Seen by Physician: 07:45 (Lorri Gold RN PRESENT ) Mode of Arrival: Stretcher Information Source: Patient, [facility], EMT Exam Limitations: No limitations Primary Care Provider: [facility] Nursing and Triage Documentation Reviewed and Agree: Yes Reviewed sepsis parameters & appropriate labs ordered?: No System Inflammatory Response Syndrome: Not Applicable Sepsis Protocol: For patient's 13 years and over: Temp is 96.8 and below OR 101 and greater Pulse >90 BPM Resp >20/minute Acutely Altered Mental Status Are patient's symptoms suggestive of a new infection, such as: -Pneumonia -Skin, Soft Tissue -Endocarditis -UTI -Bone, Joint Infection -Implantable Device -Acute Abdominal Infection -Wound Infection -Meningitis -Blood Stream Catheter Infection -Unknown Neurological Complaint Exam - Headache Complaint/Exam Onset: Gradual Duration: this is a chronic issue but worse today Symptoms Are: Still present Timing: Intermittent Episodes Lasting: Weeks Worst Headache Ever: No Initial Severity: Moderate Current Severity: Mild Location: Diffuse Character: Reports: Dull Aggravating: Reports: None Alleviating: Reports: Rest Associated Signs and Symptoms: Reports: Neck pain. Denies: Dizziness, Seizure, Nausea, Vomiting, Sinus pressure, Fever, Neck stiffness, Decreased LOC, Visual changes Related History: Reports: Similar episode Related Surgical History: Reports: None SAH Risk Factors: Reports: Hypertension Meningitis Risk Factors: Reports: None SDH Risk Factors: Reports: Elderly Temporal Arteritis Risk Factors: Reports: Female, Normal Head CT Within Last 12 Months: No (chronic subdural hematoma ) Fundoscopic Exam: Present: Normal Findings Papilledema Present: No Temporal Artery Tenderness: Present: None Sinus Tenderness: Present: None TMJ Tenderness: Present: None Glascow Coma Scale (see protocol): 15 Meningeal Signs Positive: No Pain on Passive Flexion-Positive Kernig's: No ROM Limited In: No Limitiations Focal Weakness: Present: None Focal Sensory Loss: Present: None Gait: Unable Nystagmus Present: No Gag Reflex Present: Yes [id number]: Normal Findings Romberg Test Positive: No (unable) Babinski Sign: Negative Right, Negative Left Heel to Toe Normal: No (unable) Differential Diagnoses: Other (chronic headache) Review of Systems - Review Of Systems Constitutional: Reports: No symptoms Eyes: Reports: No symptoms Ears, Nose, Mouth, Throat: Reports: No symptoms Respiratory: Reports: No symptoms Cardiac: Reports: No symptoms GI: Reports: No symptoms : Reports: No symptoms Musculoskeletal: Reports: No symptoms Skin: Reports: No symptoms Neurological: Reports: Headache Endocrine: Reports: No symptoms Hematologic/Lymphatic: Reports: No symptoms All Other Systems: Reviewed and Negative Past Medical History - Past Medical History Previously Healthy: Yes Endocrine: Reports: DM 2, Hypothyroid, Dyslipidemia Cardiovascular: Reports: Hypertension Respiratory: Reports: None Hematological: Reports: Anemia Gastrointestinal: Reports: GERD Genitourinary: Reports: None Neuro/Psych: Reports: None, Other (h/o bleed in brain) Musculoskeletal: Reports: Arthritis, Back Pain Cancer: Reports: None Last Menstrual Period: menopause - Surgical History General Surgical History: Reports: None - Family History Family History: Reports: None - Social History Smoking Status: Former smoker Hx Substance Use: No Alcohol Screening: None Physical Exam - Physical Exam Appearance: Well-appearing, No pain distress, Well-nourished Eyes: JUAN, EOMI, Conjunctiva clear ENT: Ears normal, Nose normal, Oropharynx normal Respiratory: Airway patent, Breath sounds clear, Breath sounds equal, Respirations nonlabored Cardiovascular: RRR, Pulses normal, No rub, No murmur GI/: Soft, Nontender, No masses, Bowel sounds normal, No Organomegaly Musculoskeletal: Normal strength, ROM intact, No edema, No calf tenderness Skin: Warm, Dry, Normal color Neurological: Sensation intact, Motor intact, Reflexes intact, Cranial nerves intact, Alert, Oriented Psychiatric: Affect appropriate, Mood appropriate Physician Notification - Case Discussed Physician Notified: pmd Time of Notification: 09:27 (may go home) Critical Care Note - Critical Care Note Total Time (mins): 0 Course - Course Hematology/Chemistry: 08/14/17 08:05 08/14/17 08:05 Orders, Labs, Meds: Lab Review 08/14/17 08/14/17 08/14/17 08:05 08:05 08:13 WBC 8.26 RBC 3.36 L Hgb 10.0 L Hct 29.6 L MCV 88.1 MCH 29.8 MCHC 33.8 RDW Coeff of Yocasta 13.8 Plt Count 196 Immature Gran % (Auto) 0.5 Neut % (Auto) 62.5 Lymph % (Auto) 21.3 Upson % (Auto) 12.3 H Eos % (Auto) 2.7 Baso % (Auto) 0.7 Immature Gran # (Auto) 0.0 Neut # (Auto) 5.2 Lymph # (Auto) 1.8 Upson # (Auto) 1.0 Eos # (Auto) 0.2 Baso # (Auto) 0.1 ESR 75 H Sodium 139 Potassium 4.2 Chloride 104 Carbon Dioxide 26 Anion Gap 13.2 BUN 23 H Creatinine 1.00 Estimated GFR (MDRD) 54.00 BUN/Creatinine Ratio 23.00 Glucose 316 H Calcium 9.1 Total Bilirubin 0.8 AST 16 ALT 20 Alkaline Phosphatase 87 Total Protein 6.6 Albumin 2.8 L Globulin 3.8 Albumin/Globulin Ratio 0.74 Orders Category Date Time Status CBC W/ AUTO DIFF Stat LAB 08/14/17 08:05 Completed COMPREHENSIVE METABOLIC PANEL Stat LAB 08/14/17 08:05 Completed ESR Stat LAB 08/14/17 08:[address] CERVICAL SPINE W/O CONTRAST Stat RADS 08/14/17 07:[address] HEAD W/O CONTRAST Stat RADS 08/14/17 07:58 Completed Vital Signs: Temp Pulse Resp BP Pulse Ox 08/14/17 07:38 98.2 F 90 20 156/70 H 98 Departure - Departure Time of Disposition: 10:00 Disposition: HOME SELF-CARE Discharge Problem: Headache Anemia Qualifiers: Anemia type: unspecified type Qualified Code(s): D64.9 - Anemia, unspecified Uncontrolled diabetes mellitus Qualifiers: Diabetes mellitus manager long term care insulin use: unspecified long-term insulin use status Instructions: General Headache (ED) Condition: Good Pt referred to PMD for follow-up: Yes IPMP verified?: No Additional Instructions: Please call your Family Physician as soon as possible to schedule a follow-up appointment. Allergies/Adverse Reactions: Allergies No Known Allergies Allergy (Verified 08/14/17 07:52) Home Medications: Ambulatory Orders Amlodipine Besylate [Norvasc] 5 mg PO DAILY 10/24/16 Ranitidine HCl [Zantac] 150 mg PO QDAC 10/24/16 Lisinopril [Zestril] 40 mg PO DAILY #30 tablet 11/07/16 Insulin Regular, Human [Humulin R] 0 - 100 unit SUBCUT ACHS PRN 04/08/17 Linagliptin [Tradjenta] 5 mg PO DAILY 04/08/17 Acetaminophen 650 mg PO Q4H PRN 07/24/17 Atorvastatin Calcium [Lipitor] 20 mg PO BEDTIME 07/24/17 Ferrous Sulfate 325 mg PO BID 07/24/17 Furosemide [Lasix Tab] 20 mg PO QDAC 08/14/17 Hydrocodone/Acetaminophen [Hydrocodon-Acetaminoph 2.5-325] 1 each PO Q12H PRN Insulin Glargine,Hum.rec.anlog [Margaret Franco U-100] 17 unit SQ BID 08/14/17 Metoprolol Tartrate [Lopressor] 50 mg PO BID 08/14/17 Potassium Chloride [Klor-Con 10] 10 meq PO DAILY 08/14/17 Disposition Discussed With: Patient
--- NOTE | 2017-08-14 08:53 | CT ---
EXAM: CT cervical spine without contrast. HISTORY: Neck pain. COMPARISON: None available. TECHNIQUE: Multiple axial images of the cervical spine were obtained without intravenous contrast. Images were reformatted in the sagittal and coronal planes. FINDINGS: Alignment is normal. There is straightening of the normal lordosis. Vertebral body heigh ts are maintained. There is severe loss of disc height at C6-7 and moderate loss of disc height at C 5-6. There is severe loss of the joint space of the anterior C1-2 articulation with associated subch ondral sclerosis, subchondral cyst and marginal osteophyte formation as well as pannus formation post erior to the dens. No fracture or subluxation identified. C2-3: Uncovertebral hypertrophy and facet arthropathy with moderate right neural foraminal narrowing . C3-4: Disc osteophyte formation, uncovertebral hypertrophy and facet arthropathy with mild central c anal stenosis and mild right and moderate to severe left neural foraminal narrowing. C4-5: Disc osteophyte formation, uncovertebral hypertrophy and facet arthropathy with mild moderate right and moderate to severe left neural foraminal narrowing. C5-6: Disc osteophyte formation, uncovertebral hypertrophy and facet arthropathy with mild central c anal stenosis and moderate neural foraminal narrowing. C6-7: Disc osteophyte formation, uncovertebral hypertrophy and facet arthropathy with moderate centr al canal stenosis and severe right and mild left neural foraminal narrowing. C7-T1: Uncovertebral hypertrophy and facet arthropathy with moderate to severe neural foraminal narr owing. Paravertebral soft tissues without acute abnormality. Probable lymph nodes in the parotid glands rivera aterally. Lung apices are clear. There is mild right sphenoid sinusitis IMPRESSION: 1. No fracture or subluxation. 2. Multilevel degenerative changes as described.
--- NOTE | 2017-08-14 08:53 | CT ---
EXAM: CT head without contrast HISTORY: Headache with history of chronic subdural COMPARISON: None. TECHNIQUE: Helical axial CT of the head was performed without contrast. Coronal and sagittal reconstr uctions were performed. FINDINGS: There is no acute intracranial abnormality. There is no hemorrhage, mass, midline shift, abnormal ex tra-axial fluid collection, hydrocephalus or evolving ischemia. There is a chronic infarct in the lef t posterior temporal and occipital area. There is moderate atrophy. There is chronic small vessel is chemia in the white matter. Brain parenchyma, ventricles and sulci are otherwise normal. There are no acute calvarial lesions. Visualized orbits and globes are unremarkable. The mastoid ai r cells demonstrate no significant soft tissue opacification. The visualized paranasal sinuses show n o air-fluid levels. IMPRESSION: 1. No acute abnormality. Specifically there is no evidence for subdural hemorrhage at this time. 2. 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 3. Senescent changes.
== END 2017-08-14 10:05 | disposition home or self-care (01) ==
LOC: ED 07:37
DX: R51 Headache (principal); D64.9 Anemia, unspecified; E11.65 Type 2 diabetes mellitus with hyperglycemia; Z79.4 Long term (current) use of insulin; I62.03 Nontraumatic chronic subdural hemorrhage; I10 Essential (primary) hypertension; M54.2 Cervicalgia; E03.9 Hypothyroidism, unspecified; E78.5 Hyperlipidemia, unspecified; Z79.899 Other long term (current) drug therapy
CPT/HCPCS: 36415; 80053; 85025; 85651; 99283

== ENCOUNTER 2017-12-05 09:32 | Outpatient (CLI) | payer OTHER | END 2017-12-05 09:49 | disposition short-term general hospital (02) | LOC: AMBL 09:32 | PROVIDERS: ATTEND Internal Medicine | DX: M25.551 Pain in right hip (principal); M79.604 Pain in right leg; W19.XXXA Unspecified fall, initial encounter; F03.90 Unspecified dementia, unspecified severity, without behavioral disturbance, psychotic disturbance, mood disturbance, and anxiety ==

== ENCOUNTER 2022-07-18 13:48 | Inpatient (IN) ==
--- NOTE | 2022-07-18 13:57 | ED.PDOC ---
General ED Provider: Dr. STEVIE TURK DO Chief Complaint: Non-specific Complaint Stated Complaint: Patient here for tremor from SNF Patient arrives afebrile and vitally stable by EMS, no interventions en route Afebrile and vitally stable Patient sent from SNF for tremors Patient smells of urine, she is a poor historian Time Seen by Provider: 07/18/22 13:53 Information Source: Patient Primary Care Provider: MOY ROBINS Nursing and Triage Documentation Reviewed and Agree: Yes Does patient meet sepsis criteria?: No System Inflammatory Response Syndrome: Not Applicable Sepsis Protocol: For patient's 13 years and over: Temp is 96.8 and below OR 101 and greater Pulse >90 BPM Resp >20/minute Acutely Altered Mental Status Are patient's symptoms suggestive of a new infection, such as: -Pneumonia -Skin, Soft Tissue -Endocarditis -UTI -Bone, Joint Infection -Implantable Device -Acute Abdominal Infection -Wound Infection -Meningitis -Blood Stream Catheter Infection -Unknown Review of Systems Review Of Systems Constitutional: Denies Chills, Diaphoresis, Fever or Malaise Eyes: Denies Blindness or Vision change Ears, Nose, Mouth, Throat: Denies Ear pain or Ear discharge Respiratory: Denies Cough or Short of air Cardiac: Denies Chest pain, Edema or Irregular heart rate GI: Denies Abdomen distended or Abdominal pain : Denies Burning, Dysuria or Discharge Musculoskeletal: Denies Back pain or Joint pain Skin: Denies Bruising or Dryness Neurological: Denies Anxiety, Depressed or Emotional problems Endocrine: Denies No symptoms Hematologic/Lymphatic: Denies No symptoms or Easy bruising All Other Systems: Reviewed and Negative [facility] Medical History (Updated 07/18/22 @ 17:57 by STEVIE TURK DO) Adult failure to thrive R62.7 - Adult failure to thrive (ICD-10) Atherosclerosis of coronary artery I25.10 - Atherosclerotic heart disease of circle coronary artery without angina pectoris (ICD-10) Cognitive communication deficit R41.841 - Cognitive communication deficit (ICD-10) DDD (degenerative disc disease), lumbar M51.36 - Other intervertebral disc degeneration, lumbar region (ICD-10) Diabetes mellitus E11.9 - Type 2 diabetes mellitus without complications (ICD-10) Diabetic polyneuropathy E11.42 - Type 2 diabetes mellitus with diabetic polyneuropathy (ICD-10) Hypertension I10 - Essential (primary) hypertension (ICD-10) Right knee pain M25.561 - Pain in right knee (ICD-10) Social History (Updated 03/06/19 @ 15:14 by CHATO QUEVEDO LPN) Smoking and tobacco status: Unknown if ever smoked Alcohol intake: unknown Substance use type: unknown Housing: intermediate snf: Yes History of recent travel: No Female Reproductive History Menstrual Hx Hysterectomy: No Hx Tubal Ligation: No Physical Exam Physical Exam Appearance: Reports Well-appearing, Well-nourished, Obese and Other (smells of urine) Ill-appearing: Not Applicable Pain Distress: Not Applicable Eyes: Reports JUAN and EOMI ENT: Reports Ears normal and Nose normal Neck: Supple Respiratory: Reports Airway patent and Breath sounds clear Cardiovascular: Reports RRR and Pulses normal GI/: Reports Soft and Nontender Musculoskeletal: Reports Normal strength and ROM intact Skin: Reports Warm, Dry and Normal color Neurological: Reports Sensation intact and Motor intact Psychiatric: Reports Affect appropriate, Mood appropriate and Other (pleasantly confused) Interpretation EKG Interpretation Time of EKG #1: 14:46 Rate: Normal Rhythm: Other Ectopy: None ST Segment: Normal Interpretation: irregular rhythm normal rate, EKG interpreted by me EKG Interpretation By: ED Physician EKG Comparison: Other (new undetermined rhythm, previous nsl, appears irregular with possible p waves) Time of EKG #2: 16:08 Rate: Normal Rhythm: Other (a fib) Ectopy: None ST Segment: Normal EKG Interpretation: Now shows afib simialr to previous Critical Care Note Critical Care Note Total Critical Care Time (mins): 0 Course Course 07/18/22 14:10 07/18/22 16:57 Orders, Labs, Meds: Lab Review 07/18/22 07/18/22 07/18/22 14:10 15:06 15:12 WBC 10.99 H RBC 3.62 L Hgb 11.4 L Hct 35.7 L MCV 98.6 MCH 31.5 H MCHC 31.9 RDW Coeff of Yocasta 13.2 Plt Count 201 Immature Gran % (Auto) 1.2 Neut % (Auto) 58.3 Lymph % (Auto) 24.3 Smith % (Auto) 9.2 Eos % (Auto) 5.9 Baso % (Auto) 1.1 Neut # (Auto) 6.4 Lymph # (Auto) 2.7 Smith # (Auto) 1.0 Eos # (Auto) 0.7 Baso # (Auto) 0.1 Immature Gran # (Auto) 0.1 Sodium 138.8 Potassium 5.86 H Chloride 104.7 Carbon Dioxide 25.6 Anion Gap 14.36 BUN 46.6 H Creatinine 1.86 H Estimated GFR (MDRD) 26.00 BUN/Creatinine Ratio 25.05 Glucose 132.6 H Lactic Acid 1.66 Calcium 8.97 Total Bilirubin 0.51 AST 30.8 ALT 21.0 Alkaline Phosphatase 111.0 Troponin I 0.023 NT-Pro-B Natriuret Pep 1600 H Total Protein 7.70 Albumin 4.19 Globulin 3.51 Albumin/Globulin Ratio 1.19 Lipase 77.2 D-Dimer 1203.80 H SARS CoV-2 RNA Rapid YARON Negative 07/18/22 16:57 WBC RBC Hgb Hct MCV MCH MCHC RDW Coeff of Yocasta Plt Count Immature Gran % (Auto) Neut % (Auto) Lymph % (Auto) Smith % (Auto) Eos % (Auto) Baso % (Auto) Neut # (Auto) Lymph # (Auto) Smith # (Auto) Eos # (Auto) Baso # (Auto) Immature Gran # (Auto) Sodium 139.7 Potassium 5.56 H Chloride 107.5 H Carbon Dioxide 27.8 Anion Gap 9.96 BUN 46.8 H Creatinine 1.88 H Estimated GFR (MDRD) 26.00 BUN/Creatinine Ratio 24.89 Glucose 100.4 Lactic Acid Calcium 8.76 Total Bilirubin AST ALT Alkaline Phosphatase Troponin I 0.024 NT-Pro-B Natriuret Pep Total Protein Albumin Globulin Albumin/Globulin Ratio Lipase D-Dimer SARS CoV-2 RNA Rapid YARON Orders Category Date Time Status OBSERVATION [PLACE PATIENT OBSERVATION] .TO MEDSURG ADMISSION 07/18/22 17:57 Active (MONITORED BED) EKG-(ED ONLY) Stat CARDIO 07/18/22 14:43 Completed EKG-(ED ONLY) Stat CARDIO 07/18/22 16:14 Completed STRAIGHT CATH INSERTION ONCE CARE 07/18/22 17:43 Active TELEMETRY MONITORING TELE CARE 07/18/22 17:57 Active IV [ED IV/MEDIPORT/POWERPORT] .ONCE EMERGENCY 07/18/22 15:12 Active BMP [BASIC METABOLIC PANEL] Timed LAB 07/18/22 16:57 Completed CBC W/ AUTO DIFF Stat LAB 07/18/22 14:10 Completed COMPREHENSIVE METABOLIC PANEL Stat LAB 07/18/22 14:10 Completed D-DIMER Stat LAB 07/18/22 15:12 Completed LACTIC ACID Stat LAB 07/18/22 14:10 Completed LIPASE Stat LAB 07/18/22 14:10 Completed NT-PROBNP(ED) Stat LAB 07/18/22 14:10 Completed SARS COV-2 RNA RAPID YARON Stat LAB 07/18/22 15:06 Completed TROPONIN I Stat LAB 07/18/22 14:10 Completed TROPONIN I Stat LAB 07/18/22 16:57 Completed URINALYSIS C & S IF INDICATED Stat LAB 07/18/22 13:53 Uncollected 0.9 % Sodium Chloride [Saline Flush] MEDS 07/18/22 13:53 Active 1 syr IVF PRN PRN Enoxaparin Sodium [Lovenox] MEDS 07/18/22 17:54 Discontinued 110 mg SUBCUT ONCE ONE Sodium Chloride 0.9% [Sodium Chloride] 1,000 ml MEDS 07/18/22 14:43 Discontinued IV BOLUS CXR [CHEST, 2 VIEWS PA & LAT] Stat RADS 07/18/22 15:02 Completed US VENOUS SCAN CORRIE LEGS [U/S VENOUS SCAN CORRIE LEGS] Stat RADS 07/18/22 16:14 Completed Medications Generic Name Dose Route Start Last Admin Trade Name Freq PRN Reason Stop Dose Admin Sodium Chloride 1 syr 07/18/22 13:53 0.9% Sodium Chloride 10 Ml Disp.Syrin IVF PRN PRN To flush IV Discontinued Medications Generic Name Dose Route Start Last Admin Trade Name Freq PRN Reason Stop Dose Admin Enoxaparin Sodium 110 mg 07/18/22 17:54 Enoxaparin Sodium 100 Mg/Ml Syr SUBCUT 07/18/22 17:55 ONCE ONE Sodium Chloride 1,000 mls @ 1,000 mls/hr 07/18/22 14:43 07/18/22 15:24 Sodium Chloride IV 07/18/22 15:42 1,000 mls/hr BOLUS STA Administration Vital Signs: Temp Pulse Resp BP Pulse Ox 07/18/22 13:49 97.8 F 72 15 144/76 H 100 I called Ali nurse at the SNF, she reports patient had worse tremors, she had a low pulse ox, likely machine error, normal with EMS and here, patient has no complaints Patient has elevated K+ 5.86 suspect decreased PO fluids and continued potassium supplementation, will give fluids and retest, ekg shows possible new onset afib, pending repeat ekg, trop/bnp/d diemr added With d dimer 1200+ will order BL LE US, if GFR repeat after 1 L NS over 30 will perform CTA chest. If GFR under 30 will obs and anticoagulate and repeat bmp and CTA chest when GFR improves with time, repeat EKG shows afib BL LE US show no dvt, pending hospitalist for admission MDM: Patient is a 82 yo F sent by [facility] for tremor and sob Patient afebrile and vitally stable Patient unable to provide hx 2/2 dementia, hx from ems, RN at [facility] Cindy Mendoza called and chart review by me Patient DNR per records 3+ labs and 3 images reviewed by me Patient had hyperkalemia likely from poor PO intake and continue K+ supplementation, plan hydration and repeat potassium level We added EKG, Trop, D dimer to check heart parameters in setting of patient who cannot provide hx and concerning potassium level Negative trop BNP elevated after fluids given, patient tolerated this, potassium improved and GFR remained under 30 BL LE US negative Consults with Hospitalist team, plan for lovenox 1 mg/kg for new onset afib and perform CTA chest if GFR improves or V/Q Scan Saturday, low wells score WDX: Hyperkalemia, elevated BNP, new onset atrial fibrillation, elevated d dimer acute condition high complexity DDX: I considered ACS, DVT, sepsis, but these are less likely Patient admitted stable SDOH: Patient insured with SNF support Discharge Plan Discharge Patient Disposition: PLACED OBSERVATION Discharge Problem: Elevated brain natriuretic peptide (BNP) level, New onset a-fib, D-dimer, elevated, Acute hyperkalemia Did you review [place] [employer] for ALL controlled substances?: Not Applicable ED Provider: STEVIE TURK Condition: Good Physician Progress Note: []
[2022-07-18 14:14] LABS: BASOPHILS # (AUTO) 0.1 K/uL (0-0.2); BASOPHILS % (AUTO) 1.1 % (0.0-3.0); EOSINOPHILS # (AUTO) 0.7 K/ul (0.0-0.7); EOSINOPHILS % (AUTO) 5.9 % (0.0-7.0); HEMATOCRIT 35.7 % (37.0-47.0); HEMOGLOBIN 11.4 g/dl (12.0-16.0); IMMATURE GRANULOCYTE # (AUTO) 0.1 (0.0-1.0); IMMATURE GRANULOCYTE % (AUTO) 1.2 % (0.0-5.0); LYMPHOCYTES # (AUTO) 2.7 K/uL (0.60-3.4); LYMPHOCYTES % (AUTO) 24.3 (10.0-50.0); MEAN CORPUSCULAR HEMOGLOBIN 31.5 pg (27.0-31.0); MEAN CORPUSCULAR HGB CONC 31.9 (31.8-35.4); MEAN CORPUSCULAR VOLUME 98.6 fl (81.0-99.0); MONOCYTES % (AUTO) 9.2 (0-10); NEUTROPHILS # (AUTO) 6.4 K/ul (2.0-6.9); NEUTROPHILS % (AUTO) 58.3 % (42.2-75.2); PLATELET COUNT 201 10^3/uL (140-440); RDW COEFFICIENT OF VARIATION 13.2 % (11.6-14.8); RED BLOOD COUNT 3.62 10^6/ul (4.20-5.40); WHITE BLOOD COUNT 10.99 K/ul (4.6-10.2)
[2022-07-18 14:27] LABS: ALBUMIN 4.19 g/dL (3.5-5.0); ASPARTATE AMINO TRANSFERASE 30.8 U/L (14-36); BILIRUBIN,TOTAL 0.51 mg/dL (0.2-1.3); BLOOD UREA NITROGEN 46.6 mg/dL (7-17); CALCIUM 8.97 mg/dL (8.4-10.2); CARBON DIOXIDE 25.6 mmol/L (22-30.0); CHLORIDE 104.7 mmol/L (98-107); CREATININE 1.86 mg/dL (0.60-1.30); GLUCOSE 132.6 mg/dL (74-106); LIPASE 77.2 U/L (23-300); POTASSIUM 5.86 mmol/L (3.5-5.1); SODIUM 138.8 mmol/L (134.5-145); TOTAL PROTEIN 7.7 g/dL (6.3-8.2)
[2022-07-18] MEDS ORDERED: SODIUM CHLORIDE 1,000 ML IV STA (14:43)
[2022-07-18 15:23] LABS: TROPONIN I 0.023 ng/ml (0.0000-0.120)
--- NOTE | 2022-07-18 15:35 | DI ---
EXAM: CHEST RADIOGRAPH TECHNIQUE: Two views. Frontal and lateral. HISTORY: No COMPARISON: 02/08/2022 FINDINGS: There is cardiomegaly. Pulmonary vasculature and mediastinal contours are otherwise intact . No focal infiltrate, effusion, or pneumothorax is identified. IMPRESSION: 1. Cardiomegaly. No acute cardiopulmonary disease.
[2022-07-18 15:49] LABS: SARS COV-2 RNA RAPID NAAT NEGATIVE (NEGATIVE)
[2022-07-18 17:15] LABS: BLOOD UREA NITROGEN 46.8 mg/dL (7-17); CALCIUM 8.76 mg/dL (8.4-10.2); CARBON DIOXIDE 27.8 mmol/L (22-30.0); CHLORIDE 107.5 mmol/L (98-107); CREATININE 1.88 mg/dL (0.60-1.30); GLUCOSE 100.4 mg/dL (74-106); POTASSIUM 5.56 mmol/L (3.5-5.1); SODIUM 139.7 mmol/L (134.5-145)
--- NOTE | 2022-07-18 17:22 | US ---
EXAM: BILATERAL LOWER EXTREMITY DEEP VENOUS ULTRASOUND WITH DOPPLER IMAGING HISTORY: Elevated D-dimer. TECHNIQUE: Wall-scale ultrasound with compression maneuvers and color and spectral Doppler ultrasound at rest and with augmentation of the veins was performed. Images were obtained and stored in a perm anent archive. COMPARISON: None FINDINGS: RIGHT LOWER EXTREMITY: Common Femoral Vein: Normal compression. Normal flow on color Doppler images. Normal response to augm entation. Deep Femoral Vein: Normal compression. Normal flow on color Doppler images. Normal response to augmen tation. Femoral Vein: Non-visualization of the mid superficial femoral vein. Popliteal Vein: Normal compression. Normal flow on color Doppler images. Normal response to augmentat ion. Peroneal Vein: Normal compression. Normal flow on color Doppler images. Posterior Tibial Vein: Normal compression. Normal flow on color Doppler images. Anterior Tibial Vein: Not visualized. . Greater Saphenous Vein (Superficial): Normal compression. Normal flow on color Doppler images. Other: No reflux. LEFT LOWER EXTREMITY: Common Femoral Vein: Normal compression. Normal flow on color Doppler images. Normal response to augm entation. Deep Femoral Vein: Normal compression. Normal flow on color Doppler images. Normal response to augmen tation. Femoral Vein: Non-visualization of the mid superficial femoral vein Popliteal Vein: Not visualized Peroneal Vein: Not visualized . Posterior Tibial Vein: Normal compression. Normal flow on color Doppler images. Anterior Tibial Vein: Not visualized. . Greater Saphenous Vein (Superficial): Normal compression. Normal flow on color Doppler images. Other: No reflux. IMPRESSION: No deep venous thrombosis (DVT) in the visualized portion of the bilateral lower extremities. No superficial venous thrombosis (SVT) in the visualized aspect of the bilateral lower extremities at the levels examined.
[2022-07-18] MEDS ORDERED: LOVENOX SUBCUT ONE (17:54)
[2022-07-18 18:38] LABS: BILIRUBIN,URINE Negative (NEGATIVE); CLARITY,URINE Clear (CLEAR); COLOR,URINE Yellow (YELLOW); GLUCOSE, URINE (UA) Negative (NEGATIVE); KETONES,URINE Negative (NEGATIVE); LEUKOCYTE ESTERASE ,URINE Trace (NEGATIVE); NITRITE,URINE Negative (NEGATIVE); PROTEIN,URINE Negative (NEGATIVE); URINE, BLOOD Trace-lysed (NEGATIVE); UROBILINOGEN,URINE 0.2 (0.2)
[2022-07-18] MEDS ORDERED: LOVENOX SUBCUT STA (18:38)
[2022-07-18 18:42] LABS: SQUAMOUS EPITHELIAL CELL,UR NOT PRESENT (0-5); URINE RBC, MICROSCOPIC 0-2 (0-2)
[2022-07-18] MEDS ORDERED: COZAAR PO SCH (20:00)
[2022-07-18 21:10] VITALS: BMI 39.0
[2022-07-18] MEDS: LANTUS SUBCUT SCH ×2 (22:08→22:09)
[2022-07-18] MEDS: FERROUS SULFATE PO SCH (22:08)
[2022-07-18] MEDS: LOPRESSOR PO SCH (22:08)
[2022-07-18] MEDS: SODIUM CHLORIDE 1,000 ML IV SCH (22:13)
[2022-07-19 05:00] LABS: BASOPHILS # (AUTO) 0.1 K/uL (0-0.2); BASOPHILS % (AUTO) 1.2 % (0.0-3.0); EOSINOPHILS # (AUTO) 0.7 K/ul (0.0-0.7); EOSINOPHILS % (AUTO) 7.3 % (0.0-7.0); HEMATOCRIT 34.3 % (37.0-47.0); HEMOGLOBIN 10.9 g/dl (12.0-16.0); IMMATURE GRANULOCYTE # (AUTO) 0.1 (0.0-1.0); IMMATURE GRANULOCYTE % (AUTO) 1.2 % (0.0-5.0); LYMPHOCYTES # (AUTO) 2.5 K/uL (0.60-3.4); LYMPHOCYTES % (AUTO) 26.6 (10.0-50.0); MEAN CORPUSCULAR HEMOGLOBIN 31.2 pg (27.0-31.0); MEAN CORPUSCULAR HGB CONC 31.8 (31.8-35.4); MEAN CORPUSCULAR VOLUME 98.3 fl (81.0-99.0); MONOCYTES # (AUTO) 1.1 K/uL (0.4-2.0); MONOCYTES % (AUTO) 11.3 (0-10); NEUTROPHILS % (AUTO) 52.4 % (42.2-75.2); PLATELET COUNT 187 10^3/uL (140-440); RDW COEFFICIENT OF VARIATION 13.3 % (11.6-14.8); RED BLOOD COUNT 3.49 10^6/ul (4.20-5.40); WHITE BLOOD COUNT 9.49 K/ul (4.6-10.2)
[2022-07-19 05:12] LABS: ALANINE AMINOTRANSFERASE 19.1 U/L (0-35); ALBUMIN 3.87 g/dL (3.5-5.0); ALKALINE PHOSPHATASE 96.6 U/L (53-141); ASPARTATE AMINO TRANSFERASE 33.3 U/L (14-36); BILIRUBIN,TOTAL 0.43 mg/dL (0.2-1.3); BLOOD UREA NITROGEN 47.1 mg/dL (7-17); CALCIUM 8.63 mg/dL (8.4-10.2); CARBON DIOXIDE 28.1 mmol/L (22-30.0); CHLORIDE 107.3 mmol/L (98-107); CREATININE 1.99 mg/dL (0.60-1.30); GLUCOSE 134.6 mg/dL (74-106); POTASSIUM 5.93 mmol/L (3.5-5.1); SODIUM 139.5 mmol/L (134.5-145); TOTAL PROTEIN 7.22 g/dL (6.3-8.2)
[2022-07-19] MEDS ORDERED: PEPCID PO SCH (09:00)
[2022-07-19] MEDS ORDERED: KAYEXALATE SUSP PO ONE (09:09)
[2022-07-19] MEDS ORDERED: DEXTROSE 50%-WATER ABBOJECT IVP ONE (09:09)
[2022-07-19] MEDS ORDERED: HUMULIN R IVP STA (09:09)
[2022-07-19] MEDS ORDERED: LASIX IVP ONE (09:09)
[2022-07-19] MEDS: SODIUM CHLORIDE 1,000 ML IV SCH (09:25)
[2022-07-19] MEDS: ZITHROMAX PO SCH (09:40)
[2022-07-19] MEDS: TRADJENTA PO SCH (09:41)
[2022-07-19] MEDS: FERROUS SULFATE PO SCH ×2 (09:41→20:33)
[2022-07-19] MEDS: LOPRESSOR PO SCH ×2 (09:42→20:34)
[2022-07-19] MEDS: PEPCID PO SCH (09:42)
[2022-07-19] MEDS: LIPITOR PO SCH (09:43)
--- NOTE | 2022-07-19 09:50 | PCM ---
Date of Service Date Seen by Provider: 07/19/22 Time Seen by Provider: 08:30 Admit Day/Time Admission Date: 07/18/22 Admission Time: 17:57 Reason for Admission Chief Complaint: ACUTE HYPERKALEMIA Hospital Provider Hospital Provider: DREW LINDSAY PA-C, [facility] [place] Phys[place] Primary Care Physician: MOY ROBINS History of Present Illness History of Present Illness: Patient is a 82 year old female from the [place] who was sent to ER for concern of low O2 reading. Upon arrival to ER patient's oxygen saturation was normal. ERP contacted nurse at [facility] who gave more information regarding patient being SOB recently. D dimer was elevated, bnp elevated. CXR normal. Unable to perform CTA due to renal function. K+ >5.5 as well. EKG showed a fib which is a new diagnosis for her. She was given 1 mg/kg of lovenox. She was admitted to obs on medsurg. Patient takes HCTZ, lasix, losartan, and potassium supplement all affecting potassium levels. Losartan and potassium supplement held. Repeat K+ this morning worse. Pt is pleasantly confused. She is oriented to self only, she read the date off the bulletin board. She is unsure of her pmhx but denies cardiac issues. Denies complaints today. No history of a fib found in records available. Case Discussed With Case Discussed With: Patient's case was discussed with the ER Physicians, Dr. Coronel. [facility] Medical History Adult failure to thrive R62.7 - Adult failure to thrive (ICD-10) Atherosclerosis of coronary artery I25.10 - Atherosclerotic heart disease of [place] coronary artery without angina pectoris (ICD-10) Cognitive communication deficit R41.841 - Cognitive communication deficit (ICD-10) DDD (degenerative disc disease), lumbar M51.36 - Other intervertebral disc degeneration, lumbar region (ICD-10) Diabetes mellitus E11.9 - Type 2 diabetes mellitus without complications (ICD-10) Diabetic polyneuropathy E11.42 - Type 2 diabetes mellitus with diabetic polyneuropathy (ICD-10) Hypertension I10 - Essential (primary) hypertension (ICD-10) Right knee pain M25.561 - Pain in right knee (ICD-10) Family History Other No known health problems Social History Smoking and tobacco status: Unknown if ever smoked Alcohol intake: unknown Substance use type: unknown Housing: snf USP: Yes History of recent travel: No Allergies Allergies Allergy/AdvReac Type Severity Reaction Status Date / Time No Known Allergies Allergy Verified 03/06/19 15:13 Current Medications Home Medications linagliptin 5 mg tablet (Tradjenta) 5 mg PO DAILY 04/08/17 [History Confirmed 07/18/22 Last Taken 07/24/17 08:00] acetaminophen 325 mg tablet 650 mg PO Q4H PRN Analgesia 07/24/17 [History Confirmed 07/18/22 Last Taken Unknown] ferrous sulfate 325 mg (65 mg iron) tablet 325 mg PO BID 07/24/17 [History Confirmed 07/18/22 Last Taken 07/24/17 08:00] furosemide 20 mg tablet 20 mg PO QDAC 08/14/17 [History Confirmed 07/18/22 Last Taken 08/13/17] metoprolol tartrate 50 mg tablet 50 mg PO BID 08/14/17 [History Confirmed 07/18/22 Last Taken Unknown] potassium chloride 10 mEq tablet,extended release (Klor-Con) 10 meq PO DAILY 08/14/17 [History Confirmed 07/18/22 Last Taken 08/13/17] atorvastatin 40 mg tablet 40 mg PO DAILY 10/07/18 [History Confirmed 07/18/22 Last Taken Unknown] famotidine 20 mg tablet (Pepcid) 20 mg PO QDAY 03/06/19 [History Confirmed 07/18/22 Last Taken Unknown] insulin aspart U-100 100 unit/mL subcutaneous solution (Novolog U-100 Insulin aspart) 15 unit subcut TID 03/06/19 [History Confirmed 07/18/22 Last Taken Unknown] insulin glargine 100 unit/mL (3 mL) subcutaneous pen (Basaglar KwikPen U-100 Insulin) 35 unit subcut QHS 03/06/19 [History Confirmed 07/18/22 Last Taken Unknown] magnesium hydroxide 400 mg/5 mL oral suspension (Milk of Magnesia) 30 ml PO QDAY 03/06/19 [History Confirmed 07/18/22 Last Taken Unknown] cranberry extract 425 mg capsule 425 mg PO BID 05/08/19 [History Confirmed 07/18/22 Last Taken Unknown] hydrochlorothiazide 12.5 mg capsule 12.5 mg PO QDAY 05/08/19 [History Confirmed 07/18/22 Last Taken Unknown] losartan 50 mg tablet 50 mg PO QDAY 05/08/19 [History Confirmed 07/18/22 Last Taken Unknown] potassium chloride 10 mEq tablet,extended release(part/cryst) 10 meq PO DAILY 07/18/22 [History Confirmed 07/18/22 Last Taken Unknown] Home Albuterol Sulfate (Albuterol Sulfate 0.083% Vial.Neb) 2.5 mg NEB RTQ6H [facility] Last Admin: 07/19/22 11:15 Dose: 2.5 mg Apixaban (Apixaban 5 Mg Tab) 2.5 mg PO BID [facility] Atorvastatin Calcium (Atorvastatin Calcium 20 Mg Tablet) 40 mg PO DAILY [facility] Last Admin: 07/19/22 09:43 Dose: 40 mg Azithromycin (Azithromycin 250 Mg Tablet) 500 mg PO DAILY [facility] Stop: 07/21/22 23:59 Last Admin: 07/19/22 09:40 Dose: 500 mg Famotidine (Famotidine 20 Mg Tablet) 20 mg PO Q48HR [facility] Last Admin: 07/19/22 09:42 Dose: 20 mg Ferrous Sulfate (Ferrous Sulfate 324 Mg Tablet.) 324 mg PO BID [facility] Last Admin: 07/19/22 09:41 Dose: 324 mg Insulin Glargine (Insulin Glargine,Hum.Rec.Anlog 100 Units/Ml) 35 unit SUBCUT BEDTIME [facility] Last Admin: 07/18/22 22:09 Dose: Not Given Insulin Human Lispro (Insulin Lispro 100 Unit/Ml (3 Ml) Vial) 0 unit SUBCUT PRN PRN; Protocol PRN Reason: Hyperglycemia Linagliptin (Linagliptin 5 Mg Tablet) 5 mg PO DAILY [facility] Last Admin: 07/19/22 09:41 Dose: 5 mg Methylprednisolone Sodium Succinate (Methylprednisolone Sod Succ/Pf 40 Mg/Ml Vial) 40 mg IVP Q8HR [facility] Metoprolol Tartrate (Metoprolol Tartrate 50 Mg Tablet) 50 mg PO BID [facility] Last Admin: 07/19/22 09:42 Dose: 50 mg Sodium Chloride (0.9% Sodium Chloride 10 Ml Disp.Syrin) 1 syr IVF PRN PRN PRN Reason: To flush IV Discontinued Medications Apixaban (Apixaban 5 Mg Tab) 2.5 mg PO BID [facility] Dextrose (Dextrose 50 % In Water 50 Ml Disp.Syrin) 50 ml IVP ONCE ONE Stop: 07/19/22 09:10 Last Admin: 07/19/22 09:45 Dose: 50 ml Enoxaparin Sodium (Enoxaparin Sodium 100 Mg/Ml Syr) 110 mg SUBCUT ONCE ONE Stop: 07/18/22 17:55 Last Admin: 07/18/22 18:46 Dose: Not Given Enoxaparin Sodium (Enoxaparin Sodium 100 Mg/Ml Syr) 100 mg SUBCUT ONCE STA Stop: 07/18/22 18:39 Last Admin: 07/18/22 18:41 Dose: 100 mg Furosemide (Furosemide Inj 40 Mg/4 Ml Vial) 40 mg IVP ONCE ONE Stop: 07/19/22 09:10 Last Admin: 07/19/22 09:44 Dose: 40 mg Sodium Chloride (Sodium Chloride) 1,000 mls @ 1,000 mls/hr IV BOLUS STA Stop: 07/18/22 15:42 Last Admin: 07/18/22 15:24 Dose: 1,000 mls/hr Sodium Chloride (Sodium Chloride) 1,000 mls @ 83 mls/hr IV .Q12H3M [facility] Last Admin: 07/19/22 09:25 Dose: Not Given Insulin Human Regular (Insulin Regular, Human 100 Unit/Ml (3ml) Vial) 10 unit IVP ONCE STA Stop: 07/19/22 09:10 Last Admin: 07/19/22 09:45 Dose: 10 unit Losartan Potassium (Losartan Potassium 25 Mg Tablet) 50 mg PO QDAY [facility] Sodium Polystyrene Sulfonate (Sodium Polystyrene Sulfonate 15 Gm/60 Ml Btl) 15 gm PO ONCE ONE Stop: 07/19/22 09:10 Last Admin: 07/19/22 09:44 Dose: 15 gm Review of Systems Constitutional: Reports Other (ROS limited due to patient's dementia ) Cardiovascular: Denies Chest pain or Chest Pressure Respiratory: Reports Cough and Wheeze Gastrointestinal: Denies Nausea, Vomiting or Abdominal pain Physical examination Most Recent Vital Signs: Most Recent Vital Signs Temperature 97.1 F L 07/19/22 05:15 Temperature Source Temporal Artery Scan 07/19/22 05:15 Temperature Source Infrared 07/18/22 13:49 Pulse Rate 75 07/19/22 05:15 Respiratory Rate 18 07/19/22 05:15 Blood Pressure 128/62 07/19/22 05:15 Blood Pressure Mean 84 07/19/22 05:15 Blood Pressure Left Arm 132/74 07/18/22 20:04 Blood Pressure Location Right Arm 07/19/22 05:15 Blood Pressure Position Supine 07/19/22 05:15 O2 Sat by Pulse Oximetry 98 07/19/22 05:15 Oxygen Delivery Method Room Air 07/19/22 05:15 Height 5 ft 6 in 07/18/22 20:04 Weight 242 lb 07/18/22 20:04 Telemetry Type Remote Telemetry 07/19/22 07:00 Telemetry Monitoring Continues 07/19/22 07:00 Irregular Telemetry Rate (Approximate) 80-90 BPM 07/19/22 07:00 Telemetry Heart Rate 70 08/02/21 13:39 EKG MS Interval 0.08 L 07/19/22 01:00 EKG QRS Interval 0.06 07/19/22 07:00 Telemetry Strip Reading Afib 07/19/22 07:00 Appearance: Positive Well-appearing, Well-nourished and Obese; Negative Alert and Oriented x3 (Oriented to self only. ) Skin: Positive [place], Warm and Good Color HEENT: Positive Normocephalic and Atraumatic Neck: Positive Supple and Midline Trachea Chest/Lungs: Positive Wheezes (mild exp wheezing river[place]. Coughing with exam. ) Heart: Positive Irregular Rhythm (rate controlled ) GI/: Positive Soft, Nontender and Bowel Sounds Normal Extremities: Positive Edema (trace edema rivera lower ext. ) Neurological: Negative Muscle Strength 5/5 in Upper and Lower Extremities Bilaterally (Generalized weakness ) Psychiatric: Positive Other (Oriented to self only. ) Labs This Visit Labs This Visit: Labs This Visit 07/18/22 07/18/22 07/18/22 14:10 15:06 15:12 WBC 10.99 H RBC 3.62 L Hgb 11.4 L Hct 35.7 L MCV 98.6 MCH 31.5 H MCHC 31.9 RDW Coeff of Yoc[place] 13.2 Plt Count 201 Immature Gran % (Auto) 1.2 Neut % (Auto) 58.3 Lymph % (Auto) 24.3 Stephenson % (Auto) 9.2 Eos % (Auto) 5.9 Baso % (Auto) 1.1 Neut # (Auto) 6.4 Lymph # (Auto) 2.7 Stephenson # (Auto) 1.0 Eos # (Auto) 0.7 Baso # (Auto) 0.1 Immature Gran # (Auto) 0.1 Sodium 138.8 Potassium 5.86 H Chloride 104.7 Carbon Dioxide 25.6 Anion Gap 14.36 BUN 46.6 H Creatinine 1.86 H Estimated GFR (MDRD) 26.00 BUN/Creatinine Ratio 25.05 Glucose 132.6 H Lactic Acid 1.66 Calcium 8.97 Total Bilirubin 0.51 AST 30.8 ALT 21.0 Alkaline Phosphatase 111.0 Troponin I 0.023 NT-Pro-B Natriuret Pep 1600 H Total Protein 7.70 Albumin 4.19 Globulin 3.51 Albumin/Globulin Ratio 1.19 Lipase 77.2 D-Dimer 1203.80 H Urine Color Urine Clarity Urine pH Ur Specific [place] Urine Protein Urine Glucose (UA) Urine Ketones Urine Blood Urine Nitrite Urine Bilirubin Urine Urobilinogen Ur Leukocyte Esterase Urine Microscopic RBC Ur Squamous Epith Cells SARS CoV-2 RNA Rapid YARON Negative 07/18/22 07/18/22 07/19/22 16:57 18:31 04:54 WBC 9.49 RBC 3.49 L Hgb 10.9 L Hct 34.3 L MCV 98.3 MCH 31.2 H MCHC 31.8 RDW Coeff of Yocasta 13.3 Plt Count 187 Immature Gran % (Auto) 1.2 Neut % (Auto) 52.4 Lymph % (Auto) 26.6 Stephenson % (Auto) 11.3 H Eos % (Auto) 7.3 H Baso % (Auto) 1.2 Neut # (Auto) 5.0 Lymph # (Auto) 2.5 Stephenson # (Auto) 1.1 Eos # (Auto) 0.7 Baso # (Auto) 0.1 Immature Gran # (Auto) 0.1 Sodium 139.7 139.5 Potassium 5.56 H 5.93 H Chloride 107.5 H 107.3 H Carbon Dioxide 27.8 28.1 Anion Gap 9.96 10.03 BUN 46.8 H 47.1 H Creatinine 1.88 H 1.99 H Estimated GFR (MDRD) 26.00 24.00 BUN/Creatinine Ratio 24.89 23.66 Glucose 100.4 134.6 H Lactic Acid Calcium 8.76 8.63 Total Bilirubin 0.43 AST 33.3 ALT 19.1 Alkaline Phosphatase 96.6 Troponin I 0.024 NT-Pro-B Natriuret Pep Total Protein 7.22 Albumin 3.87 Globulin 3.35 Albumin/Globulin Ratio 1.15 Lipase D-Dimer Urine Color Yellow Urine Clarity Clear Urine pH 6.0 Ur Specific [place] 1.010 Urine Protein Negative Urine Glucose (UA) Negative Urine Ketones Negative Urine Blood Trace-lysed Urine Nitrite Negative Urine Bilirubin Negative Urine Urobilinogen 0.2 Ur Leukocyte Esterase Trace H Urine Microscopic RBC 0-2 Ur Squamous Epith Cells Not present SARS CoV-2 RNA Rapid YARON Imaging Imagining: EXAM: CHEST RADIOGRAPH TECHNIQUE: Two views. Frontal and lateral. HISTORY: No COMPARISON: 02/08/2022 FINDINGS: There is cardiomegaly. Pulmonary vasculature and mediastinal contours are otherwise intact. No focal infiltrate, effusion, or pneumothorax is identified. IMPRESSION: 1. Cardiomegaly. No acute cardiopulmonary disease. EXAM: BILATERAL LOWER EXTREMITY DEEP VENOUS ULTRASOUND WITH DOPPLER IMAGING HISTORY: Elevated D-dimer. TECHNIQUE: Wall-scale ultrasound with compression maneuvers and color and spectral Doppler ultrasound at rest and with augmentation of the veins was performed. Images were obtained and stored in a permanent archive. COMPARISON: None FINDINGS: RIGHT LOWER EXTREMITY: Common Femoral Vein: Normal compression. Normal flow on color Doppler images. Normal response to augmentation. Deep Femoral Vein: Normal compression. Normal flow on color Doppler images. Normal response to augmentation. Femoral Vein: Non-visualization of the mid superficial femoral vein. Popliteal Vein: Normal compression. Normal flow on color Doppler images. Normal response to augmentation. Peroneal Vein: Normal compression. Normal flow on color Doppler images. Posterior Tibial Vein: Normal compression. Normal flow on color Doppler images. Anterior Tibial Vein: Not visualized. . Greater Saphenous Vein (Superficial): Normal compression. Normal flow on color Doppler images. Other: No reflux. LEFT LOWER EXTREMITY: Common Femoral Vein: Normal compression. Normal flow on color Doppler images. Normal response to augmentation. Deep Femoral Vein: Normal compression. Normal flow on color Doppler images. Normal response to augmentation. Femoral Vein: Non-visualization of the mid superficial femoral vein Popliteal Vein: Not visualized Peroneal Vein: Not visualized . Posterior Tibial Vein: Normal compression. Normal flow on color Doppler images. Anterior Tibial Vein: Not visualized. . Greater Saphenous Vein (Superficial): Normal compression. Normal flow on color Doppler images. Other: No reflux. IMPRESSION: No deep venous thrombosis (DVT) in the visualized portion of the bilateral lower extremities. No superficial venous thrombosis (SVT) in the visualized aspect of the bilateral lower extremities at the levels examined. Review Statement Review Statement: I have independently reviewed and interpreted the labs/EKGs/imaging that were ordered by the ER provider. I have reviewed all outside records that are available currently in our EMR including imaging/notes/labs from previous visits. Plan Plan: A&P: 1. Acute hyperkalemia - Worsened overnight. Give 10U insulin IV with amp of d50. Monitor BS q1hr x6 hours, then ACHS. Will also give one dose of kayexalate and one dose of lasix 40 mg IV. Hold oral lasix today. Hold losartan and potassium supplement. Will also hold HCTZ at this time due to other measures given. Repeat BMP at 1400. Tele. 2. New onset a fib - Rate controlled. Will start eliquis 2.5 mg bid due to age and elevated Cr. Echo ordered. Check mag and tsh. Continue metoprolol, she is rate controlled. 3. Elevated d dimer - Unable to perform CTA due to renal function. Will check VQ scan in AM, delayed due to only having nuc med available tomorrow. 4. Acute bronchitis - CXR negative. Patient coughing and wheezing. Start solumedrol 40 mg IV q8hrs and azithromycin 500 mg PO. Will order albuterol nebs q6hrs as well. 5. Chronic kidney disease, stage IV - Chronic, stable. Monitor closely with lasix use. 6. Hypertension - chronic stable. Continue metoprolol. Hold losartan and hctz as above. 7. DMT2, insulin dependent - Chronic, stable. Continue home insulin. Diabetic diet. 8. Hyperlipidemia - chronic stable. Continue home statin. DVT Prophylaxis: Time Spent: Greater than 80 minutes spent with patient, 50% of the time spent with this patient was devoted to counseling and coordination of care. [facility] minutes spent discussing advance care planning. DNR Admit to: Obs Discussed Plan of Care with Dr. Gavin Greenwood. Medications Medication Orders: Medications Ordered Category Date Time Status 0.9 % Sodium Chloride [Saline Flush] MEDS 07/18/22 13:53 Active 1 syr IVF PRN PRN Atorvastatin Calcium [Lipitor] MEDS 07/19/22 09:00 Active 40 mg PO DAILY Azithromycin [Zithromax] MEDS 07/19/22 09:30 Active 500 mg PO DAILY Famotidine [Pepcid] MEDS 07/19/22 09:00 Active 20 mg PO Q48HR Ferrous Sulfate MEDS 07/18/22 21:00 Active 324 mg PO BID Insulin Glargine,Hum.rec.anlog [Lantus] MEDS 07/18/22 20:00 Active 35 unit SUBCUT BEDTIME Insulin Lispro [Humalog] MEDS 07/18/22 20:02 Active See Protocol SUBCUT PRN PRN Linagliptin [Tradjenta] MEDS 07/19/22 09:00 Active 5 mg PO DAILY Methylprednisolone Sod Succ/Pf [Solu-Medrol 40 mg] MEDS 07/19/22 13:00 Active 40 mg IVP Q8HR Metoprolol Tartrate [Lopressor] MEDS 07/18/22 21:00 Active 50 mg PO BID
[2022-07-19 10:34] LABS: MAGNESIUM 2.2 mg/dL (1.6-2.3)
[2022-07-19] MEDS ORDERED: ELIQUIS PO SCH ×2 (11:00→21:00)
[2022-07-19 11:05] LABS: THYROID STIMULATING HORMONE 2.25 uIU/L (0.465-4.68)
[2022-07-19] MEDS: ALBUTEROL 0.083% NEB NEB SCH ×3 (11:15→23:28)
[2022-07-19] MEDS: SOLU-MEDROL 40 MG IVP SCH ×2 (13:26→20:34)
[2022-07-19 14:22] LABS: BLOOD UREA NITROGEN 47.2 mg/dL (7-17); CALCIUM 7.87 mg/dL (8.4-10.2); CARBON DIOXIDE 25.3 mmol/L (22-30.0); CREATININE 1.83 mg/dL (0.60-1.30); GLUCOSE 262.2 mg/dL (74-106); POTASSIUM 5.97 mmol/L (3.5-5.1); SODIUM 133.6 mmol/L (134.5-145)
[2022-07-19] MEDS: HUMALOG SUBCUT PRN (17:16)
[2022-07-19 18:52] LABS: BLOOD UREA NITROGEN 47.3 mg/dL (7-17); CALCIUM 8.23 mg/dL (8.4-10.2); CHLORIDE 101.4 mmol/L (98-107); CREATININE 1.94 mg/dL (0.60-1.30); GLUCOSE 395.2 mg/dL (74-106); POTASSIUM 5.49 mmol/L (3.5-5.1); SODIUM 133.8 mmol/L (134.5-145)
[2022-07-19] MEDS ORDERED: HUMALOG SUBCUT ONE (20:08)
[2022-07-19] MEDS: LANTUS SUBCUT SCH (20:37)
[2022-07-19] MEDS ORDERED: TYLENOL PO PRN (21:30)
[2022-07-19] MEDS: ZOFRAN 4 MG/2 ML IVP PRN (21:53)
--- NOTE | 2022-07-19 22:49 | PCM.PROG ---
Nurse called at 9:26 PM stating patient mentioned nausea, shoulder pain, and some dental/gum pain. Patient is pleasantly confused at baseline. Trop and EKG ordered. Repeated EKG about 1 hour later. Reviewed EKGs with Dr. Christiano Greenwood. Appears to be early repolarization, no stemi. Trop normal. Will trend. Patient given tylenol and zofran with improvement of symptoms. Discussed plan of care w [facility] nursing staff, will call through night if trop is abnormal or with any changes in patient condition. MARK CHAUDHRY
[2022-07-20] MEDS: ALBUTEROL 0.083% NEB NEB SCH ×4 (05:14→23:00)
[2022-07-20] MEDS: SOLU-MEDROL 40 MG IVP SCH ×2 (05:16→14:06)
[2022-07-20 06:08] LABS: BASOPHILS # (AUTO) 0.1 K/uL (0-0.2); BASOPHILS % (AUTO) 0.3 % (0.0-3.0); EOSINOPHILS % (AUTO) 0.1 % (0.0-7.0); HEMATOCRIT 32.7 % (37.0-47.0); HEMOGLOBIN 10.5 g/dl (12.0-16.0); IMMATURE GRANULOCYTE # (AUTO) 0.3 (0.0-1.0); IMMATURE GRANULOCYTE % (AUTO) 2.2 % (0.0-5.0); LYMPHOCYTES # (AUTO) 0.8 K/uL (0.60-3.4); LYMPHOCYTES % (AUTO) 5.6 (10.0-50.0); MEAN CORPUSCULAR HEMOGLOBIN 31.4 pg (27.0-31.0); MEAN CORPUSCULAR HGB CONC 32.1 (31.8-35.4); MEAN CORPUSCULAR VOLUME 97.9 fl (81.0-99.0); MONOCYTES # (AUTO) 0.2 K/uL (0.4-2.0); MONOCYTES % (AUTO) 1.4 (0-10); NEUTROPHILS # (AUTO) 12.9 K/ul (2.0-6.9); NEUTROPHILS % (AUTO) 90.4 % (42.2-75.2); PLATELET COUNT 193 10^3/uL (140-440); RED BLOOD COUNT 3.34 10^6/ul (4.20-5.40)
[2022-07-20 06:20] LABS: ALBUMIN 3.9 g/dL (3.5-5.0); ALKALINE PHOSPHATASE 107.7 U/L (53-141); ASPARTATE AMINO TRANSFERASE 43.1 U/L (14-36); BILIRUBIN,TOTAL 0.4 mg/dL (0.2-1.3); BLOOD UREA NITROGEN 54.1 mg/dL (7-17); CALCIUM 8.16 mg/dL (8.4-10.2); CARBON DIOXIDE 23.3 mmol/L (22-30.0); CHLORIDE 101.2 mmol/L (98-107); CREATININE 2.05 mg/dL (0.60-1.30); SODIUM 132.6 mmol/L (134.5-145); TOTAL PROTEIN 7.08 g/dL (6.3-8.2)
[2022-07-20] MEDS ORDERED: HUMALOG SUBCUT ONE ×2 (06:38→14:23)
[2022-07-20] MEDS ORDERED: HUMULIN R IV ONE (06:42)
[2022-07-20] MEDS ORDERED: HUMULIN R IVP STA (06:43)
[2022-07-20] MEDS ORDERED: ASPIRIN EC PO STA (06:43)
[2022-07-20] MEDS ORDERED: CALCIUM GLUCONATE IV STA (06:46)
[2022-07-20] MEDS ORDERED: SODIUM CHLORIDE IV STA (06:46)
[2022-07-20 06:47] LABS: ALANINE AMINOTRANSFERASE 27.1 U/L (0-35); POTASSIUM 6.18 mmol/L (3.5-5.1)
[2022-07-20 06:49] LABS: TROPONIN I 3.14 ng/ml (0.0000-0.120)
[2022-07-20 07:58] LABS: PARTIAL THROMBOPLASTIN TIME 25.9 SEC (23.9-40.0)
[2022-07-20] MEDS: LIPITOR PO SCH (08:17)
[2022-07-20] MEDS: FERROUS SULFATE PO SCH ×2 (08:17→21:45)
[2022-07-20] MEDS: ZITHROMAX PO SCH (08:18)
[2022-07-20] MEDS: TRADJENTA PO SCH (08:18)
[2022-07-20] MEDS: HYDROCHLOROTHIAZIDE PO SCH (08:18)
[2022-07-20] MEDS: LOPRESSOR PO SCH ×2 (08:18→21:45)
[2022-07-20] MEDS: HEPARIN 25,000 UNIT/250 ML NACL 25,000 UNIT/250 ML BAG IV SCH (09:05)
--- NOTE | 2022-07-20 09:12 | PCM.PROG ---
Date/Time Seen Date Seen by Provider: 07/20/22 Time Seen by Provider: 08:00 Provider Provider: DREW LINDSAY PA-C, [facility] Chief Complaint Chief Complaint: ACUTE HYPERKALEMIA Subjective Subjective: Patient had nausea, shoulder pain, and gum pain last night at 930 PM. (See other progress note). EKG and troponin ordered. EKGs reviewed by myself and Dr. Gavin Greenwood. Patient's symptoms improved with zofran and tylenol. Her trop was initially normal, then 0.2, and this morning it is 3. Patient denies complaints today but is also a poor historian. Spoke with her son, Mj, who is her POA via phone. Discussed her medical condition and treatment options including conservative measures vs transferring for intervention. He prefers to keep her here and treat her conservatively/medically manage her symptoms. He understands her condition could worsen without a cardiac cath/stent/etc. 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 Discussed risks vs benefits of heparin including brain bleed and he understands. He would like to proceed with heparin. Objective Appearance: Positive Well-appearing, Well-nourished, No Apparent Distress and Other (Oriented to self and place. However, doesn't recall her son's name or information about him. ) Chest/Lungs: Positive Symmetrical With Equal Breath Sounds, Clear to Auscultation Bilaterally and Wheezes (Improved bilaterally ) Heart: Positive RRR and Pulses Normal GI/: Positive Soft, Nontender and Bowel Sounds Normal Musculoskeletal: Negative Other (+Generalized weakness ) Neurological: Positive Alert; Negative Oriented (Oriented to self and place. ) Vital Signs Vital Signs: Vital Signs: Last 24 Hours 07/19/22 10:00 07/19/22 13:00 07/19/22 14:00 Temperature 97 F L 98 F Temperature Source Temporal Artery Scan Oral Pulse Rate 87 72 Respiratory Rate 18 20 Blood Pressure 112/67 116/66 Blood Pressure Mean 82 82 Blood Pressure Location Right Arm Right Arm Blood Pressure Position Supine O2 Sat by Pulse Oximetry 92 L 99 Oxygen Delivery Method Room Air Room Air Telemetry Type Remote Telemetry Telemetry Monitoring Continues Telemetry Heart Rate 71 EKG SD Interval 0.2 EKG QRS Interval 0.02 L Telemetry Strip Reading SR 07/19/22 18:00 07/19/22 19:00 07/19/22 19:30 Temperature 96.8 F L Temperature Source Temporal Artery Scan Pulse Rate 92 Respiratory Rate 16 20 Blood Pressure 141/86 H Blood Pressure Mean 104 Blood Pressure Location Right Arm Blood Pressure Position Sitting O2 Sat by Pulse Oximetry 95 Oxygen Delivery Method Room Air Room Air Telemetry Type Remote Telemetry Telemetry Monitoring Continues Telemetry Heart Rate 92 EKG SD Interval 0.22 H EKG QRS Interval 0.06 Telemetry Strip Reading SR with 1st degree AVB 07/19/22 21:21 07/20/22 01:00 07/20/22 02:00 Temperature 97.9 F 97.1 F L Temperature Source Oral Oral Pulse Rate 93 90 Respiratory Rate 20 18 Blood Pressure 162/86 H 126/80 Blood Pressure Mean 111 95 Blood Pressure Location Right Arm Right Arm Blood Pressure Position Supine Supine O2 Sat by Pulse Oximetry 98 96 Oxygen Delivery Method Room Air Room Air Telemetry Type Remote Telemetry Telemetry Monitoring Continues Telemetry Heart Rate 98 EKG SD Interval 0.26 H EKG QRS Interval 0.06 Telemetry Strip Reading SR WITH 1ST DEGREE AVB 07/20/22 05:09 07/20/22 07:00 Temperature 97.1 F L Temperature Source Temporal Artery Scan Pulse Rate 91 Respiratory Rate 18 Blood Pressure 105/57 L Blood Pressure Mean 73 Blood Pressure Location Right Arm Blood Pressure Position Supine O2 Sat by Pulse Oximetry 94 L Oxygen Delivery Method Room Air Telemetry Type Remote Telemetry Telemetry Monitoring Continues Telemetry Heart Rate 84 EKG SD Interval 0.31 H EKG QRS Interval 0.05 L Telemetry Strip Reading SR with 1st Degree AVB Lab Results Lab Results: Lab Results: Last 24 Hours 07/20/22 07/20/22 07/19/22 06:03 00:45 21:43 WBC 14.30 H RBC 3.34 L Hgb 10.5 L Hct 32.7 L MCV 97.9 MCH 31.4 H MCHC 32.1 RDW Coeff of Yocasta 13.0 Plt Count 193 Immature Gran % (Auto) 2.2 Neut % (Auto) 90.4 H Lymph % (Auto) 5.6 L [place] % (Auto) 1.4 Eos % (Auto) 0.1 Baso % (Auto) 0.3 Neut # (Auto) 12.9 H Lymph # (Auto) 0.8 [place] # (Auto) 0.2 L Eos # (Auto) 0.0 Baso # (Auto) 0.1 Immature Gran # (Auto) 0.3 PT 11.0 INR 1.06 APTT 25.9 Sodium 132.6 L Potassium 6.18 H* Chloride 101.2 Carbon Dioxide 23.3 Anion Gap 14.28 BUN 54.1 H Creatinine 2.05 H Estimated GFR (MDRD) 23.00 BUN/Creatinine Ratio 26.39 Glucose 432.0 H Calcium 8.16 L Magnesium Total Bilirubin 0.40 AST 43.1 H ALT 27.1 Alkaline Phosphatase 107.7 Troponin I 3.140 H* 0.265 H 0.028 Total Protein 7.08 Albumin 3.90 Globulin 3.18 Albumin/Globulin Ratio 1.22 TSH 07/19/22 07/19/22 07/19/22 18:39 14:02 04:54 WBC RBC Hgb Hct MCV MCH MCHC RDW Coeff of Yocasta Plt Count Immature Gran % (Auto) Neut % (Auto) Lymph % (Auto) [place] % (Auto) Eos % (Auto) Baso % (Auto) Neut # (Auto) Lymph # (Auto) [place] # (Auto) Eos # (Auto) Baso # (Auto) Immature Gran # (Auto) PT INR APTT Sodium 133.8 L 133.6 L Potassium 5.49 H 5.97 H Chloride 101.4 102.0 Carbon Dioxide 24.0 25.3 Anion Gap 13.89 12.27 BUN 47.3 H 47.2 H Creatinine 1.94 H 1.83 H Estimated GFR (MDRD) 25.00 26.00 BUN/Creatinine Ratio 24.38 25.79 Glucose 395.2 H D 262.2 H D Calcium 8.23 L 7.87 L Magnesium 2.20 Total Bilirubin AST ALT Alkaline Phosphatase Troponin I Total Protein Albumin Globulin Albumin/Globulin Ratio TSH 2.250 Additional Comments Additional Comments: I have independently reviewed and interpreted the labs/EKGs/imaging ordered during this hospital stay. I have reviewed outside records that are available in our EMR that pertain to medical stay including imaging/notes/labs from previous visits. Active Medications Active Medications: Medications Generic Name Dose Route Start Last Admin Trade Name Freq PRN Reason Stop Dose Admin Acetaminophen 650 mg 07/19/22 21:30 07/19/22 21:53 Acetaminophen 325 Mg Tablet PO 650 mg Q6H PRN Administration Pain Albuterol Sulfate 2.5 mg 07/19/22 12:00 07/20/22 05:14 Albuterol Sulfate 0.083% Vial.Neb NEB 2.5 mg RTQ6H ROSALIND Administration Atorvastatin Calcium 40 mg 07/19/22 09:00 07/20/22 08:17 Atorvastatin Calcium 20 Mg Tablet PO 40 mg DAILY ROSALIND Administration Azithromycin 500 mg 07/19/22 09:30 07/20/22 08:18 Azithromycin 250 Mg Tablet PO 07/21/22 23:59 500 mg DAILY ROSALIND Administration Famotidine 20 mg 07/19/22 09:00 07/19/22 09:42 Famotidine 20 Mg Tablet PO 20 mg Q48HR ROSALIND Administration Ferrous Sulfate 324 mg 07/18/22 21:00 07/20/22 08:17 Ferrous Sulfate 324 Mg Tablet.Dr PO 324 mg BID ROSALIND Administration Hydrochlorothiazide 12.5 mg 07/20/22 09:00 07/20/22 08:18 Hydrochlorothiazide 25 Mg Tablet PO 12.5 mg DAILY ROSALIND Administration Heparin Sodium/Sodium Chloride 25,000 unit in 250 mls @ 13.172 mls/hr 07/20/22 08:30 Heparin 25,000 Unit/250 Ml Nacl IV TITRATION ROSALIND Protocol 12 UNIT/KG/HR Insulin Glargine 35 unit 07/18/22 20:00 07/19/22 20:37 Insulin Glargine,Hum.Rec.Anlog 100 Units/Ml SUBCUT 35 unit BEDTIME ROSALIND Administration Insulin Human Lispro 0 unit 07/18/22 20:02 07/19/22 17:16 Insulin Lispro 100 Unit/Ml (3 Ml) Vial SUBCUT 8 unit PRN PRN Administration Hyperglycemia Protocol Linagliptin 5 mg 07/19/22 09:00 07/20/22 08:18 Linagliptin 5 Mg Tablet PO 5 mg DAILY ROSALIND Administration Methylprednisolone Sodium Succinate 40 mg 07/19/22 13:00 07/20/22 05:16 Methylprednisolone Sod Succ/Pf 40 Mg/Ml Vial IVP 40 mg Q8HR ROSALIND Administration Metoprolol Tartrate 50 mg 07/18/22 21:00 07/20/22 08:18 Metoprolol Tartrate 50 Mg Tablet PO 50 mg BID ROSALIND Administration Ondansetron HCl 4 mg 07/19/22 21:27 07/19/22 21:53 Ondansetron Hcl/Pf 4 Mg/2 Ml Sdv IVP 4 mg Q6H PRN Administration Nausea / Vomiting Sodium Chloride 1 syr 07/18/22 13:53 07/19/22 13:26 0.9% Sodium Chloride 10 Ml Disp.Syrin IVF 1 syr PRN PRN Administration To flush IV Sodium Chloride 1 syr 07/19/22 21:00 07/20/22 05:15 0.9% Sodium Chloride 10 Ml Disp.Syrin IVF 1 syr Q8HR ROSALIND Administration Plan Plan: A&P: 1. NSTEMI - Treating conservatively per son/POA's wishes. Heparin drip x48 hours . PTT q6hrs and titrate to therapeutic range. Monitor for signs of bleeding. Hold eliquis. 2. Acute hyperkalemia - Worsened overnight. Give 10U insulin IV. Monitor BS q1hr x6 hours, then ACHS. Will also give another dose of kayexalate. Calcium gluconate 1 gm ordered. Hold losartan and potassium supplement. Tele. Repeat BMP at 1400. 2. New onset a fib - Rate controlled. Continue metoprolol, she is rate controlled. Echo performed with LVH and EF in 40s. Hold eliquis while on heparin drip. 3. Elevated d dimer - Unable to perform CTA due to renal function. Will defer VQ scan initially planned in setting of NSTEMI. 4. Acute bronchitis - CXR negative. Patient coughing and wheezing. Continue solumedrol 40 mg IV q8hrs and azithromycin 500 mg PO. Continue albuterol nebs q6hrs as well. 5. Chronic kidney disease, stage IV - Chronic, stable. Monitor closely. 6. Hypertension - chronic stable. Continue metoprolol. Hold losartan as above. 7. DMT2, insulin dependent - Chronic, stable. Continue home insulin. Diabetic diet. SS insulin. 8. Hyperlipidemia - chronic stable. Continue home statin. DVT prophylaxis: Heparin Made inpatient today. Discussed in detail with Dr. Christiano Greenwood, nursing staff, and patient's family. Review Statement Review Statement: I have personally discussed and reviewed the patient's visit/currently labs/imaging/decision making with Dr. Greenwood, my supervising attending. Greater that 50 minutes spent with patient, 50% of the time spent with this patient was devoted to counseling and coordination of care. Critical Care Note Critical Care Note Total Critical Care Time (mins): 40 Comments: Patient had nausea, shoulder pain, and gum pain last night at 930 PM. (See other progress note). EKG and troponin ordered. EKGs reviewed by myself and Dr. Gavin Greenwood. Patient's symptoms improved with zofran and tylenol. Her trop was initially normal, then 0.2, and this morning it is 3. Patient denies complaints today but is also a poor historian. Spoke with her son, Mj, who is her POA via phone. Discussed her medical condition and treatment options including conservative measures vs transferring for intervention. He prefers to keep her here and treat her conservatively/medically manage her symptoms. Heparin drip ordered. Will require ptt q6hrs. Her potassium also worsened to 6.1, requiring IV insulin, kayexalate, and IV calcium gluconate. Will repeat BMP to monitor. Spoke with Dr. Christiano Greenwood multiple times regarding patient. Updated nursing staff on plan multiple times. Organ systems at risk include cardiac, pulmonary, and neuro. Critical care time included speaking to attending, family, nursing staff, reviewing, interpreting, and ordering more labs and EKGs.
[2022-07-20] MEDS ORDERED: KAYEXALATE SUSP PO STA (09:37)
[2022-07-20] MEDS: ZOFRAN 4 MG/2 ML IVP PRN ×2 (12:01→18:02)
[2022-07-20] MEDS: HUMALOG SUBCUT PRN (12:24)
[2022-07-20 15:26] LABS: BLOOD UREA NITROGEN 56.5 mg/dL (7-17); CALCIUM 7.93 mg/dL (8.4-10.2); CARBON DIOXIDE 22.9 mmol/L (22-30.0); CREATININE 1.93 mg/dL (0.60-1.30); SODIUM 130.4 mmol/L (134.5-145)
[2022-07-20 15:31] LABS: POTASSIUM 5.98 mmol/L (3.5-5.1)
[2022-07-20 15:32] LABS: CHLORIDE 97.6 mmol/L (98-107)
[2022-07-20 15:37] LABS: GLUCOSE 529.9 mg/dL (74-106)
[2022-07-20] MEDS: MYXREDLIN 100 UNIT/100 ML BAG 100 UNIT/100 ML PLAST..BAG IV SCH ×3 (16:52→21:10)
[2022-07-20 21:18] LABS: CALCIUM 8.3 mg/dL (8.4-10.2); CREATININE 2.1 mg/dL (0.60-1.30)
[2022-07-20] MEDS: LANTUS SUBCUT SCH (21:45)
[2022-07-21] MEDS: HEPARIN 25,000 UNIT/250 ML NACL 25,000 UNIT/250 ML BAG IV SCH ×2 (03:42→08:30)
[2022-07-21 04:05] LABS: ALANINE AMINOTRANSFERASE 26.1 U/L (0-35); ALBUMIN 3.96 g/dL (3.5-5.0); ALKALINE PHOSPHATASE 107.9 U/L (53-141); ASPARTATE AMINO TRANSFERASE 54.6 U/L (14-36); BILIRUBIN,TOTAL 0.42 mg/dL (0.2-1.3); BLOOD UREA NITROGEN 58.5 mg/dL (7-17); CALCIUM 8.47 mg/dL (8.4-10.2); CARBON DIOXIDE 26.1 mmol/L (22-30.0); CHLORIDE 99.9 mmol/L (98-107); CREATININE 1.92 mg/dL (0.60-1.30); GLUCOSE 363.7 mg/dL (74-106); POTASSIUM 5.66 mmol/L (3.5-5.1); SODIUM 133.8 mmol/L (134.5-145); TOTAL PROTEIN 7.16 g/dL (6.3-8.2)
[2022-07-21 04:16] LABS: BASOPHILS % (AUTO) 0.1 % (0.0-3.0); EOSINOPHILS # (AUTO) 0.1 K/ul (0.0-0.7); EOSINOPHILS % (AUTO) 0.6 % (0.0-7.0); HEMATOCRIT 31.9 % (37.0-47.0); HEMOGLOBIN 10.4 g/dl (12.0-16.0); IMMATURE GRANULOCYTE # (AUTO) 0.8 (0.0-1.0); IMMATURE GRANULOCYTE % (AUTO) 3.8 % (0.0-5.0); LYMPHOCYTES # (AUTO) 0.9 K/uL (0.60-3.4); LYMPHOCYTES % (AUTO) 4.1 (10.0-50.0); MEAN CORPUSCULAR HEMOGLOBIN 31.6 pg (27.0-31.0); MEAN CORPUSCULAR HGB CONC 32.6 (31.8-35.4); MONOCYTES # (AUTO) 1.2 K/uL (0.4-2.0); MONOCYTES % (AUTO) 5.3 (0-10); NEUTROPHILS # (AUTO) 18.7 K/ul (2.0-6.9); NEUTROPHILS % (AUTO) 86.1 % (42.2-75.2); PLATELET COUNT 199 10^3/uL (140-440); RDW COEFFICIENT OF VARIATION 13.2 % (11.6-14.8); RED BLOOD COUNT 3.29 10^6/ul (4.20-5.40)
[2022-07-21] MEDS: ALBUTEROL 0.083% NEB NEB SCH ×4 (04:50→23:25)
[2022-07-21] MEDS: HUMALOG SUBCUT PRN ×4 (06:29→20:16)
[2022-07-21] MEDS ORDERED: CALCIUM GLUCONATE IV ONE (08:11)
[2022-07-21] MEDS ORDERED: LASIX IVP ONE (08:11)
[2022-07-21] MEDS ORDERED: SODIUM CHLORIDE IV ONE (08:11)
[2022-07-21] MEDS: ASPIRIN CHEWABLE PO SCH (09:13)
[2022-07-21] MEDS: HYDROCHLOROTHIAZIDE PO SCH (09:14)
[2022-07-21] MEDS: LIPITOR PO SCH (09:14)
[2022-07-21] MEDS: TRADJENTA PO SCH (09:14)
[2022-07-21] MEDS: LOPRESSOR PO SCH ×2 (09:14→20:15)
[2022-07-21] MEDS: FERROUS SULFATE PO SCH ×2 (09:16→20:15)
[2022-07-21] MEDS: ZITHROMAX PO SCH (09:16)
[2022-07-21] MEDS ORDERED: HUMULIN R IVP STA (09:50)
[2022-07-21] MEDS: PEPCID PO SCH (10:02)
--- NOTE | 2022-07-21 11:07 | PCM.PROG ---
Date/Time Seen Date Seen by Provider: 07/21/22 Time Seen by Provider: 09:15 Provider Provider: DREW LINDSAY [facility]-C, [facility] Chief Complaint Chief Complaint: ACUTE HYPERKALEMIA Subjective Subjective: Patient sitting up in bed in good spirits. She is eating pancakes and really enjoying breakfast, lifted up the plate to drink the rest of the syrup. She denies chest pain or nausea at this time. Did require zofran yesterday due to nausea. Was placed on insulin drip yesterday afternoon until about 10 pm for glucose and potassium, both improved. K+ worsened again today. Objective Appearance: Positive Well-appearing, Well-nourished, No Apparent Distress and Other (Alert, oriented to person and place. ) Chest/Lungs: Positive Symmetrical With Equal Breath Sounds and Wheezes (Mild rivera, improved since admission. ) Heart: Positive RRR GI/: Positive Soft, Nontender and Bowel Sounds Normal Neurological: Positive Motor intact, Cranial Nerves Intact, Alert and Other (+Generalized weakness. ); Negative Focal Deficit Vital Signs Vital Signs: Vital Signs: Last 24 Hours 07/20/22 14:00 07/20/22 13:00 07/20/22 17:02 Temperature 98.4 F Temperature Source Oral Pulse Rate 93 Pulse Rate [Apical] Respiratory Rate 20 Blood Pressure 126/76 Blood Pressure Mean 92 Blood Pressure Location Right Arm Blood Pressure Position Supine O2 Sat by Pulse Oximetry 94 L 96 Oxygen Delivery Method Room Air Nasal Cannula Oxygen Flow Rate 2 Telemetry Type Remote Telemetry Telemetry Monitoring Continues Irregular Telemetry Rate (Approximate) Telemetry Heart Rate 91 Telemetry SPO2 EKG MA Interval 0.28 H EKG QRS Interval 0.07 Telemetry Strip Reading SR with 1st Degree AVB 07/20/22 17:27 07/20/22 20:00 07/20/22 19:00 Temperature 98.8 F Temperature Source Oral Pulse Rate 91 Pulse Rate [Apical] Respiratory Rate 20 Blood Pressure 106/70 Blood Pressure Mean 82 Blood Pressure Location Right Arm Blood Pressure Position Supine O2 Sat by Pulse Oximetry 97 98 Oxygen Delivery Method Nasal Cannula Nasal Cannula Oxygen Flow Rate 2 2 Telemetry Type Remote Telemetry Telemetry Monitoring Continues Irregular Telemetry Rate (Approximate) 90-100 BPM Telemetry Heart Rate 92 Telemetry SPO2 98 EKG MA Interval 0.28 H EKG QRS Interval 0.06 Telemetry Strip Reading 1st degree AV block 05/19/23 20:00 07/20/22 22:00 07/21/22 00:15 Temperature 97.4 F L Temperature Source Temporal Artery Scan Pulse Rate 86 84 Pulse Rate [Apical] 92 Respiratory Rate 19 19 20 Blood Pressure 113/59 L 133/60 Blood Pressure Mean 77 84 Blood Pressure Location Left Arm Right Arm Blood Pressure Position Supine Supine O2 Sat by Pulse Oximetry 98 98 Oxygen Delivery Method Nasal Cannula Nasal Cannula Nasal Cannula Oxygen Flow Rate 2 2 2 Telemetry Type Telemetry Monitoring Irregular Telemetry Rate (Approximate) Telemetry Heart Rate Telemetry SPO2 EKG MA Interval EKG QRS Interval Telemetry Strip Reading 07/21/22 01:00 07/21/22 02:00 07/21/22 04:55 Temperature 97.5 F L Temperature Source Temporal Artery Scan Pulse Rate 81 Pulse Rate [Apical] Respiratory Rate 19 Blood Pressure 137/46 L Blood Pressure Mean 76 Blood Pressure Location Right Arm Blood Pressure Position Supine O2 Sat by Pulse Oximetry 98 99 Oxygen Delivery Method Nasal Cannula Nasal Cannula Oxygen Flow Rate 2 2 Telemetry Type Bedside Monitor Telemetry Monitoring Continues Irregular Telemetry Rate (Approximate) 80-90 BPM Telemetry Heart Rate 81 Telemetry SPO2 98 EKG MA Interval 0.26 H EKG QRS Interval 0.06 Telemetry Strip Reading NSR with 1st degree block 07/21/22 06:00 07/21/22 07:00 07/21/22 08:00 Temperature 97.6 F Temperature Source Temporal Artery Scan Pulse Rate 78 Pulse Rate [Apical] Respiratory Rate 20 Blood Pressure 124/71 Blood Pressure Mean 88 Blood Pressure Location Right Arm Blood Pressure Position Supine O2 Sat by Pulse Oximetry 99 Oxygen Delivery Method Nasal Cannula Nasal Cannula Oxygen Flow Rate 2 2 Telemetry Type Bedside Monitor Telemetry Monitoring Continues Irregular Telemetry Rate (Approximate) Telemetry Heart Rate 66 Telemetry SPO2 EKG MA Interval 0.24 H EKG QRS Interval 0.06 Telemetry Strip Reading SR WITH 1ST DEGREE AVB 07/21/22 10:00 07/21/22 10:00 Temperature 97.8 F Temperature Source Temporal Artery Scan Pulse Rate 79 Pulse Rate [Apical] Respiratory Rate 20 Blood Pressure 122/63 Blood Pressure Mean 82 Blood Pressure Location Left Arm Blood Pressure Position Supine O2 Sat by Pulse Oximetry 99 100 Oxygen Delivery Method Nasal Cannula Nasal Cannula Oxygen Flow Rate 2 2 Telemetry Type Telemetry Monitoring Irregular Telemetry Rate (Approximate) Telemetry Heart Rate Telemetry SPO2 EKG MA Interval EKG QRS Interval Telemetry Strip Reading Lab Results Lab Results: Lab Results: Last 24 Hours 07/21/22 07/21/22 07/20/22 07:00 03:45 21:00 WBC 21.70 H D RBC 3.29 L Hgb 10.4 L Hct 31.9 L MCV 97.0 MCH 31.6 H MCHC 32.6 RDW Coeff of Yocasta 13.2 Plt Count 199 Immature Gran % (Auto) 3.8 Neut % (Auto) 86.1 H Lymph % (Auto) 4.1 L [place] % (Auto) 5.3 Eos % (Auto) 0.6 Baso % (Auto) 0.1 Neut # (Auto) 18.7 H Lymph # (Auto) 0.9 [place] # (Auto) 1.2 Eos # (Auto) 0.1 Baso # (Auto) 0.0 Immature Gran # (Auto) 0.8 APTT 36.6 D 180.6 H* D 82.3 H D Sodium 133.8 L 130.0 L Potassium 5.66 H 5.00 Chloride 99.9 101.0 Carbon Dioxide 26.1 22.0 Anion Gap 13.46 12.00 BUN 58.5 H 58.0 H Creatinine 1.92 H 2.10 H Estimated GFR (MDRD) 25.00 23.00 BUN/Creatinine Ratio 30.46 27.61 Glucose 363.7 H 411.0 H D Calcium 8.47 8.30 L Total Bilirubin 0.42 AST 54.6 H ALT 26.1 Alkaline Phosphatase 107.9 Total Protein 7.16 Albumin 3.96 Globulin 3.20 Albumin/Globulin Ratio 1.23 07/20/22 15:05 WBC RBC Hgb Hct MCV MCH MCHC RDW Coeff of Yocasta Plt Count Immature Gran % (Auto) Neut % (Auto) Lymph % (Auto) [place] % (Auto) Eos % (Auto) Baso % (Auto) Neut # (Auto) Lymph # (Auto) [place] # (Auto) Eos # (Auto) Baso # (Auto) Immature Gran # (Auto) APTT 65.6 H D Sodium 130.4 L Potassium 5.98 H Chloride 97.6 L Carbon Dioxide 22.9 Anion Gap 15.88 BUN 56.5 H Creatinine 1.93 H Estimated GFR (MDRD) 25.00 BUN/Creatinine Ratio 29.27 Glucose 529.9 H* D Calcium 7.93 L Total Bilirubin AST ALT Alkaline Phosphatase Total Protein Albumin Globulin Albumin/Globulin Ratio Additional Comments Additional Comments: I have independently reviewed and interpreted the labs/EKGs/imaging ordered during this hospital stay. I have reviewed outside records that are available in our EMR that pertain to medical stay including imaging/notes/labs from previous visits. Active Medications Active Medications: Medications Generic Name Dose Route Start Last Admin Trade Name Freq PRN Reason Stop Dose Admin Acetaminophen 650 mg 07/19/22 21:30 07/19/22 21:53 Acetaminophen 325 Mg Tablet PO 650 mg Q6H PRN Administration Pain Albuterol Sulfate 2.5 mg 07/19/22 12:00 07/21/22 04:50 Albuterol Sulfate 0.083% Vial.Neb NEB 2.5 mg RTQ6H ROSALIND Administration Aspirin 81 mg 07/21/22 08:30 07/21/22 09:13 Aspirin 81 Mg Tab.Chew PO 81 mg DAILYWM ROSALIND Administration Atorvastatin Calcium 40 mg 07/19/22 09:00 07/21/22 09:14 Atorvastatin Calcium 20 Mg Tablet PO 40 mg DAILY ROSALIND Administration Azithromycin 500 mg 07/19/22 09:30 07/21/22 09:16 Azithromycin 250 Mg Tablet PO 07/21/22 23:59 500 mg DAILY ROSALIND Administration Famotidine 20 mg 07/19/22 09:00 07/21/22 10:02 Famotidine 20 Mg Tablet PO 20 mg Q48HR ROSALIND Administration Ferrous Sulfate 324 mg 07/18/22 21:00 07/21/22 09:16 Ferrous Sulfate 324 Mg Tablet. PO 324 mg BID ROSALIND Administration Hydrochlorothiazide 12.5 mg 07/20/22 09:00 07/21/22 09:14 Hydrochlorothiazide 25 Mg Tablet PO 12.5 mg DAILY ROSALIND Administration Heparin Sodium/Sodium Chloride 25,000 unit in 250 mls @ 13.172 mls/hr 07/20/22 08:30 07/21/22 08:30 Heparin 25,000 Unit/250 Ml Nacl IV 7 unit/kg/hr TITRATION ROSALIND 7.7 mls/hr Administration Protocol 12 UNIT/KG/HR Insulin Glargine 35 unit 07/18/22 20:00 07/20/22 21:45 Insulin Glargine,Hum.Rec.Anlog 100 Units/Ml SUBCUT 35 unit BEDTIME ROSALIND Administration Insulin Human Lispro 0 unit 07/18/22 20:02 07/21/22 06:29 Insulin Lispro 100 Unit/Ml (3 Ml) Vial SUBCUT 8 unit PRN PRN Administration Hyperglycemia Protocol Linagliptin 5 mg 07/19/22 09:00 07/21/22 09:14 Linagliptin 5 Mg Tablet PO 5 mg DAILY ROSALIND Administration Metoprolol Tartrate 50 mg 07/18/22 21:00 07/21/22 09:14 Metoprolol Tartrate 50 Mg Tablet PO 50 mg BID ROSALIND Administration Ondansetron HCl 4 mg 07/19/22 21:27 07/20/22 18:02 Ondansetron Hcl/Pf 4 Mg/2 Ml Sdv IVP 4 mg Q6H PRN Administration Nausea / Vomiting Sodium Chloride 1 syr 07/18/22 13:53 07/19/22 13:26 0.9% Sodium Chloride 10 Ml Disp.Syrin IVF 1 syr PRN PRN Administration To flush IV Sodium Chloride 1 syr 07/19/22 21:00 07/21/22 06:31 0.9% Sodium Chloride 10 Ml Disp.Syrin IVF 1 syr Q8HR ROSALIND Administration Plan Plan: A&P: 1. NSTEMI - Treating conservatively per son/POA's wishes. Heparin drip x48 hours, will stop tomorrow morning. PTT q6hrs and titrate to therapeutic range per protocol. Monitor for signs of bleeding. Hold eliquis. 2. Acute hyperkalemia - Worsened again overnight. Give 10U insulin IV. Monitor BS q1hr x6 hours, then ACHS. Calcium gluconate 1 gm ordered. Lasix 40 mg IV x1. Will do kayexalate this evening if not improving. Hold losartan and potassium supplement. Tele. Repeat BMP at 1500. 2. New onset a fib - Rate controlled. Continue metoprolol, she is rate controlled. Echo performed with LVH and EF in 40s. Hold eliquis while on heparin drip. 3. Elevated d dimer - Unable to perform CTA due to renal function. Will defer VQ scan initially planned in setting of NSTEMI. 4. Acute bronchitis - CXR negative. Patient coughing and wheezing. Stop solumedrol due to hyperglycemia and continue azithromycin 500 mg PO. Continue albuterol nebs q6hrs as well. 5. Chronic kidney disease, stage IV - Chronic, stable. Monitor closely. 6. Hypertension - chronic stable. Continue metoprolol. Hold losartan as above. 7. DMT2, insulin dependent - Chronic, stable. Continue home insulin. Diabetic diet. SS insulin. 8. Hyperlipidemia - chronic stable. Continue home statin. DVT prophylaxis: Heparin Discussed in depth patient condition to son, Mj. Explained potential decline in condition in near future. Discussed need for eliquis upon discharge for PAF, he understands risks of bleeding due to this. He would like to proceed with eliquis to prevent stroke. He is agreeable to plan of care. Discussed possible discharge tomrorow. Made inpatient 07/20. Discussed in detail with Dr. Christiano Greenwood, nursing staff, and patient's family. Review Statement Review Statement: I have personally discussed and reviewed the patient's visit/currently labs/imaging/decision making with Dr. Greenwood, my supervising attending. Greater that 50 minutes spent with patient, 50% of the time spent with this patient was devoted to counseling and coordination of care.
[2022-07-21 13:22] LABS: CALCIUM 8.4 mg/dL (8.4-10.2); CARBON DIOXIDE 26.8 mmol/L (22-30.0); CHLORIDE 100.4 mmol/L (98-107); CREATININE 1.93 mg/dL (0.60-1.30); GLUCOSE 361.8 mg/dL (74-106); POTASSIUM 4.83 mmol/L (3.5-5.1); SODIUM 133.6 mmol/L (134.5-145)
[2022-07-21] MEDS: LANTUS SUBCUT SCH (20:17)
[2022-07-21] MEDS ORDERED: HUMALOG SUBCUT ONE (21:51)
[2022-07-22] MEDS: ALBUTEROL 0.083% NEB NEB SCH (05:00)
[2022-07-22] MEDS: HUMALOG SUBCUT PRN (05:50)
[2022-07-22] MEDS: HEPARIN 25,000 UNIT/250 ML NACL 25,000 UNIT/250 ML BAG IV SCH ×2 (06:53→09:21)
[2022-07-22 07:28] LABS: ALANINE AMINOTRANSFERASE 24.5 U/L (0-35); ALBUMIN 3.73 g/dL (3.5-5.0); ALKALINE PHOSPHATASE 108.4 U/L (53-141); ASPARTATE AMINO TRANSFERASE 36.2 U/L (14-36); BILIRUBIN,TOTAL 0.36 mg/dL (0.2-1.3); CALCIUM 8.31 mg/dL (8.4-10.2); CARBON DIOXIDE 26.4 mmol/L (22-30.0); CHLORIDE 105.2 mmol/L (98-107); CREATININE 1.81 mg/dL (0.60-1.30); POTASSIUM 4.11 mmol/L (3.5-5.1); SODIUM 137.1 mmol/L (134.5-145); TOTAL PROTEIN 6.86 g/dL (6.3-8.2)
[2022-07-22 07:35] LABS: BLOOD UREA NITROGEN 63.3 mg/dL (7-17)
[2022-07-22] MEDS: HYDROCHLOROTHIAZIDE PO SCH (08:16)
[2022-07-22] MEDS: ASPIRIN CHEWABLE PO SCH (08:16)
[2022-07-22] MEDS: LOPRESSOR PO SCH (08:16)
[2022-07-22] MEDS: FERROUS SULFATE PO SCH (08:16)
[2022-07-22] MEDS: TRADJENTA PO SCH (08:16)
[2022-07-22] MEDS: LIPITOR PO SCH (08:16)
[2022-07-22 10:05] LABS: HEMATOCRIT 31.1 % (37.0-47.0); HEMOGLOBIN 9.8 g/dl (12.0-16.0); MEAN CORPUSCULAR HEMOGLOBIN 31.3 pg (27.0-31.0); MEAN CORPUSCULAR HGB CONC 31.5 (31.8-35.4); MEAN CORPUSCULAR VOLUME 99.4 fl (81.0-99.0); PLATELET COUNT 184 10^3/uL (140-440); RDW COEFFICIENT OF VARIATION 13.2 % (11.6-14.8); RED BLOOD COUNT 3.13 10^6/ul (4.20-5.40); WHITE BLOOD COUNT 13.76 K/ul (4.6-10.2)
[2022-07-22 10:09] VITALS: BP 106/64; RESP 23; TEMP 97.9
[2022-07-22 10:31] LABS: ANISOCYTOSIS NOT PRESENT (NOT PRESENT)
--- NOTE | 2022-07-22 10:56 | DCSUM ---
Admission Date Admission Date: 07/18/22 Discharge Date Discharge Date: 07/22/22 Admission Diagnosis Admission Diagnosis: 1. Acute hyperkalemia 2. New onset a fib 3. Elevated d dimer Discharge Diagnosis Discharge Diagnosis: 1. NSTEMI 2. Acute hyperkalemia, resolved 2. New onset a fib - Rate controlled. 3. Elevated d dimer 4. Acute bronchitis, improved 5. Chronic kidney disease, stage IV - Chronic, stable. 6. Hypertension - chronic stable. 7. DMT2, insulin dependent - Chronic, stable. 8. Hyperlipidemia - chronic stable. Hospital Provider Hospital Provider: DREW LINDSAY PA-C, [facility] Primary Care Physician Primary Care Physician: MOY ROBINS Summary of History and Physical Summary of History and Physical: Patient is a 82 year [facility] who was sent to ER for concern of low O2 reading. Upon arrival to ER patient's oxygen saturation was normal. ERP contacted nurse at [facility] who gave more information regarding patient being SOB recently. D dimer was elevated, bnp elevated. CXR normal. Unable to perform CTA due to renal function. K+ >5.5 as well. EKG showed a fib which is a new diagnosis for her. She was given 1 mg/kg of lovenox. She was admitted to obs on medsurg. Patient takes HCTZ, lasix, losartan, and potassium supplement all affecting potassium levels. Losartan and potassium supplement held. Repeat K+ this morning worse. Pt is pleasantly confused. She is oriented to self only, she read the date off the bulletin board. She is unsure of her pmhx but denies cardiac is sues. Denies complaints today. No history of a fib found in records available. Hospital Course Subjective: Patient was treated for bronchitis with azithromycin and solumedrol. Patient was admitted and given calcium gluconate, insulin, dextrose, albuterol, lasix, and kayexalate to improve her K+. Her K+ fluctuated up and down throughout stay. Losartan and potassium supplements were held and ultimately discontinued on discharge. Echo performed, report still pending. Per Dr. Beau Greenwood, EF mid 40s, some atrial enlargement, LVH, hypokinetic septum. Started on eliquis 2.5 for new onset a fib. Night of 07/19 patient experienced nausea, shoulder pain, and gum pain. Cardiac work up started. EKG showed early repolarization. However troponin, initially normal, bumped to 3. Discussed with son/POA Mj who wished to treat conservatively, no transfer or cardiac cath. She was started on aspirin,heparin drip for 48 hours. Patient already on a beta marisol. Patient went on an insulin drip on 07/20 due to hyperkalemia and hyperglycemia. Solumedrol stopped. On day of discharge K+ was 4.1 and glucose 272, significantly improved. She has not complained of chest pain. Vitals have been stable. Patient has remained at baseline mentation, pleasantly confused. Will discharge on daily baby aspirin, eliquis 2.5 mg bid, and discontinue losartan and potassium replacement. Recommend repeat bmp in 2-3 days. F/u with PCP within 2-3 days. Outpatient cardio f/u. Son Mj in agreement with plan of care. Discussed risks vs benefits of eliquis, he understands the risks of bleeding and is in agreement with starting it. Appearance: Pleasant, No Apparent Distress and Alert HEENT: MMM CVS: No Murmur, No Rubs and No Gallop Abdomen: Soft, Non-Tender and No Distention Respiratory: No Dyspnea Extremities: Other (Nonpitting edema noted. ) Vital Signs: Most Recent Vital Signs Temperature 97.9 F 07/22/22 10:00 Temperature Source Oral 07/22/22 10:00 Temperature Source Infrared 07/18/22 13:49 Pulse Rate 66 07/22/22 10:00 Respiratory Rate 23 H 07/22/22 10:00 Blood Pressure 106/64 07/22/22 10:00 Blood Pressure Mean 78 07/22/22 10:00 Blood Pressure Left Arm 132/74 07/18/22 20:04 Blood Pressure Location Right Arm 07/22/22 10:00 Blood Pressure Position Sitting 07/22/22 10:00 O2 Sat by Pulse Oximetry 100 07/22/22 10:00 Oxygen Delivery Method Room Air 07/22/22 10:00 Oxygen Flow Rate 2 07/22/22 08:00 Height 5 ft 6 in 07/18/22 20:04 Weight 242 lb 07/18/22 20:04 Telemetry Type Bedside Monitor 07/22/22 06:56 Telemetry Monitoring Continues 07/22/22 06:56 Irregular Telemetry Rate (Approximate) 80-90 BPM 07/21/22 01:00 Telemetry Heart Rate 68 07/22/22 06:56 Telemetry SPO2 100 07/22/22 06:56 EKG PA Interval 0.26 H 07/22/22 06:56 EKG QRS Interval 0.06 07/22/22 06:56 Telemetry Strip Reading SR WITH 1ST DEGREE AVB 07/22/22 06:56 Imaging: EXAM: CHEST RADIOGRAPH TECHNIQUE: Two views. Frontal and lateral. HISTORY: No COMPARISON: 02/08/2022 FINDINGS: There is cardiomegaly. Pulmonary vasculature and mediastinal contours are otherwise intact. No focal infiltrate, effusion, or pneumothorax is identified. IMPRESSION: 1. Cardiomegaly. No acute cardiopulmonary disease. EXAM: BILATERAL LOWER EXTREMITY DEEP VENOUS ULTRASOUND WITH DOPPLER IMAGING HISTORY: Elevated D-dimer. TECHNIQUE: Wall-scale ultrasound with compression maneuvers and color and spectral Doppler ultrasound at rest and with augmentation of the veins was performed. Images were obtained and stored in a permanent archive. COMPARISON: None FINDINGS: RIGHT LOWER EXTREMITY: Common Femoral Vein: Normal compression. Normal flow on color Doppler images. Normal response to augmentation. Deep Femoral Vein: Normal compression. Normal flow on color Doppler images. Normal response to augmentation. Femoral Vein: Non-visualization of the mid superficial femoral vein. Popliteal Vein: Normal compression. Normal flow on color Doppler images. Normal response to augmentation. Peroneal Vein: Normal compression. Normal flow on color Doppler images. Posterior Tibial Vein: Normal compression. Normal flow on color Doppler images. Anterior Tibial Vein: Not visualized. . Greater Saphenous Vein (Superficial): Normal compression. Normal flow on color Doppler images. Other: No reflux. LEFT LOWER EXTREMITY: Common Femoral Vein: Normal compression. Normal flow on color Doppler images. Normal response to augmentation. Deep Femoral Vein: Normal compression. Normal flow on color Doppler images. Normal response to augmentation. Femoral Vein: Non-visualization of the mid superficial femoral vein Popliteal Vein: Not visualized Peroneal Vein: Not visualized . Posterior Tibial Vein: Normal compression. Normal flow on color Doppler images. Anterior Tibial Vein: Not visualized. . Greater Saphenous Vein (Superficial): Normal compression. Normal flow on color Doppler images. Other: No reflux. IMPRESSION: No deep venous thrombosis (DVT) in the visualized portion of the bilateral lower extremities. No superficial venous thrombosis (SVT) in the visualized aspect of the bilateral lower extremities at the levels examined. Lab Results Last 24 Hours: 0507/22/22 07/22/22 07:30 07:10 01:00 WBC 13.76 H D RBC 3.13 L Hgb 9.8 L Hct 31.1 L MCV 99.4 H MCH 31.3 H MCHC 31.5 L RDW Coeff of Yocasta 13.2 Plt Count 184 Neutrophils % (Manual) 61.0 Lymphocytes % (Manual) 25.0 Monocytes % (Manual) 6.0 Eosinophils % (Manual) 2.0 Reactive Lymphocytes 6.0 H Anisocytosis Not present APTT 90.9 H D 67.1 H D Sodium 137.1 Potassium 4.11 Chloride 105.2 Carbon Dioxide 26.4 Anion Gap 9.61 BUN 63.3 H* Creatinine 1.81 H Estimated GFR (MDRD) 27.00 BUN/Creatinine Ratio 34.97 Glucose 272.0 H D Calcium 8.31 L Total Bilirubin 0.36 AST 36.2 H ALT 24.5 Alkaline Phosphatase 108.4 Total Protein 6.86 Albumin 3.73 Globulin 3.13 Albumin/Globulin Ratio 1.19 07/21/22 07/21/22 19:00 13:00 WBC RBC Hgb Hct MCV MCH MCHC RDW Coeff of Yocasta Plt Count Neutrophils % (Manual) Lymphocytes % (Manual) Monocytes % (Manual) Eosinophils % (Manual) Reactive Lymphocytes Anisocytosis APTT 53.9 H D 32.4 Sodium 133.6 L Potassium 4.83 Chloride 100.4 Carbon Dioxide 26.8 Anion Gap 11.23 BUN 61.0 H* Creatinine 1.93 H Estimated GFR (MDRD) 25.00 BUN/Creatinine Ratio 31.60 Glucose 361.8 H Calcium 8.40 Total Bilirubin AST ALT Alkaline Phosphatase Total Protein Albumin Globulin Albumin/Globulin Ratio Discharge Instructions Discharge Planning: Activity: advance as tolerated Diet: ADA 1800 morales diet; closely monitor sugar intake Medications: Eliquis and aspirin added, stopped potassium supplement and losartan DX: Nonstemi, hyperkalemia, hyperglycemia F/u with pcp in 2-3 days Recommend repeat BMP in 2-3 days Recommend outpatient cardiology follow up Discharge Planning > [address] Gavin Greenwood Medications Given This Visit: Medications Generic Name Dose Route Start Last Admin Trade Name Freq PRN Reason Stop Dose Admin Acetaminophen 650 mg 07/19/22 21:30 07/19/22 21:53 Acetaminophen 325 Mg Tablet PO 650 mg Q6H PRN Administration Pain Albuterol Sulfate 2.5 mg 07/19/22 12:00 07/22/22 05:00 Albuterol Sulfate 0.083% Vial.Neb NEB 2.5 mg RTQ6H ROSALIND Administration Aspirin 81 mg 07/21/22 08:30 07/22/22 08:16 Aspirin 81 Mg Tab.Chew PO 81 mg DAILYWM ROSALIND Administration Atorvastatin Calcium 40 mg 07/19/22 09:00 07/22/22 08:16 Atorvastatin Calcium 20 Mg Tablet PO 40 mg DAILY ROSALIND Administration Famotidine 20 mg 07/19/22 09:00 07/21/22 10:02 Famotidine 20 Mg Tablet PO 20 mg Q48HR ROSALIND Administration Ferrous Sulfate 324 mg 07/18/22 21:00 07/22/22 08:16 Ferrous Sulfate 324 Mg Tablet.Dr PO 324 mg BID ROSALIND Administration Hydrochlorothiazide 12.5 mg 07/20/22 09:00 07/22/22 08:16 Hydrochlorothiazide 25 Mg Tablet PO 12.5 mg DAILY ROSALIND Administration Insulin Glargine 35 unit 07/18/22 20:00 07/21/22 20:17 Insulin Glargine,Hum.Rec.Anlog 100 Units/Ml SUBCUT 35 unit BEDTIME ROSALIND Administration Insulin Human Lispro 0 unit 07/18/22 20:02 07/22/22 05:50 Insulin Lispro 100 Unit/Ml (3 Ml) Vial SUBCUT 6 unit PRN PRN Administration Hyperglycemia Protocol Linagliptin 5 mg 07/19/22 09:00 07/22/22 08:16 Linagliptin 5 Mg Tablet PO 5 mg DAILY ROSALIND Administration Metoprolol Tartrate 50 mg 07/18/22 21:00 07/22/22 08:16 Metoprolol Tartrate 50 Mg Tablet PO 50 mg BID ROSALIND Administration Ondansetron HCl 4 mg 07/19/22 21:27 07/20/22 18:02 Ondansetron Hcl/Pf 4 Mg/2 Ml Sdv IVP 4 mg Q6H PRN Administration Nausea / Vomiting Sodium Chloride 1 syr 07/18/22 13:53 07/19/22 13:26 0.9% Sodium Chloride 10 Ml Disp.Syrin IVF 1 syr PRN PRN Administration To flush IV Sodium Chloride 1 syr 07/19/22 21:00 07/22/22 05:22 0.9% Sodium Chloride 10 Ml Disp.Syrin IVF 1 syr Q8HR ROSALIND Administration Medications Given This Visit: Medications at Discharge (Home Meds & RX) linagliptin 5 mg tablet (Tradjenta) 5 mg PO DAILY 04/08/17 acetaminophen 325 mg tablet 650 mg PO Q4H PRN Analgesia 07/24/17 ferrous sulfate 325 mg (65 mg iron) tablet 325 mg PO BID 07/24/17 furosemide 20 mg tablet 20 mg PO QDAC 08/14/17 metoprolol tartrate 50 mg tablet 50 mg PO BID 08/14/17 atorvastatin 40 mg tablet 40 mg PO DAILY 10/07/18 famotidine 20 mg tablet (Pepcid) 20 mg PO QDAY 03/06/19 insulin aspart U-100 100 unit/mL subcutaneous solution (Novolog U-100 Insulin aspart) 15 unit subcut TID 03/06/19 insulin glargine 100 unit/mL (3 mL) subcutaneous pen (Basaglar KwikPen U-100 Insulin) 35 unit subcut QHS 03/06/19 magnesium hydroxide 400 mg/5 mL oral suspension (Milk of Magnesia) 30 ml PO QDAY 03/06/19 cranberry extract 425 mg capsule 425 mg PO BID 05/08/19 hydrochlorothiazide 12.5 mg capsule 12.5 mg PO QDAY 05/08/19 apixaban 2.5 mg tablet (Eliquis) 2.5 mg PO BID Paroxysmal a fib #60 tabs 07/22/22 aspirin 81 mg chewable tablet 81 mg PO DAILYWM #30 tabs 07/22/22 Discharge Plan Discharge Discharge Orders: Discharge Patient (ONCE); Ordered 07/22/22 Ordered By: DREW LINDSAY Activity Restrictions/Additional Instructions: Activity: advance as tolerated Diet: ADA 1800 morales diet; closely monitor sugar intake Medications: Eliquis and aspirin added, stopped potassium supplement and losartan DX: Nonstemi, hyperkalemia, hyperglycemia F/u with pcp in 2-3 days Recommend repeat BMP in 2-3 days Recommend outpatient cardiology follow up Instructions: Hyperkalemia (DC), Diabetes and Nutrition (DC) Care Plan Goals: Problem: Altered Blood Glucose Level Goal: Maintain blood glucose level Within Normal Limits Instructions: Diet as ordered Diet consult if indicated Monitor accucheck levels Monitor signs/symptoms of altered glucose Patient Disposition: TRANSFER SNF Prescriptions: New aspirin 81 mg Tablet,Chewable 81 mg PO DAILYWM Qty: 30 0RF Eliquis 2.5 mg tablet 2.5 mg PO BID Qty: 60 0RF Continued atorvastatin 40 MG tablet 40 mg PO DAILY Tradjenta 5 MG tablet 5 mg PO DAILY acetaminophen 325 MG tablet 650 mg PO Q4H PRN (Reason: Analgesia) ferrous sulfate 325 MG tablet 325 mg PO BID metoprolol tartrate 50 MG tablet 50 mg PO BID furosemide 20 MG tablet 20 mg PO QDAC insulin glargine [Basaglar KwikPen U-100 Insulin] 100 unit/mL (3 mL) insulin pen 35 unit subcut QHS insulin aspart U-100 [Novolog U-100 Insulin aspart] 100 unit/mL solution 15 unit SUBCUT TID famotidine [Pepcid] 20 mg tablet 20 mg PO QDAY magnesium hydroxide [Milk of Magnesia] 400 mg/5 mL suspension 30 ml PO QDAY cranberry extract 425 mg capsule 425 mg PO BID hydrochlorothiazide 12.5 mg capsule 12.5 mg PO QDAY Discontinued potassium chloride 10 mEq tablet,ER particles/crystals 10 meq PO DAILY potassium chloride [Klor-Con 10] 10 MEQ tablet extended release 10 meq PO DAILY losartan 50 mg tablet 50 mg PO QDAY Did you review [place] [employer] for ALL controlled substances?: Not Applicable Discussed opioids are addictive and Narcan is available by prescription or from pharmacy.: No Condition: Good
--- NOTE | 2022-07-23 06:58 | ECHO2D ---
Date of Exam: 07/19/2022 Ordering Physician: DEEPTHIIST/ Sommer ROBINS Room #: 110 Reason for Echo: A-FIB, HTN, DM2, CARDIOMEGALY M-Mode Normal Adult Results LV Dimensions Normal Adult Results AoV Opening excursions >1.6 >1.6 LVEDD-base- 3.5-5.8 5.2 Ao root dimensions 2.0-3.7 3.5 LVESD-base- 3.1-4.6 L. Atrium dimensions 1.9-3.8 4.3 Post. Wall thickness 0.8-1.1 1.3 IV septum (thickness) 0.7-1.2 1.3 Post. Wall excursion 0.72-1.3 NORMAL Septal motion -- Systolic motion R. Ventricular cavity 1.5-2.0 NORMAL LVEF 60% 42% Paradoxical septal wall motion NORMAL 2-D : AKINETIC SEPTAL WALL--ENLARGED LEFT ATRIAL CAVITY--VALVES MRACI, NO EFFUSION, NO THROMBUS M-MODE: MV: NORMAL AV: NORMAL TV: NORMAL PV: CHAMBER SIZE: ENLARGED LEFT ATRIAL CAVITY WALL MOTION: AKINETIC SEPTAL WALL PERICARDIUM: NORMAL INTERPRETATION: 1. LEFT VENTRICLE HYPERTROPHY WITH LEFT ATRIAL CAVITY ENLARGED 2. HYPO TO AKINETIC SEPTAL WALL EJECTION FRACTION 42% 3. NORMAL LEFT VENTRICLE SIZE 4. NORMAL VALVES MTDD
== END 2022-07-22 10:51 | DRG 637 ==
LOC: ED 13:48 → INTOOBSV 18:54 → MEDSURG A 18:54 → SCU 07-20 18:30
PROVIDERS: ADMIT Hospitalist; ATTEND Physician Assistant
DX: E11.42 Type 2 diabetes mellitus with diabetic polyneuropathy; R62.7 Adult failure to thrive; Z68.39 Body mass index [BMI] 39.0-39.9, adult; E87.5 Hyperkalemia; M25.561 Pain in right knee; Z20.822 Contact with and (suspected) exposure to COVID-19; I21.4 Non-ST elevation (NSTEMI) myocardial infarction; M51.36 Other intervertebral disc degeneration, lumbar region; I48.91 Unspecified atrial fibrillation; E78.5 Hyperlipidemia, unspecified; R79.1 Abnormal coagulation profile; E11.65 Type 2 diabetes mellitus with hyperglycemia; N18.4 Chronic kidney disease, stage 4 (severe); R79.0 Abnormal level of blood mineral; R41.841 Cognitive communication deficit; E66.9 Obesity, unspecified; E11.22 Type 2 diabetes mellitus with diabetic chronic kidney disease; I12.9 Hypertensive chronic kidney disease with stage 1 through stage 4 chronic kidney disease, or unspecified chronic kidney disease; R25.1 Tremor, unspecified; R06.2 Wheezing; J20.9 Acute bronchitis, unspecified; I25.10 Atherosclerotic heart disease of native coronary artery without angina pectoris; Z79.4 Long term (current) use of insulin; Z51.81 Encounter for therapeutic drug level monitoring; Z79.899 Other long term (current) drug therapy; R41.0 Disorientation, unspecified